=== PATIENT | male | born 1945 | race Caucasian/White ===

== ENCOUNTER 2017-07-27 09:28 | Inpatient (IN) | payer OTHER ==
[2017-07-27] MEDS ORDERED: LIDOCAINE HCL 4% TOPICAL SOLN 50ML ONE (09:48)
[2017-07-27] MEDS ORDERED: OXYMETAZOLINE 30 ML NASAL SPRAY ONE (09:48)
[2017-07-27] MEDS ORDERED: LR 1,000 ML IV ONE (09:55)
[2017-07-27] MEDS ORDERED: LIDOCAINE 1% 2 ML INJ ID PRN (09:55)
--- NOTE | 2017-07-27 10:14 | PDHPUP ---
History & Physical Update H&P update statement: This history and physical update is based on an assessment of the patient which was completed after admission or registration (within 24 hours), but prior to the surgery/procedure. H&P update: H&P reviewed & patient examined
--- NOTE | 2017-07-27 10:43 | CPEKG ---
Heart Rate: 58 RR Interval: 1034 P-R Interval: 212 QRSD Interval: 96 QT Interval: 452 QTC Interval: 445 P Centerpoint: -8 QRS Centerpoint: -40 T Wave Centerpoint: 44 EKG Severity - ABNORMAL ECG - EKG Impression: SINUS BRADYCARDIA EKG Impression: VENTRICULAR PREMATURE COMPLEX EKG Impression: LEFT ANTERIOR FASCICULAR BLOCK Electronically Signed By: Esteban Mittal 28-Jul-2017 09:42:39
[2017-07-27] MEDS ORDERED: MIDAZOLAM 2 MG/2 ML VIAL IVP ONE (11:10)
--- NOTE | 2017-07-27 11:12 | PDANEPAE ---
ANE Past Medical History - Cardiovascular History Hx Hypertension: Yes Hx Arrhythmias: No Hx Chest Pain: No Hx Coronary Artery / Peripheral Vascular Disease: Yes Hx CHF / Valvular Disease: No Hx Palpitations: No Cardiovascular History Comment: stent placed 10 yrs ago - Pulmonary History Hx COPD: No Hx Asthma/Reactive Airway Disease: No Hx Recent Upper Respiratory Infection: No Hx Oxygen in Use at Home: Yes O2 in Use at Home (L/minute): 4L Hx Sleep Apnea: Yes Sleep Apnea Screening Result - Last Documented: Positive Pulmonary History Comment: CORRINE - Neurologic History Hx Cerebrovascular Accident: No Hx Seizures: No Hx Dementia: No - Endocrine History Hx Diabetes: Yes Endocrine History Comment: IDDM - Renal History Hx Renal Disorders: Yes Renal History Comment: RENAL FAILURE - Liver History Hx Hepatic Disorders: No - Neurological & Psychiatric Hx Hx Neurological and Psychiatric Disorders: Yes Neurological / Psychiatric History Comment: TREMOR LEFT ARM - Cancer History Hx Cancer: No - Congenital Disorder History Hx Congenital Disorders: No - GI History Hx Gastrointestinal Disorders: No - Other Health History Other Health History: lump in throat - Chronic Pain History Chronic Pain: No - Surgical History Prior Surgeries: 10yrs ago back surgery. miniscus removed ANE Review of Systems Review of Systems: - Exercise capacity METS (RN): 3 METS ANE Patient History - Allergies Allergies/Adverse Reactions: No Known Allergies Allergy (Verified 07/23/17 14:29) - Home Medications Home Medications: Allopurinol 07/23/17 [Last Taken 1 Day Ago ~07/26/17] Amlodipine Besylate 07/23/17 [Last Taken 1 Day Ago ~07/26/17] Aspirin 81mg (*) 07/23/17 [Last Taken 2 Days Ago ~07/25/17] Lantus 07/23/17 [Last Taken 07/26/17 19:00] Metoprolol Succinate 07/23/17 [Last Taken 1 Day Ago ~07/26/17] Pioglitazone HCl 07/23/17 [Last Taken 1 Day Ago ~07/26/17] - NPO status NPO Since - Liquids (Date): 07/26/17 NPO Since - Liquids (Time): 19:00 NPO Since - Solids (Date): 07/26/17 NPO Since - Solids (Time): 19:00 - Anes Hx Anes Hx: no prior problems - Smoking Hx Smoking Status: Never smoked - Family Anes Hx Family Hx Anesthesia Complications: none ANE Labs/Vital Signs - Labs Result Diagrams: 07/27/17 10:20 - Vital Signs Blood Pressure: 156/73 Heart Rate: 57 Respiratory Rate: 18 O2 Sat (%): 97 Height: 182.88 cm Weight: 120.656 kg ANE Physical Exam - Airway Neck exam: FROM Mallampati Score: Class 3 Mouth exam: normal dental/mouth exam - Pulmonary Pulmonary: no respiratory distress, no rales or rhonchi, clear to auscultation - Cardiovascular Cardiovascular: regular rate and rhythym, no murmur, rub, or gallop - ASA Status ASA Status: III ANE Anesthesia Plan Anesthesia Plan: MAC (Tracheostomy under MAC, then laryngoscopy and biopsies under GA.)
[2017-07-27] MEDS ORDERED: ACETAMINOPHEN 500 MG TAB PO PRN (11:13)
[2017-07-27] MEDS ORDERED: HYDROCODONE/APAP 5/325 TAB PO PRN (11:13)
[2017-07-27] MEDS ORDERED: ONDANSETRON 4 MG/2 ML VIAL IVP PRN ×2 (11:13→12:51)
[2017-07-27] MEDS ORDERED: NALOXONE HCL 0.4 MG/ML INJ IVP PRN (11:13)
[2017-07-27] MEDS ORDERED: ONDANSETRON 4 MG/2 ML VIAL ONE ×2 (11:23→12:49)
[2017-07-27] MEDS ORDERED: fentaNYL 100 MCG/2 ML INJ ONE ×2 (11:23→13:22)
[2017-07-27] MEDS ORDERED: PROPOFOL 200 MG/20 ML VIAL ONE (11:23)
[2017-07-27] MEDS ORDERED: LIDOCAINE 2% 5 ML SDV ONE (11:27)
[2017-07-27] MEDS ORDERED: SUCCINYLCHOLINE CHLORIDE 200 MG/10 ML SYR IVP ONE (12:21)
--- NOTE | 2017-07-27 12:45 | POSTOPPROG ---
Post Op Note Date of Operation: 07/27/17 Surgeon: Jovany Alcaraz Welfare Adviser: Sonny Anesthesiologist: Sarah Anesthesia: IV Sedation Pre-op Diagnosis: tumor base of tonguwe with airway obstructiomn Post-op Diagnosis: same Procedure: tracheostomy laryngoscopy and biopsy of base of tongue lesion Findings: Huge base of tongue tumor Inf/Abcess present in the surg proc area at time of surgery?: No Depth: Deep Incisional (Fascial) EBL: 50-100 Total fluids administered: 500 Complications: none
--- NOTE | 2017-07-27 12:48 | POSTANESTH ---
Post Anesthetic Evaluation Cardiovascular Status: Normal, Stable Respiratory Status: Other, See Comment (Tolerating new trach reasonably well.) Level of Consciousness/Mental Status: Can Participate in Eval, Alert and Oriented Pain Control: Adequate, Prn Tx Ordered Nausea/Vomiting Control: Adequate, Prn Tx Ordered Complications Possibly Related to Anesthesia: None Noted
[2017-07-27] MEDS ORDERED: HYDROCOD/APAP 7.5/325 IN 15ML UDCUP PO PRN (12:51)
[2017-07-27] MEDS ORDERED: PROMETHAZINE HCL 25 MG/ML INJ ONE (13:13)
[2017-07-27] MEDS: PROMETHAZINE HCL 25 MG/ML INJ IVP PRN ×2 (13:17→13:45)
[2017-07-27] MEDS: fentaNYL 100 MCG/2 ML INJ IVP PRN ×2 (13:25→13:45)
--- NOTE | 2017-07-27 14:40 | SOAPPROG ---
SOAP Progress Note Assessment/Plan: Assessment: 71 year old male s/p direct laryngoscopy, base of tongue biopsy, and placement of tracheostomy by Dr. Alcaraz. He is doing well. Tracheostomy secure. Frozen section consistent was with squamous cell carcinoma. Findings discussed with patient and his . Plans to change tracheostomy tube and discharge 3-5 days. We will see patient tomorrow. *Patient was also evaluated by Dr. Dennis.* 07/27/17 14:35 Subjective: Patient doing well. Minimal pain. Breathing much improved with tracheostomy in place. Objective: Vital Signs Temp Pulse Resp BP Pulse Ox 36.5 C 56 L 10 L 139/62 H 96 07/27/17 13:59 07/27/17 13:59 07/27/17 13:59 07/27/17 14:14 07/27/17 13:59 Laboratory Results 07/27/17 10:20 07/26/17 07/27/17 07/28/17 05:59 05:59 05:59 Intake Total 600 Output Total 75 Balance 525 - Time Spent With Patient Time Spent With Patient: 15 minutes - Pending Discharge Pending Discharge Within 24 Hours: No Physical Exam - Physical Exam General Appearance: alert, no apparent distress EENT: other (Tracheostomy in place. Secure. Minimal secretions.) Respiratory: No respiratory distress, No stridor Skin: normal color ICD10 Worksheet Patient Problems: Problems Problem Status Onset Carcinoma of base of tongue Acute - ICD10 Problem Qualifiers (1) Carcinoma of base of tongue
--- NOTE | 2017-07-28 07:44 | SOAPPROG ---
SOAP Progress Note Assessment/Plan: Assessment: pt with mild pain some thick trach secretions trach function adequate Plan: 07/28/17 07:40 in crease activity, ambulate. Encourage p.o. Will have rt and med onc see patient once final path returned. Will ask for hospitalist assist with glucose management 07/28/17 07:43 Objective: Vital Signs Temp Pulse Resp BP Pulse Ox 36.7 C 76 20 124/53 H 93 07/27/17 18:00 07/28/17 06:00 07/28/17 06:00 07/28/17 06:00 07/28/17 06:00 Laboratory Results 07/27/17 10:20 07/27/17 07/28/17 07/29/17 05:59 05:59 05:59 Intake Total 1181 Output Total 75 Balance 1106 ICD10 Worksheet Patient Problems: Problems Problem Status Onset Carcinoma of base of tongue Acute
--- NOTE | 2017-07-28 08:45 | PDMN ---
Medical Necessity Medical necessity: [facility] IP only surgery; cpt 70438 (Head & Neck Surgery) s/p direct laryngoscopy, base of tongue biopsy & placement of tracheostomy; per op report & order 07/28/17
[2017-07-28] MEDS ORDERED: ALLOPURINOL 300 MG TAB PO SCH (09:00)
[2017-07-28] MEDS ORDERED: MULTIVITAMINS 1 EACH TAB PO SCH (09:00)
[2017-07-28] MEDS ORDERED: PIOGLITAZONE HCL 15 MG TAB PO SCH (09:00)
[2017-07-28] MEDS ORDERED: HYDROCHLOROTHIAZIDE 25 MG TAB PO SCH (09:00)
[2017-07-28] MEDS ORDERED: PIOGLITAZONE HCL 30 MG PO SCH (09:00)
[2017-07-28] MEDS ORDERED: LOSARTAN POTASSIUM 50 MG TAB PO SCH (09:00)
[2017-07-28] MEDS ORDERED: D50W 25 GM/50 ML SYR IVP PRN (11:10)
--- NOTE | 2017-07-28 12:17 | PDINTPN ---
Cardiac Rehabilitation Specialist Progress Note Assessment/Plan: Assessment: Tongue Cancer: Pathology should be back by tomorrow AM. S/P trach: TOleating well. Able to voice weakly. Not taking PO. CKD: Cr 2.9 yesterday. Apparently this is in the range of his baseline DM: BSs higher today, likely due to being off OHAs HTN: BP good currently Plan: Dr. Weber to see tomorrow to place PEG Dr. Garland to see/follow regarding CKD Dr. Saunders to see for oncology eval/Rx Will start SSI. Give Actos when able to tolerate. Will hold Losartan/HCTZ for today, check lytes, reassess tomorrow. Discusssed with Dr. Turner and all above MDs, dimitris and . 30 minutes total time, >50% counseling/coordinating care. 07/28/17 12:14 07/28/17 12:17 Subjective: Reports some tenderness/soreness at trach site. Hurts to swallow. No dyspnea. Objective: Vital Signs Temp Pulse Resp BP Pulse Ox 36.7 C 76 20 124/53 H 93 07/27/17 18:00 07/28/17 06:00 07/28/17 06:00 07/28/17 06:00 07/28/17 06:00 Laboratory Results 07/27/17 10:20 07/27/17 07/28/17 07/29/17 05:59 05:59 05:59 Intake Total 1181 Output Total 75 Balance 1106 Physical Exam - Physical Exam General Appearance: alert, no apparent distress EENT: normal ENT inspection Neck: other (minimal blood around trach site.) Respiratory: lungs clear Cardiac/Chest: normal peripheral pulses, regular rate, rhythm, No edema Abdomen: normal bowel sounds, non-tender Skin: normal color, warm/dry Extremities: normal inspection Neuro/Psych: alert, normal mood/affect, oriented x 3 ICD10 Worksheet Patient Problems: Problems Problem Status Onset Carcinoma of base of tongue Acute
--- NOTE | 2017-07-28 12:26 | SOAPPROG ---
SOAP Progress Note Assessment/Plan: Assessment: 1. CKD IV. Likely diabetic nephropathy. Creatinine at baseline. Can hold ARB/diuretic for 1-2 days until stable with G-tube feeds. Will follow along. 2. HTN. Continue amlodipine. 3. Tongue mass. Likely squamous cell cancer. Dr. Saunders evaluating, will likely have carboplatin/ paclitaxel. Unable to tolerate cisplatin. s/p tracheostomy. G-tube Wednesday. Plan: 07/28/17 12:27 Subjective: Reviewed case with Dr. Blunt/Nicky. Patient well known to me from clinic. CKD IV with baseline creatinine 2.5-3.0 over the past year, 2.5 g proteinuria, IDDM, HTN, CAD s/p stenting 2008, CORRINE on CPAP, has had problems with hoarseness over past 2 months. Had bx of deep tongue base tumor yesterday. S/p tracheostomy today. C/o pain in throat. Objective: Vital Signs Temp Pulse Resp BP Pulse Ox 36.7 C 76 20 124/53 H 93 07/27/17 18:00 07/28/17 06:00 07/28/17 06:00 07/28/17 06:00 07/28/17 06:00 Laboratory Results 07/27/17 10:20 07/27/17 07/28/17 07/29/17 05:59 05:59 05:59 Intake Total 1181 Output Total 75 Balance 1106 Alert, responsive, mild discomfort Responds appropriately to questions, cannot vocalize d/t trach Tracheostomy in place\ Cough productive of thick phlegm RRR, no m/g/r CTAB Abdom soft, nontender Tr ankle pitting edema ICD10 Worksheet Patient Problems: Problems Problem Status Onset Carcinoma of base of tongue Acute
--- NOTE | 2017-07-28 12:27 | GCON ---
[f rep st] CONSULTATION PULMONARY/CRITICAL CARE CONSULTATION DATE OF CONSULTATION: 07/27/2017 REFERRING PHYSICIAN: Daniel Ortega MD REASON FOR REFERRAL: Diabetes as well as renal insufficiency. HISTORY: Mr. Ortega is a 71-year-old male with history of renal insufficiency, diabetes, and hyperte nsion, who has been having difficulty swallowing for weeks. He has lost about 32 pounds. He was see n by Dr. Alcaraz, who did an outpatient laryngoscopy and found a large mass at the tongue base. He wa s taken to the operating room today where we placed tracheostomy for airway management and did 2 biop sies of the tongue base mass. Pathology is pending. The patient reports significant pain with swall owing, and is unable to take ice chips. He denies shortness of breath. He does have some cough with some blood. PAST MEDICAL HISTORY: 1. Chronic renal insufficiency. The patient is followed by Dr. Garland. His creatinine apparently runs around 2.5. 2. Hypertension. 3. Diabetes. 4. Hypercholesterolemia. MEDICATIONS: Allopurinol, amlodipine, losartan, metoprolol, Actos. ALLERGIES: None. SOCIAL HISTORY: The patient is a nonsmoker. FAMILY HISTORY: Unremarkable. REVIEW OF SYSTEMS: A 10-point review of systems adds nothing to the history of present illness. PHYSICAL EXAMINATION: GENERAL: The patient is awake, alert, and in no acute distress. VITAL SIGNS: Blood pressure is 123/65 with a heart rate of 56. He is afebrile. Oxygen saturations are 96% on 3 5% trach collar. HEENT: Normocephalic and atraumatic. No icterus. NECK: No adenopathy. Tracheos venita tube is in place. There is some clotted blood at the orifice with coughing. No adenopathy. CH EST: Clear to auscultation. CARDIAC: Regular rate and rhythm without murmur. ABDOMEN: Soft, nont mindy. Bowel sounds are present. EXTREMITIES: No clubbing, cyanosis, or edema. NEURO: The patien t is awake, alert. He follows commands. There are no gross motor or sensory deficits. LABORATORY: Creatinine is 2.9, BUN is 33, glucose is 82. ASSESSMENT: 1. Tongue based tumor status post biopsy. The patient is reporting some pain from this. He is unab le to swallow. 2. Status post tracheostomy. There is a small amount of blood at the surgical site as expected. Hi s airway is patent and he is breathing comfortably. 3. Renal insufficiency. The patient's creatinine is elevated. This is apparently chronic, but may be somewhat higher than his baseline. 4. Diabetes. The patient's blood sugars are currently okay. They may arise however, if he is unabl e to take his Actos. 5. History of hypertension. The patient's blood pressure is currently normal. RECOMMENDATIONS: 1. Discussed the case with Dr. Garland, who is the patient's outpatient reservoir engineering consultant. He will see t he patient in consultation. 2. Follow blood sugars closely. Sliding scale insulin will be started. The patient's Actos will be given once he is able to take p.o. 3. Morphine will be used as needed for throat pain. 4. Monitor blood pressure and adjust blood pressure medications if needed perioperatively. /[id number]/MODL
--- NOTE | 2017-07-28 12:47 | GCON ---
[f rep st] CONSULTATION REFERRING PHYSICIAN: Rafat Alcaraz MD HISTORY OF PRESENT ILLNESS: I was asked by Dr. Alcaraz to evaluate this 71-year- old male who presents with weight loss and a history of increasing hoarseness and difficulty swallowing. On exam in the office, he was noted to have an extensive mass arising from the base of the tongue, prolapsing over the airway and blocking visualization of the vocal cords. This was felt to be an imminent risk to his airway and he was taken to surgery, where a tracheostomy was placed. He is currently recovering from this procedure. The base of the tongue mass was biopsied and pathology is pending. Dr. Alcaraz on exam prior to the tracheostomy noted some enlarged cervical lymph nodes. There was no other obvious pathology noted. PAST MEDICAL HISTORY: Significant for diabetes, hyperlipidemia, hypertension, glaucoma, cataracts, and renal insufficiency. MEDICATIONS ON ADMISSION: Include allopurinol, amlodipine, losartan, metoprolol. SOCIAL HISTORY: He is a lifelong nonsmoker. PHYSICAL EXAM: GENERAL: The patient has a tracheostomy. VITAL SIGNS: Blood pressure 124/53. He is afebrile. Heart rate 76. He is not otherwise examined at this time. Creatinine as of 07/27 was 2.9, his baseline seems to be about 2.5, blood sugar 172. He has not had a CBC to my knowledge since August of 2010. 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 Most of these are HPV positive, which may be encouraging in terms of treatment and prognosis,although, the extent of disease is significant and he may have palpable cervical nodes. There is a plan for a G tube, which I think is reasonable. We will obtain a PET scan as an outpatient. Basic treatment for this would involve chemo-RT. He would not be a candidate for cisplatinum, but carboplatin/taxol might be reasonable. There may be some consideration as to whether some type of neoadjuvant treatment would be indicated. We will also involve radiation therapy. Our service will follow with you. /[id number]/MODL MTDD
[2017-07-28] MEDS: INSULIN REGULAR HUMAN 100 UNIT/ML UNIT SC SCH ×2 (14:15→18:07)
--- NOTE | 2017-07-28 14:30 | ASMTCMCOM ---
CM Note CM Note Notes: Patient admitted for biopsy of tongue mass. He also had a tracheostomy placed for airway protection. He will have a G tube placed in two days. He has a history of Diabetes and chronic renal insufficiency. His aircraft machinist helper, Dr Garland, will follow him here. Oncology will follow for treatment options of this probable squamos cell carcinoma. Patient is normally independent and has a supportive . PT/OT have been ordered, and Case Management will assist with discharge planning. Date Signed: 07/28/2017 02:30 PM Electronically Signed By:Rochelle Villanueva RN
--- NOTE | 2017-07-28 17:59 | GOP ---
[f rep st] OPERATIVE REPORT Amended report DATE OF OPERATION: 07/27/2017 SURGEON: Rafat Alcaraz MD HEAD OF STOCK: Dr. Denny Dennis. ANESTHESIA: General endotracheal. PREOPERATIVE DIAGNOSIS: Airway obstruction secondary to large infiltrative base of tongue process. POSTOPERATIVE DIAGNOSIS: Airway obstruction secondary to large infiltrative base of tongue process. PROCEDURE PERFORMED: Tracheostomy with laryngoscopy and biopsy of base of tongue lesion. FINDINGS: Extensive base of tongue tumor treated by tracheostomy with laryngoscopy and biopsy. ESTIMATED BLOOD LOSS: 50 mL. DESCRIPTION OF PROCEDURE: The patient was placed on the operating table in the supine position. After administration of IV sedation, infiltration of the soft tissues anterior to the trachea was performed utilizing 1% lidocaine with 1:100, 000 parts epinephrine. At this point, once sterile prep and drape had been completed, an incision was made in a naturally occurring skin crease midway between the cricoid cartilage and the sternal notch. The incision was then carried down through the skin and through the subcutaneous tissues. Once through this, the fibro fatty tissues overlying strap musculature were bluntly and sharply divided. Hemostasis was obtained throughout this dissection by use of Bovie electrocautery. As dissection proceeded deeper, the strap muscles were encountered. These were then reflected further laterally. Once this had been completed, a large thyroid isthmus was noted to be present overlying the anterior tracheal wall. This was clamped and cut and tied with 2-0 silk suture ligatures and then reflected off the anterior tracheal wall. Once this had been completed, the cricoid cartilage was identified and a trach hook was inserted deep to the cricoid cartilage. The endotracheal mucosa was anesthetized with 4% lidocaine injected through the anterior tracheal wall. An incision was then planned and created through the 2nd and 3rd tracheal rings in a vertical fashion. Cruciate extensions to the right and left were then created using sharp scissors, and then a tracheal dilator was inserted through the tracheostomy. A #8 cuffed Portex trach tube was inserted through the tracheostomy and end-tidal CO2's were then assessed. Once returned, the trach hook was withdrawn. The tracheostomy tube was sutured into place with four 2-0 silk sutures. Trach ties were snugly tied around the neck. Once this had been completed, the patient was given general anesthetic, and once completely anesthetized, attention was directed to the laryngoscopy with biopsy. Sterile eye pads and head drape were placed. A rubber tooth guard was placed along the upper incisors to protect them. The Dedo laryngoscope was advanced in the oral cavity , and extensive and huge base of tongue tumor was identified. In spite of thorough attempts at visualization of the larynx by 2 experienced otolaryngologists, we were unable to visualize the larynx. At this point, numerous biopsies were taken of the base of tongue lesion and sent for fresh evaluation. This was subsequently returned as consistent with squamous cell carcinoma. At this point, the procedure was terminated. The patient was then awakened, transferred to the postanesthesia recovery area in stable condition. FLUID REPLACEMENT: 500 mL. COMPLICATIONS: None. /[id number]/MODL Add acc#, 07/29/17, [place] BELLA
[2017-07-29] MEDS: INSULIN REGULAR HUMAN 100 UNIT/ML UNIT SC SCH ×5 (04:14→22:05)
[2017-07-29 04:54] LABS: PLATELET COUNT 117 10^3/uL (150-400)
--- NOTE | 2017-07-29 09:13 | SOAPPROG ---
SOAP Progress Note Assessment/Plan: Assessment: pt with mild pain some thick trach secretions trach function adequate Plan: 07/28/17 07:40 in crease activity, ambulate. Encourage p.o. Will have rt and med onc see patient once final path returned. Will ask for hospitalist assist with glucose management 07/28/17 07:43 Subjective: pt with min pain new fever to 100 thick tracheal secretions low 02 sats. Pt placed on CPAP last pm will check cxr this am tsputum culture to be performed will ambulate tid pt to have PEG tube placed tomorrow Awaiting heme onc consult. will change trach tube late tomorrow or early sat am Objective: Vital Signs Temp Pulse Resp BP Pulse Ox 38.0 C 93 25 H 140/73 H 60 L 07/29/17 08:00 07/29/17 08:00 07/29/17 08:00 07/29/17 08:00 07/29/17 08:00 Laboratory Results 07/29/17 04:45 07/29/17 04:45 07/28/17 07/29/17 07/30/17 05:59 05:59 05:59 Intake Total 1181 775 Output Total 75 250 Balance 1106 525 ICD10 Worksheet Patient Problems: Problems Problem Status Onset Carcinoma of base of tongue Acute
[2017-07-29] MEDS ORDERED: NS 1,000 ML IV ONE (09:31)
--- NOTE | 2017-07-29 09:38 | PDINTPN ---
Optician Progress Note Assessment/Plan: Assessment: Tongue Cancer: Pathology should be back by tomorrow AM. S/P trach: Tolerating well. Able to voice weakly. Not taking PO. Acute hypoxemic respiratory failure: Required CPAP overnight. Now on Vapotherm. CXR with basilar infiltrates, has purulent secretions. Fever: Elevated WBC. Likely pulmonary source, with hypoxemia, infiltrates, hypoxemia CKD: Cr up to 3.7 today. Low urine output. ? Pre-renal, related to infection. DM: BSs better today, likely due to being off OHAs HTN: BP high-normal currently Plan: Sputum Cx I will bronch later this AM Start Levaquin empiric coverage for possible bronchopneumonia Follow BSs Check Urinalysis, Urine Cr and Na Give 1 liter NS bolus. May be best to run BP on high-normal side for renal perfusion. Will hold Losartan/HCTZ for today until seen by Dr. Garland. OOB 3x/day Dr. Weber to see to place PEG Dr. Saunders following oncology eval/Rx Will start SSI. Give Actos when able to tolerate. 07/29/17 09:47 Subjective: Feels OK. Quite weak. Some productive cough. Minimal pain. Objective: Vital Signs Temp Pulse Resp BP Pulse Ox 38.0 C 93 25 H 140/73 H 60 L 07/29/17 08:00 07/29/17 08:00 07/29/17 08:00 07/29/17 08:00 07/29/17 08:00 Laboratory Results 07/29/17 04:45 07/29/17 04:45 07/28/17 07/29/17 07/30/17 05:59 05:59 05:59 Intake Total 1181 775 Output Total 75 250 Balance 1106 525 CXR: Basilar atelectasis/infiltrate. Images reviewed by me. Laboratory Tests 07/29/17 04:10 pCO2 40 H pO2 53 L Total CO2 23 ABG pH 7.35 ABG O2 Saturation 86 L O2 Concentration % 100 Physical Exam - Physical Exam General Appearance: alert, no apparent distress EENT: normal ENT inspection Neck: other (trach site OK, some purulent secretions.) Respiratory: lungs clear, No normal breath sounds Cardiac/Chest: regular rate, rhythm, No edema Abdomen: normal bowel sounds, non-tender Skin: normal color, warm/dry Extremities: normal inspection Neuro/Psych: alert, normal mood/affect, oriented x 3 ICD10 Worksheet Patient Problems: Problems Problem Status Onset Carcinoma of base of tongue Acute
[2017-07-29] MEDS ORDERED: levOFLOXACIN 500 MG/DEXTROSE 100 ML IV SCH (10:00)
--- NOTE | 2017-07-29 10:28 | SOAPPROG ---
SOAP Progress Note Assessment/Plan: Assessment: 1. DALY on CKD IV. UOP low. High insensible losses with trach, could be dry. s/p bolus 1 L NS. BP has not been low. Has not received nephrotoxins or IV contrast. Has condom cath not vasquez. Check bladder scan/PVR. May have SINGH. Hold ARB/diuretic. Check UA, urine lytes. 2. CKD IV. Likely diabetic nephropathy. Nephrotic. Will follow along. 2. HTN. Continue amlodipine. 3. Tongue mass. Bx shows invasive squamous cell cancer. Dr. Saunders evaluating, will likely have carboplatin/paclitaxel + XRT. Unable to tolerate cisplatin. Possible cervical node involvement. HPV studies pending. Outpatient PET CT scan. s/p tracheostomy. G-tube tomorrow. Plan: 07/28/17 12:27 07/29/17 10:25 07/29/17 10:28 07/29/17 10:29 07/29/17 10:30 07/29/17 10:32 Subjective: Had worsening hypoxemia over night requiring vent/CPAP. Back on vapotherm through trach now. Has had a lot of thick secretions. C/o throat pain. Frustrated with his situation. Objective: Vital Signs Temp Pulse Resp BP Pulse Ox 38.0 C 97 27 H 138/63 H 100 07/29/17 08:00 07/29/17 10:00 07/29/17 10:00 07/29/17 10:00 07/29/17 10:00 Laboratory Results 07/29/17 04:45 07/29/17 04:45 07/28/17 07/29/17 07/30/17 05:59 05:59 05:59 Intake Total 1181 775 Output Total 75 250 Balance 1106 525 Tearful, in chair, using trach and vapotherm O2 at 80% NAD RRR, no m/g/r, distant heart sounds CTAB Abdom obese, nontender No edema Condom cath in place CXR: L basilar opacity, low lung volumes ICD10 Worksheet Patient Problems: Problems Problem Status Onset Carcinoma of base of tongue Acute
--- NOTE | 2017-07-29 12:28 | SOAPPROG ---
SOAP Progress Note Assessment/Plan: Assessment: Squamous cell ca base of tongue, hpv testing pending Plan:continue to recover from trach, plan on outpt pet/rt consult. G tube today 07/29/17 12:27 Objective: Vital Signs Temp Pulse Resp BP Pulse Ox 100.4 F 97 27 H 138/63 H 97 07/29/17 08:00 07/29/17 10:00 07/29/17 10:00 07/29/17 10:00 07/29/17 10:52 Laboratory Results 07/29/17 04:45 07/29/17 04:45 07/28/17 07/29/17 07/30/17 05:59 05:59 05:59 Intake Total 1181 365 Output Total 75 250 Balance 1106 525 ICD10 Worksheet Patient Problems: Problems Problem Status Onset Carcinoma of base of tongue Acute
[2017-07-29] MEDS ORDERED: MIDAZOLAM 2 MG/2 ML VIAL IVP PRN (12:56)
[2017-07-29] MEDS ORDERED: LIDOCAINE 1% 300 MG/30 ML SDV MISC ONE (13:06)
--- NOTE | 2017-07-29 14:03 | GPN ---
[f rep st] PROCEDURE NOTE DATE OF PROCEDURE: 07/29/2017 PROCEDURE: Flexible fiberoptic bronchoscopy. INDICATION OF PROCEDURE: Hypoxemia with retained secretions. PROCEDURE NOTE: After the risks and benefits of the procedure were explained to the patient, who agr eed to proceed, the entire procedure was performed in the intensive care unit with the patient under blood pressure, EKG, and oximetry monitoring. It was my assessment that there was no risk of airborn e infection from the procedure. After an appropriate time-out, 3 cc 1% lidocaine were instilled into the patient's tracheostomy tube. The bronchoscope was advanced through the tracheostomy tube, where I encountered a moderate amount of purulent secretions in the distal trachea and in the left mainste m bronchus. These were easily suctioned. The patient's saturations fell from the upper 80s to the l ow 70s and improved with manual bagging. The bronchoscope was then reintroduced into the tracheobron chial tree and further topical anesthesia was given with 1% lidocaine. I then turned to the right-si ded airways, where a moderate amount of purulent secretions was encountered primarily in the lower lo be. These were easily suctioned. The mucosa was somewhat indurated and thickened in both bronchial trees. I then returned to the left-sided airways, where further thin purulent mucus was suctioned fr om the left lower lobe. A small volume lavage was done of both lower lobes. All airways were clear of secretions at the end of the procedure. The patient received 2 mg of Versed and 3 mg of morphine intravenously for analgesia and sedation. The patient saturations were 90% at the end of the procedu re. No specimens were sent. There were no complications at the end of the procedure besides hypoxem ia as documented above. /[id number]/MODL
[2017-07-29] MEDS: HEPARIN 5,000 UNIT/0.5 ML SYR SC SCH ×2 (14:59→22:32)
--- NOTE | 2017-07-29 16:04 | ASMTCMCOM ---
CM Note CM Note Notes: Patient's biopsy came back positive for cancer. Met with patient's , Arlene for emotional support along with Chaplain Ernestine. Arlene states patient has been active and they have made many wonderful memories in the first 7 years of their nursing home together. Arlene really wants to make sure she is asking what the patient wants to do in terms of pursuing treatment for the cancer but he cannot talk right now. She states they have always had good communication and worries he might not be able to talk. Suggested she explore assistive technology and that during periods of time right now maybe they can text back and forth to communicate. Arlene had not thought of this and was encouraged this could be a solution and strategy for during chemo treatments. Arlene hopes to talk to patient on Wednesday when they might cap the trach so he can communicate. She hopes to find out how much treatment he wants to pursue. D/C plan is unclear presently. OT/PT/Sorting Cows Worker have all been ordered. CM will follow. Date Signed: 07/29/2017 04:04 PM Electronically Signed By:Amee Borrego LCSW
--- NOTE | 2017-07-29 18:59 | GCON ---
[f rep st] CONSULTATION GI CONSULTATION REQUESTING PHYSICIAN: Dr. Kong Alcaraz. REASON FOR CONSULTATION: Feeding difficulties and dysphagia. HISTORY OF PRESENT ILLNESS: Sukhjinder is a 71-year-old gentleman, who was recently diagnosed with invasive moderately differentiated squamous cell carcinoma, on biopsy of the base of the tongue, by Dr. Kong Alcaraz, on 07/27/2017. He did have a tracheostomy placed at that time for protection of airway, as the patient was having recurrent aspiration. I was asked to see the patient for consideration of PEG tube placement due to difficulty swallowing. MEDICATIONS: Prior to admission included allopurinol, amlodipine, losartan, metoprolol, and Actos. PAST MEDICAL HISTORY: Significant for hypertension, chronic renal insufficiency , diabetes mellitus. ALLERGIES: He has no known drug allergies. FAMILY HISTORY: Negative for head and neck tumors. SOCIAL HISTORY: He is a nonsmoker. He lives with his in [place]. He does not drink significant quantities of alcohol. REVIEW OF SYSTEMS: Other than dysphagia, weight loss, and coughing spells, was negative for comprehensive review of systems. PHYSICAL EXAMINATION: VITAL SIGNS: On my examination today, the patient's BMI was 36. Weight is 120.6 kg. Pulse is 97, regular. Blood pressure 138/66, respiratory rate was 25-28, O2 saturation 96% on BiPAP humidified with an FiO2 of 60%. GENERAL APPEARANCE: Well-developed obese gentleman with a barrel chest and bull neck with a trach in place. INTEGUMENT: Clear. HEENT: Head atraumatic, normocephalic. Pupils equal, round, reactive to light. EOMs intact. Sclerae nonicteric. Nares patent. Mucous membranes moist. Dentition fair. Trachea was midline with tracheostomy in place. No palpable cervical or axillary adenopathy. LUNGS: Clear to percussion and auscultation. CARDIOVASCULAR: Regular rhythm and rate. Normal S1, S2 without murmur. Peripheral pulses decreased bilaterally. No pedal edema. GASTROINTESTINAL: Abdomen protuberant and obese. Positive bowel sounds. No liver or spleen tip palpable. No masses, tenderness, or scars noted. EXTREMITIES: Without deformity. NEURO: Patient was alert and oriented x3. No focal neurologic deficits. LABS: White count 19,000, hemoglobin 10.0, hematocrit 30.9, MCV 95.1, MCHC 32.4 , RDW 13.2, platelets 117,000. Blood glucose 152. Electrolytes normal. BUN 43 , creatinine 3.7, albumin 2.8. IMPRESSIONS: 1. Squamous cell carcinoma of the base of the tongue with tracheostomy in place for protection of airway from aspiration with dysphagia and need for chronic enteral feedings. 2. Obesity with body mass index of 36. 3. Hypertension, by history. 4. Diabetes, by history. 5. Renal insufficiency. RECOMMENDATIONS: EGD with PEG tube placement tomorrow, I had a lengthy discussion with the patient and his concerning pros and cons of procedure and increased risks due to his obesity, CRF, diabetes and airway issues. I would recommend this be done with propofol anesthesia, they are agreeable, and we will proceed with this tomorrow at 10:30 a.m. /[id number]/MODL MTDD
[2017-07-30] MEDS: HEPARIN 5,000 UNIT/0.5 ML SYR SC SCH ×3 (06:40→22:47)
[2017-07-30] MEDS ORDERED: ALTEPLASE 2 MG VIAL IVP PRN (08:18)
--- NOTE | 2017-07-30 08:37 | SOAPPROG ---
SOAP Progress Note Assessment/Plan: Assessment: Trach secure. Plan to change trach. later today. Will d/w Dr. Alcaraz. May still need cuffed trach as he is having secretions with need for BiPAP. Plan for PEG later today. Discussed with RT and Rom in nursing. Plan: 07/30/17 08:35 07/30/17 08:36 Objective: Vital Signs Temp Pulse Resp BP Pulse Ox 37.4 C 79 17 129/57 H 97 07/29/17 20:00 07/30/17 06:00 07/30/17 06:00 07/30/17 06:00 07/30/17 06:00 Microbiology 07/29/17 09:10 - Final Sputum, Induced/Suctioned Laboratory Results 07/29/17 04:45 07/30/17 07:45 07/29/17 07/30/17 07/31/17 05:59 05:59 05:59 Intake Total 775 980 Output Total 250 410 Balance 525 570 ICD10 Worksheet Patient Problems: Problems Problem Status Onset Carcinoma of base of tongue Acute
[2017-07-30] MEDS: INSULIN REGULAR HUMAN 100 UNIT/ML UNIT SC SCH ×4 (09:35→22:41)
--- NOTE | 2017-07-30 10:02 | PDINTPN ---
Foreign Food [employer]ty Cook Progress Note Assessment/Plan: Assessment: Tongue Cancer: Pathology should be back by tomorrow AM. S/P trach: Tolerating well. Able to voice weakly. Not taking PO. Acute hypoxemic respiratory failure: Required CPAP overnight. Now on Vapotherm. CXR with basilar infiltrates, has purulent secretions + S. Aureus. Fever: Elevated WBC. Likely pulmonary source, with hypoxemia, infiltrates, hypoxemia CKD: Cr up to 3.7 yesterday. Unable to draw today. Oliguric. Not fluid responsive per NICOM yesterday. DM: BSs low 100s, likely has been high due to being off OHAs HTN: BP normal currently Plan: PICC line. Could consider a tunnelled catheter that would also be beneficial as an outpatient chemotherapy, but unable to draw labs (particularly K+) to be sure that he'd be OK for anesthesia. Continue Levaquin empiric coverage for possible bronchopneumonia. Will add Vanco until sputum S. Aureus sensitivities back. Follow BSs Check Urinalysis, Urine Cr and Na OOB 3x/day Trach change today/tomorrow Dr. Weber to see to place PEG Dr. Saunders following for oncology eval/Rx Continue SSI. 07/30/17 10:48 Subjective: Slept OK last night. Denies pain, dyspnea Objective: Vital Signs Temp Pulse Resp BP Pulse Ox 37.2 C 81 22 H 138/61 H 98 07/30/17 08:00 07/30/17 08:00 07/30/17 08:00 07/30/17 08:00 07/30/17 08:00 Microbiology 07/29/17 09:10 - Final Sputum, Induced/Suctioned Laboratory Results 07/29/17 04:45 07/30/17 07:45 07/29/17 07/30/17 07/31/17 05:59 05:59 05:59 Intake Total 775 980 Output Total 250 410 Balance 525 570 Microbiology 07/29/17 09:10 Sputum, Induced/Suctioned - Final 07/29/17 09:10 Sputum, Induced/Suctioned Sputum Culture - Preliminary Staphylococcus Aureus Physical Exam - Physical Exam General Appearance: alert, no apparent distress EENT: other (trach site OK) Neck: normal inspection Respiratory: lungs clear, normal breath sounds Cardiac/Chest: regular rate, rhythm, edema Abdomen: normal bowel sounds, non-tender Skin: normal color, warm/dry Extremities: normal inspection Neuro/Psych: alert, normal mood/affect, oriented x 3 ICD10 Worksheet Patient Problems: Problems Problem Status Onset Carcinoma of base of tongue Acute
[2017-07-30 11:11] LABS: PLATELET COUNT 103 10^3/uL (150-400)
[2017-07-30] MEDS ORDERED: LIDOCAINE 1% 300 MG/30 ML SDV ONE ×2 (11:24→15:53)
[2017-07-30] MEDS ORDERED: VANCOMYCIN 1.75 GM in D5W 500 ML IV ONE (11:30)
[2017-07-30] MEDS ORDERED: PROPOFOL/EMULSION 500 MG/50 ML BOTTLE IV ONE ×2 (11:35→16:37)
[2017-07-30] MEDS ORDERED: LIDOCAINE 2% 5 ML SDV ONE ×2 (11:39→16:42)
--- NOTE | 2017-07-30 11:39 | PDANEPAE ---
ANE History of Present Illness PEG placement ANE Past Medical History - Cardiovascular History Hx Hypertension: Yes Hx Arrhythmias: No Hx Chest Pain: No Hx Coronary Artery / Peripheral Vascular Disease: Yes Hx CHF / Valvular Disease: No Hx Palpitations: No Cardiovascular History Comment: stent placed 10 yrs ago - Pulmonary History Hx COPD: No Hx Asthma/Reactive Airway Disease: No Hx Recent Upper Respiratory Infection: No Hx Oxygen in Use at Home: Yes O2 in Use at Home (L/minute): 4L Hx Sleep Apnea: Yes Sleep Apnea Screening Result - Last Documented: Positive Pulmonary History Comment: CORRINE - Neurologic History Hx Cerebrovascular Accident: No Hx Seizures: No Hx Dementia: No - Endocrine History Hx Diabetes: Yes Endocrine History Comment: IDDM - Renal History Hx Renal Disorders: Yes Renal History Comment: RENAL FAILURE - Liver History Hx Hepatic Disorders: No - Neurological & Psychiatric Hx Hx Neurological and Psychiatric Disorders: Yes Neurological / Psychiatric History Comment: TREMOR LEFT ARM - Cancer History Hx Cancer: No - Congenital Disorder History Hx Congenital Disorders: No - GI History Hx Gastrointestinal Disorders: No - Other Health History Other Health History: lump in throat - Chronic Pain History Chronic Pain: No - Surgical History Prior Surgeries: 10yrs ago back surgery. miniscus removed ANE Review of Systems Review of Systems: - Exercise capacity METS (RN): 3 METS ANE Patient History - Allergies Allergies/Adverse Reactions: No Known Allergies Allergy (Verified 07/23/17 14:29) - Home Medications Home medications: home medication list seen and reviewed Home Medications: Allopurinol [Allopurinol 300 MG (RX)] 300 mg PO DAILY 07/23/17 [Last Taken 07/26] Aspirin [Aspirin 81mg (*)] 81 mg PO DAILY 07/23/17 [Last Taken 07/25/17] Pioglitazone HCl [Actos] 30 mg PO DAILY 07/23/17 [Last Taken 07/26/17] amLODIPine BESYLATE [Norvasc 10 mg (*)] 10 mg PO DAILY 07/23/17 [Last Taken ] Hydrochlorothiazide [HCTZ (*)] 25 mg PO DAILY 07/27/17 [Last Taken Unknown] Insulin Detemir [Levemir] 20 unit SQ DAILY 07/27/17 [Last Taken 07/26/17] Losartan Potassium [Cozaar 50 mg (*)] 100 mg PO DAILY 07/27/17 [Last Taken Unknown] Multivitamins [Multivitamin (*)] 1 each PO DAILY 07/27/17 [Last Taken Unknown] - NPO status NPO Since - Liquids (Date): 07/26/17 NPO Since - Liquids (Time): 19:00 NPO Since - Solids (Date): 07/26/17 NPO Since - Solids (Time): 19:00 - Smoking Hx Smoking Status: Never smoked - Family Anes Hx Family Hx Anesthesia Complications: none ANE Labs/Vital Signs - Labs Result Diagrams: 07/30/17 10:55 07/30/17 10:55 - Vital Signs Blood Pressure: 138/61 Heart Rate: 80 Respiratory Rate: 18 O2 Sat (%): 97 Height: 182.88 cm Weight: 120.656 kg ANE Physical Exam - Airway Neck exam: decreased ROM Mallampati Score: Class 3 Mouth exam: small mouth opening - Pulmonary Pulmonary: other (on BIPAP via trach) - Cardiovascular Cardiovascular: regular rate and rhythym - ASA Status ASA Status: IV ANE Anesthesia Plan Anesthesia Plan: general endotracheal anesthesia
--- NOTE | 2017-07-30 11:59 | SOAPPROG ---
SOAP Progress Note Assessment/Plan: Assessment/Plan: DALY on CKD 4: pt with baseline diabetic nephropathy with baseline Cr of 2.5-3.0 , up to 3.8 today, likely has ATN and Cr is plateauing. Nonoliguric, lytes ok. - No need for HD. - Will continue to monitor. - Ok to give IVFs if needed. - Holding ARB and diuretics. - Avoid hypotension and nephrotoxins. HTN: controlled on current meds, will monitor. FILIBERTO: pt currently NPO, no need for phos binder, will continue to monitor phos. Subjective: Pt has been on CPAP overnight, he notes his breathing has been tough. He has pain at trach site but no other pain. Still having some UOP. Objective: Vital Signs Temp Pulse Resp BP Pulse Ox 37.2 C 80 18 138/61 H 97 07/30/17 08:00 07/30/17 11:38 07/30/17 11:38 07/30/17 11:38 07/30/17 11:38 Microbiology 07/29/17 09:10 - Final Sputum, Induced/Suctioned Laboratory Results 07/30/17 10:55 07/30/17 10:55 07/29/17 07/30/17 07/31/17 05:59 05:59 05:59 Intake Total 775 980 Output Total 250 410 Balance 525 570 General: alert and oriented, no acute distress Eyes: EOMI, PERRL OP: Clear Neck: s/p trach CV: RRR Resp: trached and on CPAP Abd: Soft, NT Ext: no edema BLE Neuro: CN II-XII grossly intact, no asterixis Psych: cooperative ICD10 Worksheet Patient Problems: Problems Problem Status Onset Carcinoma of base of tongue Acute
--- NOTE | 2017-07-30 12:05 | SOAPPROG ---
SOAP Progress Note Assessment/Plan: Assessment: 1.Squamous cell ca base of tongue, hpv testing pending 2. Respiratory failure, required cpap last night Plan:continue to recover from trach, plan on outpt pet/rt consult. G tube, port placement for venous access and planned for chemo therapy 07/29/17 12:27 07/30/17 12:02 Objective: Vital Signs Temp Pulse Resp BP Pulse Ox 99.0 F 80 18 138/61 H 97 07/30/17 08:00 07/30/17 11:38 07/30/17 11:38 07/30/17 11:38 07/30/17 11:38 Microbiology 07/29/17 09:10 - Final Sputum, Induced/Suctioned Laboratory Results 07/30/17 10:55 07/30/17 10:55 07/29/17 07/30/17 07/31/17 05:59 05:59 05:59 Intake Total 552 104 Output Total 250 410 Balance 525 570 ICD10 Worksheet Patient Problems: Problems Problem Status Onset Carcinoma of base of tongue Acute
--- NOTE | 2017-07-30 12:41 | POSTANESTH ---
Post Anesthetic Evaluation Cardiovascular Status: Normal, Stable Respiratory Status: Similar to Pre-op Cond. Level of Consciousness/Mental Status: Can Participate in Eval Pain Control: Adequate, Prn Tx Ordered Nausea/Vomiting Control: Adequate, Prn Tx Ordered Complications Possibly Related to Anesthesia: None Noted
[2017-07-30] MEDS ORDERED: ACETAMINOPHEN 500 MG TAB PO PRN (12:42)
[2017-07-30] MEDS ORDERED: ALBUTEROL 3 ML DEYVIAL IH PRN (12:42)
[2017-07-30] MEDS ORDERED: NALOXONE HCL 0.4 MG/ML INJ IVP PRN ×2 (12:42→18:21)
--- NOTE | 2017-07-30 12:59 | ASMTCMCOM ---
CM Note CM Note Notes: Spoke with Chaplain Shay, who states he gave the family resources with the cancer program here at [facility]. Patient has several procedures scheduled for today including a trach change and a PEG placement. CM will follow. Date Signed: 07/30/2017 12:58 PM Electronically Signed By:Amee Borrego LCSW
[2017-07-30] MEDS ORDERED: BACITRACIN ZINC 14.2 GM OINTTUBE TP ONE (15:53)
[2017-07-30] MEDS ORDERED: BUPIVACAINE 0.5% 30 ML SDV ONE (15:53)
--- NOTE | 2017-07-30 16:34 | PDANEPAE ---
ANE History of Present Illness h/o tongue cancer p/f port placement ANE Past Medical History - Cardiovascular History Hx Hypertension: Yes Hx Arrhythmias: No Hx Chest Pain: No Hx Coronary Artery / Peripheral Vascular Disease: Yes Hx CHF / Valvular Disease: No Hx Palpitations: No Cardiovascular History Comment: stent placed 10 yrs ago - Pulmonary History Hx COPD: No Hx Asthma/Reactive Airway Disease: No Hx Recent Upper Respiratory Infection: No Hx Oxygen in Use at Home: Yes O2 in Use at Home (L/minute): 4L Hx Sleep Apnea: Yes Sleep Apnea Screening Result - Last Documented: Positive Pulmonary History Comment: CORRINE - Neurologic History Hx Cerebrovascular Accident: No Hx Seizures: No Hx Dementia: No - Endocrine History Hx Diabetes: Yes Endocrine History Comment: IDDM - Renal History Hx Renal Disorders: Yes Renal History Comment: RENAL FAILURE - Liver History Hx Hepatic Disorders: No - Neurological & Psychiatric Hx Hx Neurological and Psychiatric Disorders: Yes Neurological / Psychiatric History Comment: TREMOR LEFT ARM - Cancer History Hx Cancer: No - Congenital Disorder History Hx Congenital Disorders: No - GI History Hx Gastrointestinal Disorders: No - Other Health History Other Health History: lump in throat - Chronic Pain History Chronic Pain: No - Surgical History Prior Surgeries: 10yrs ago back surgery. miniscus removed ANE Review of Systems Review of Systems: - Exercise capacity METS (RN): 3 METS ANE Patient History - Allergies Allergies/Adverse Reactions: No Known Allergies Allergy (Verified 07/23/17 14:29) - Home Medications Home medications: home medication list seen and reviewed Home Medications: Allopurinol [Allopurinol 300 MG (RX)] 300 mg PO DAILY 07/23/17 [Last Taken 07/26] Aspirin [Aspirin 81mg (*)] 81 mg PO DAILY 07/23/17 [Last Taken 07/25/17] Pioglitazone HCl [Actos] 30 mg PO DAILY 07/23/17 [Last Taken 07/26/17] amLODIPine BESYLATE [Norvasc 10 mg (*)] 10 mg PO DAILY 07/23/17 [Last Taken ] Hydrochlorothiazide [HCTZ (*)] 25 mg PO DAILY 07/27/17 [Last Taken Unknown] Insulin Detemir [Levemir] 20 unit SQ DAILY 07/27/17 [Last Taken 07/26/17] Losartan Potassium [Cozaar 50 mg (*)] 100 mg PO DAILY 07/27/17 [Last Taken Unknown] Multivitamins [Multivitamin (*)] 1 each PO DAILY 07/27/17 [Last Taken Unknown] - NPO status NPO Since - Liquids (Date): 07/26/17 NPO Since - Liquids (Time): 19:00 NPO Since - Solids (Date): 07/26/17 NPO Since - Solids (Time): 19:00 - Smoking Hx Smoking Status: Never smoked - Family Anes Hx Family Hx Anesthesia Complications: none ANE Labs/Vital Signs - Labs Result Diagrams: 07/30/17 10:55 07/30/17 10:55 - Vital Signs Blood Pressure: 124/67 Heart Rate: 80 Respiratory Rate: 19 O2 Sat (%): 97 Height: 182.88 cm Weight: 120.656 kg ANE Physical Exam - Airway Neck exam: increased neck circumference Mallampati Score: Class 3 Mouth exam: ETT in situ (trach) - Pulmonary Pulmonary: no respiratory distress - Cardiovascular Cardiovascular: regular rate and rhythym - ASA Status ASA Status: IV ANE Anesthesia Plan Anesthesia Plan: general endotracheal anesthesia
[2017-07-30] MEDS ORDERED: fentaNYL 100 MCG/2 ML INJ ONE (17:15)
[2017-07-30] MEDS ORDERED: PHENYLEPHRINE HCL 100 MCG/ML SYR ONE (17:22)
--- NOTE | 2017-07-30 17:39 | POSTANESTH ---
Post Anesthetic Evaluation Cardiovascular Status: Normal, Stable Respiratory Status: Normal, Stable Level of Consciousness/Mental Status: Can Participate in Eval Pain Control: Adequate, Prn Tx Ordered Nausea/Vomiting Control: Adequate, Prn Tx Ordered Complications Possibly Related to Anesthesia: None Noted
[2017-07-30] MEDS ORDERED: PROPOFOL 200 MG/20 ML VIAL ONE (17:47)
[2017-07-30] MEDS ORDERED: ceFAZolin 1 GM VIAL ONE ×2 (17:54→18:01)
[2017-07-30] MEDS: D5W 1/2 NS 1,000 ML IV SCH (23:42)
[2017-07-31] MEDS: HEPARIN 5,000 UNIT/0.5 ML SYR SC SCH ×3 (06:24→22:00)
[2017-07-31] MEDS: INSULIN REGULAR HUMAN 100 UNIT/ML UNIT SC SCH ×4 (08:43→22:00)
--- NOTE | 2017-07-31 09:25 | SOAPPROG ---
SOAP Progress Note Assessment/Plan: Assessment: pt with mild pain some thick trach secretions trach function adequate Plan: 07/28/17 07:40 in crease activity, ambulate. Encourage p.o. Will have rt and med onc see patient once final path returned. Will ask for hospitalist assist with glucose management 07/28/17 07:43 07/31/17 09:22 pt resting quietly trach function good, changed today without difficulty to 7 cuffed portex thinner secretions per nursing port and peg tube placed yesterday still requiring pap stable, will have pt taught trach care and suctioning. Will contact home health for post d/c care Objective: Vital Signs Temp Pulse Resp BP Pulse Ox 37.1 C 81 14 117/64 94 07/31/17 08:00 07/31/17 08:00 07/31/17 08:00 07/31/17 08:00 07/31/17 08:00 Microbiology 07/29/17 09:10 - Final Sputum, Induced/Suctioned Laboratory Results 07/30/17 10:55 07/31/17 06:30 07/30/17 07/31/17 08/01/17 05:59 05:59 05:59 Intake Total 980 Output Total 410 750 Balance 570 -750 ICD10 Worksheet Patient Problems: Problems Problem Status Onset Carcinoma of base of tongue Acute
--- NOTE | 2017-07-31 10:06 | SOAPPROG ---
SOAP Progress Note Assessment/Plan: Assessment: 1) SCC base of tongue 2) Airway obstruction secondary to #1 3) Chronic renal insufficiency Plan: Patient with newly diagnosed SCC left base of tongue. He has undergone an emergent tracheostomy. Pathology confirms a SCC. HPV testing is pending. A G-tube was placed yesterday. He will need imaging studies for complete staging. His fairly severe renal insufficiency precludes the use of IV contrast for a CT. For this reason, I would favor PET scan once he is discharged. Radiation Oncology consult can be done at discharge in the outpatient setting. I discussed treatment in general with him today. If the PET scan confirms no evidence of metastatic disease, then Chemotherapy with XRT would be initial therapy. Our service will continue to follow him intermittently during this hospital stay. He will follow up with Dr. Saunders at discharged for definitive treatment. 07/31/17 09:58 Subjective: Awake. NAD. G-tube placed yesterday. Objective: Vital Signs Temp Pulse Resp BP Pulse Ox 37.1 C 81 14 117/64 94 07/31/17 08:00 07/31/17 08:00 07/31/17 08:00 07/31/17 08:00 07/31/17 08:00 Microbiology 07/29/17 09:10 - Final Sputum, Induced/Suctioned Laboratory Results 07/30/17 10:55 07/31/17 06:30 07/30/17 07/31/17 08/01/17 05:59 05:59 05:59 Intake Total 980 Output Total 410 750 Balance 570 -750 - Time Spent With Patient Time Spent With Patient: 25 minutes Physical Exam - Physical Exam General Appearance: alert, no apparent distress EENT: PERRL/EOMI Respiratory: lungs clear Abdomen: non-tender, soft, other (G-tube in place.) Neuro/Psych: alert, normal mood/affect ICD10 Worksheet Patient Problems: Problems Problem Status Onset Carcinoma of base of tongue Acute
--- NOTE | 2017-07-31 11:18 | PDINTPN ---
Migratory Game [employer]ologist Progress Note Assessment/Plan: Assessment: Tongue Cancer: SCC S/P trach: Tolerating well. Downsized today, able to speak with PMSV. Not taking PO. Acute hypoxemic respiratory failure: Required CPAP overnight. Now on Vapotherm. CXR with basilar infiltrates, has purulent secretions + S. Aureus. Fever: With elevated WBC 07/29. Now afebrile and WBC down. Likely pulmonary source, with hypoxemia, infiltrates, hypoxemia. S. Aureus on sputum Cx. On Levo/ Vanco CKD: Cr up to 3.8, BUN 58. Non-oliguric. Not fluid responsive per NICOM 07/29. DM: BSs low 100s, likely has been high due to being off OHAs HTN: BP normal currently Plan: Continue Levaquin empiric coverage for possible bronchopneumonia, Vanco until sputum S. Aureus sensitivities back. No need to dose today. Follow BSs OOB 3x/day D/C [place], follow UO; bladder scan PRN. Continue SSI. Tx to SDU. 07/31/17 11:19 Subjective: Feels OK, no pain, dyspnea, minimal cough. Not hungry. Objective: Vital Signs Temp Pulse Resp BP Pulse Ox 37.1 C 81 14 117/64 94 07/31/17 08:00 07/31/17 08:00 07/31/17 08:00 07/31/17 08:00 07/31/17 08:00 Microbiology 07/29/17 09:10 - Final Sputum, Induced/Suctioned Laboratory Results 07/30/17 10:55 07/31/17 06:30 07/30/17 07/31/17 08/01/17 05:59 05:59 05:59 Intake Total 980 Output Total 410 750 Balance 570 -750 Physical Exam - Physical Exam General Appearance: alert, no apparent distress EENT: other (trach OK) Neck: normal inspection Respiratory: lungs clear, normal breath sounds Cardiac/Chest: regular rate, rhythm, No edema Abdomen: normal bowel sounds, non-tender, soft Skin: normal color, warm/dry Extremities: normal inspection Neuro/Psych: alert, normal mood/affect, oriented x 3 ICD10 Worksheet Patient Problems: Problems Problem Status Onset Carcinoma of base of tongue Acute
--- NOTE | 2017-07-31 12:13 | SOAPPROG ---
SOAP Progress Note Assessment/Plan: Assessment: 1. Dysphagia with S/P PEG tube placement yesterda; tolerating feedings. 2. SSC of tongue base. Plan: 1. Swallow study today. 2. Nutrition through G-Tube per elderly companion. 3. I will sign off case today, please call me for further GI issues. Leonard Weber MD 07/31/17 12:09 Subjective: CC: Dysphagia. Interval HPI: PEG tube placed yesterday without difficuty. Tolerating TF without difficulty or pain at G-Tube site. Getting swallow study today. Objective: Vital Signs Temp Pulse Resp BP Pulse Ox 37.1 C 81 14 117/64 94 07/31/17 08:00 07/31/17 08:00 07/31/17 08:00 07/31/17 08:00 07/31/17 08:00 Microbiology 07/29/17 09:10 - Final Sputum, Induced/Suctioned Laboratory Results 07/30/17 10:55 07/31/17 06:30 07/30/17 07/31/17 08/01/17 05:59 05:59 05:59 Intake Total 980 Output Total 410 750 Balance 570 -750 Physical Exam - Physical Exam General Appearance: WD/WN, alert, no apparent distress Respiratory: lungs clear, normal breath sounds Cardiac/Chest: regular rate, rhythm Abdomen: normal bowel sounds, non-tender, soft, other (G-Tube site clean and without erythema of tenderness.) Skin: normal color, warm/dry Neuro/Psych: alert, normal mood/affect, oriented x 3 ICD10 Worksheet Patient Problems: Problems Problem Status Onset Carcinoma of base of tongue Acute
[2017-07-31] MEDS ORDERED: HYDROCOD/APAP 7.5/325 IN 15ML UDCUP ONE (13:06)
--- NOTE | 2017-07-31 14:08 | SOAPPROG ---
SOAP Progress Note Assessment/Plan: Assessment/Plan: DALY on CKD 4: pt with baseline diabetic nephropathy with baseline Cr of 2.5-3.0 , likely has ATN. Cr seems to have plateaued at 3.8 today and now having improving UOP. Nonoliguric, lytes ok. - No need for HD. - Will continue to monitor. - Ok to give IVFs if needed. - Holding ARB and diuretics. - Avoid hypotension and nephrotoxins. HTN: controlled on current meds, will monitor. FILIBERTO: phos 3.5, no need for phos binder, will continue to monitor. Anemia: will continue to monitor, no need for inpt epo at this time. Subjective: No acute events overnight. Pt still has pain at trach site but breathing feels better today, still on BiPAP. He has been up and around. He has had more UOP now, already had 750ml today. Objective: Vital Signs Temp Pulse Resp BP Pulse Ox 37.1 C 81 14 117/64 94 07/31/17 08:00 07/31/17 08:00 07/31/17 08:00 07/31/17 08:00 07/31/17 08:00 Microbiology 07/29/17 09:10 - Final Sputum, Induced/Suctioned Laboratory Results 07/30/17 10:55 07/31/17 06:30 07/30/17 07/31/17 08/01/17 05:59 05:59 05:59 Intake Total 980 Output Total 410 750 Balance 570 -750 General: alert and oriented, no acute distress Eyes: EOMI, PERRL OP: Clear CV: RRR Resp: CTA bilat, trached and on bipap Abd: Soft, NT Ext: trace edema BLE Neuro: CN II-XII Grossly intact, no asterixis Psych: cooperative ICD10 Worksheet Patient Problems: Problems Problem Status Onset Carcinoma of base of tongue Acute
--- NOTE | 2017-07-31 15:23 | ASMTCMCOM ---
CM Note CM Note Notes: PT is recommending inpt rehab (no order in yet) and OT recommending SNF at d/c. Pt currently with trach collar and Bipap trials. He has a new PEG with Jevity feedings and a Hill. He may transfer to [facility]/Surg soon. CM will continue to follow. Date Signed: 07/31/2017 03:22 PM Electronically Signed By:CALIN Schroeder
--- NOTE | 2017-07-31 16:36 | GOP ---
[f rep st] OPERATIVE REPORT DATE OF OPERATION: 07/30/2017 SURGEON: Didier Farrar MD ANESTHESIOLOGIST: Florencio Naqvi MD PREOPERATIVE DIAGNOSIS: Tongue cancer. POSTOPERATIVE DIAGNOSIS: Tongue cancer. PROCEDURE PERFORMED: Left subclavian port placement with fluoroscopic guidance. FINDINGS: Patient was found to have good position and good flow of the catheter. DESCRIPTION OF PROCEDURE: Patient was taken to the the operating room where he received satisfactory general endotracheal anesthesia by Dr. Naqvi, and was placed in the supine position and prepped a nd draped in usual sterile fashion. Difficult to maintain a sterile field with his tracheostomy. Th is was accomplished with an Ioban dressing. A stick was made in the left subclavian vein. A guidewi re was introduced. Dilator was eventually passed over the guidewire. Position had been confirmed wi th fluoroscopy. A subcu pocket was made in the 2nd intercostal space. Port tubing was passed from t hat pocket to the subclavian insertion site, trimmed to the appropriate length measured by fluoroscop y, and introduced through the introducer sheath and dilator system into the right atrium. Good backf low was achieved. The catheter was flushed with heparin and saline. Port was secured to the fascia with 3-0 Vicryl. Pocket was closed with 3-0 Vicryl for the subcu and a 4-0 Monocryl subcuticular sti tch for the skin. Entrance site was also closed with 4-0 Monocryl subcuticular suture, and the wound s were dressed with Dermabond. He tolerated the procedure quite well. He was taken to the recovery room in good condition. There were no complications. Blood loss was negligible. /[id number]/MODL
[2017-08-01] MEDS: D5W 1/2 NS 1,000 ML IV SCH (05:02)
[2017-08-01] MEDS: HEPARIN 5,000 UNIT/0.5 ML SYR SC SCH ×3 (05:04→22:09)
--- NOTE | 2017-08-01 08:10 | SOAPPROG ---
SOAP Progress Note Assessment/Plan: Assessment: pt with mild pain some thick trach secretions trach function adequate Plan: 07/28/17 07:40 in crease activity, ambulate. Encourage p.o. Will have rt and med onc see patient once final path returned. Will ask for hospitalist assist with glucose management 07/28/17 07:43 07/31/17 09:22 pt resting quietly trach function good, changed today without difficulty to 7 cuffed portex thinner secretions per nursing port and peg tube placed yesterday still requiring pap stable, will have pt taught trach care and suctioning. Will contact home health for post d/c care 08/01/17 08:07 pt with c/o incisional pain at trach/port peg site AVss trrach function excellent. wbc 5.7 this am H and H low? cause of anemia. now on sdu status. Would hope to transfer to med surg in next day or two stable post trach day # 5 Objective: Vital Signs Temp Pulse Resp BP Pulse Ox 37.2 C 80 17 154/70 H 95 08/01/17 00:00 08/01/17 04:00 08/01/17 04:00 08/01/17 04:00 08/01/17 04:00 Microbiology 07/29/17 09:10 - Final Sputum, Induced/Suctioned Laboratory Results 08/01/17 04:35 08/01/17 04:35 07/31/17 08/01/17 08/02/17 05:59 05:59 05:59 Intake Total 3363 Output Total 750 300 Balance -750 3063 ICD10 Worksheet Patient Problems: Problems Problem Status Onset Carcinoma of base of tongue Acute
[2017-08-01] MEDS: INSULIN REGULAR HUMAN 100 UNIT/ML UNIT SC SCH ×5 (08:45→22:18)
[2017-08-01] MEDS: MULTIVIT/MINERAL/FERR GLUC 15 ML UDL TUBE SCH (10:16)
[2017-08-01] MEDS: ALLOPURINOL 300 MG TAB TUBE SCH (10:16)
[2017-08-01] MEDS: PIOGLITAZONE HCL 15 MG TAB TUBE SCH (10:55)
--- NOTE | 2017-08-01 11:29 | PDINTPN ---
Service Tech/Welder Progress Note Assessment/Plan: Assessment: Tongue Cancer: SCC S/P trach: Tolerating well. Downsized today, able to speak with PMSV. Not taking PO. Acute hypoxemic respiratory failure: Required CPAP overnight. Now on Vapotherm. CXR with basilar infiltrates, has purulent secretions + MSSA Fever: With elevated WBC 07/29. Now afebrile and WBC down. Likely pulmonary source, with hypoxemia, infiltrates, hypoxemia. MSSA sputum Cx. On Levo/Vanco CKD: Cr down to 3.4, BUN 62. Non-oliguric. DM: BSs 200s, despite starting Actos yesterday. On TFs may be getting more calories than he has in a while. HTN: BP now climbing up Hx CORRINE: 20years. On CPAP. Has been on CPAP/BiPAP at night here. Plan: Change Levo/Vanco to Augmentin. Follow BSs. Will see if TF can be changed from Jevity to a formula that will not promote hyperglycemia. Will add Lantus 10 SQ HS (1/2 his normal dose). Continue Actos, SSI. OOB 3x/day Resume HCTZ, Cozaar. OK to not use CPAP at night as long as trach is uncapped or PMSV and he doesn't have apnea clinically. Tx to Onc. 08/01/17 11:35 Subjective: Feels OK, didn't sleep well due to interruptions at night. Has some pain and cough with swallowing, not taking much PO. Objective: Vital Signs Temp Pulse Resp BP Pulse Ox 37.2 C 80 17 154/70 H 97 08/01/17 00:00 08/01/17 04:00 08/01/17 04:00 08/01/17 04:00 08/01/17 08:35 Microbiology 07/29/17 09:10 - Final Sputum, Induced/Suctioned Sputum Culture - Final Staphylococcus Aureus Laboratory Results 08/01/17 04:35 08/01/17 04:35 07/31/17 08/01/17 08/02/17 05:59 05:59 05:59 Intake Total 3363 Output Total 750 300 Balance -750 3063 Microbiology 07/29/17 09:10 Sputum, Induced/Suctioned - Final 07/29/17 09:10 Sputum, Induced/Suctioned Sputum Culture - Final Staphylococcus Aureus Physical Exam - Physical Exam General Appearance: alert, no apparent distress EENT: other (trach OK) Neck: normal inspection Respiratory: lungs clear Cardiac/Chest: regular rate, rhythm, edema Abdomen: normal bowel sounds, non-tender Skin: normal color, warm/dry Extremities: normal inspection Neuro/Psych: alert, normal mood/affect, oriented x 3 ICD10 Worksheet Patient Problems: Problems Problem Status Onset Carcinoma of base of tongue Acute
[2017-08-01] MEDS: AMOXICILLIN/CLAVULANATE POT 875/125 MG TAB PO SCH ×2 (12:24→22:13)
--- NOTE | 2017-08-01 13:05 | WOCRNPDOC ---
WOCRN Advanced Assessment Note - Skin Integrity Problem, Advanced Assess Tracheostomy Site Dressing Type: Other Other Dressing Type: drain sponge Integumentary Issue Intervention: Visualized Under Dressing Oralia Wound Tissue: Blanching, Erythema Oralia Wound Swelling: Mild Skin Integrity Problem Comment: Blanching erythema throughout skin surrounding trach, w/ 4 pinpoint scabs (2 on the right and 2 on the left) where sutures were previously. Patient currently on humidified O2, which is contributing to excess moisture on the skin. Will have nursing apply a Polymem foam dressing for absorption and to help protect from pressure from cuff. Wound RN will re- assess on Thursday 08/03.
--- NOTE | 2017-08-01 15:33 | SOAPPROG ---
SOAP Progress Note Assessment/Plan: Assessment/Plan: DALY on CKD 4: pt with baseline diabetic nephropathy with baseline Cr of 2.5-3.0 , likely has ATN. Cr seems to have plateaued at 3.8 yesterday and today is down to 3.4. Nonoliguric, lytes ok. - No need for HD. - Will continue to monitor. - Ok to give IVFs if needed. - Avoid hypotension and nephrotoxins. HTN: ok on current meds, will monitor. FILIBERTO: phos 3.2, no need for phos binder, will continue to monitor. Anemia: will continue to monitor, no need for inpt epo at this time. Subjective: No acute events overnight. Pt states he is breathing comfortably, notes that he still has some pain at trach site but not as bad. He is sitting up in chair. He has no other complaints today. Objective: Vital Signs Temp Pulse Resp BP Pulse Ox 37.2 C 94 17 148/72 H 96 08/01/17 12:00 08/01/17 12:00 08/01/17 12:00 08/01/17 12:00 08/01/17 12:00 Microbiology 07/29/17 09:10 - Final Sputum, Induced/Suctioned Sputum Culture - Final Staphylococcus Aureus Laboratory Results 08/01/17 04:35 08/01/17 04:35 07/31/17 08/01/17 08/02/17 05:59 05:59 05:59 Intake Total 3363 Output Total 750 300 Balance -750 3063 General: alert and oriented, no acute distress Eyes; EOMI, PERRL OP: Clear CV: RRR Resp: trached, CTA bilat Abd: Soft, NT Ext: trace edema BLE Neuro: CN II-XII Grossly intact, no asterixis Psych: cooperative, appropriate mood and affect ICD10 Worksheet Patient Problems: Problems Problem Status Onset Carcinoma of base of tongue Acute
[2017-08-01] MEDS ORDERED: INSULIN GLARGINE 100 UNITS/ML UNIT SC SCH (21:00)
[2017-08-02] MEDS: HEPARIN 5,000 UNIT/0.5 ML SYR SC SCH ×3 (05:47→21:24)
[2017-08-02] MEDS: D5W 1/2 NS 1,000 ML IV SCH (05:47)
[2017-08-02] MEDS: INSULIN REGULAR HUMAN 100 UNIT/ML UNIT SC SCH ×4 (09:17→21:23)
--- NOTE | 2017-08-02 09:29 | SOAPPROG ---
SOAP Progress Note Assessment/Plan: Assessment: 71 year old male s/p direct laryngoscopy, base of tongue biopsy, and placement of tracheostomy by Dr. Alcaraz for BOT SCC. He is doing well. Trach secure, changed to 7 cuffed portex yesterday. We readjusted and placed obturator today. Port a peg tube placed yesterday. Still requiring PAP. Some incisional pain at peg site. Plan: Will have rt and med onc see patient once final path returned. Transfer to MED/ SURG for hospitalist care. Will need assistance with glucose management. He will continue to work with respiratory for trach care. Will need post d/c care for trach. We will plan to follow during admission and post op. *Patient was seen by Dr. Alcaraz* Objective: Vital Signs Temp Pulse Resp BP Pulse Ox 36.6 C 90 20 144/81 H 96 08/02/17 07:10 08/02/17 07:10 08/02/17 07:10 08/02/17 07:10 08/02/17 07:10 Microbiology 07/29/17 09:10 - Final Sputum, Induced/Suctioned Sputum Culture - Final Staphylococcus Aureus Laboratory Results 08/01/17 04:35 08/01/17 04:35 08/01/17 08/02/17 08/03/17 05:59 05:59 05:59 Intake Total 1363 2803 Output Total 300 650 Balance 3063 823 ICD10 Worksheet Patient Problems: Problems Problem Status Onset Carcinoma of base of tongue Acute - ICD10 Problem Qualifiers (1) Carcinoma of base of tongue
[2017-08-02] MEDS: PIOGLITAZONE HCL 15 MG TAB TUBE SCH (10:40)
[2017-08-02] MEDS: ALLOPURINOL 300 MG TAB TUBE SCH (10:40)
[2017-08-02] MEDS: AMOXICILLIN/CLAVULANATE POT 875/125 MG TAB PO SCH ×2 (10:40→21:24)
[2017-08-02] MEDS: MULTIVIT/MINERAL/FERR GLUC 15 ML UDL TUBE SCH (10:40)
[2017-08-02] MEDS: HYDROCOD/APAP 7.5/325 IN 15ML UDCUP TUBE PRN ×2 (10:51→21:22)
--- NOTE | 2017-08-02 12:11 | SOAPPROG ---
SOAP Progress Note Assessment/Plan: Assessment: Assessment: 1) SCC base of tongue 2) Airway obstruction secondary to #1- trach tube changed today. Patient has pain associated with this. 3) Chronic renal insufficiency - Cr slightly better this AM (3.4) but still problematic. 4) Constipation exacerbated by pain meds. Plan: Patient with newly diagnosed SCC left base of tongue. He has undergone an emergent tracheostomy. Pathology confirms a SCC. HPV testing is pending. He has a G-tube in place He will need imaging studies for complete staging. His fairly severe renal insufficiency precludes the use of IV contrast for a CT. For this reason, I would favor PET scan once he is discharged. Radiation Oncology consult can be done at discharge in the outpatient setting. I discussed treatment in general with him today. If the PET scan confirms no evidence of metastatic disease, then Chemotherapy with XRT would be initial therapy. He needs a laxative - I ordered MOM through G-Tube. Our service will continue to follow him intermittently during this hospitalization and as an outpatient. Subjective: "I don't feel good". C/O pain in trach and UE swelling. Constipated. Objective: Vital Signs Temp Pulse Resp BP Pulse Ox 36.6 C 104 H 18 144/81 H 94 08/02/17 07:10 08/02/17 10:05 08/02/17 10:05 08/02/17 07:10 08/02/17 10:05 Microbiology 07/29/17 09:10 - Final Sputum, Induced/Suctioned Sputum Culture - Final Staphylococcus Aureus Laboratory Results 08/01/17 04:35 08/01/17 04:35 07/31/17 08/01/17 08/02/17 23:59 23:59 23:59 Intake Total 1724 1639 1473 Output Total 600 400 650 Balance 1124 1239 823 Physical Exam - Physical Exam General Appearance: mild distress Respiratory: No crackles, No rales, No rhonchi Cardiac/Chest: regular rate, rhythm Extremities: swelling (symmetric upper extremity) Neuro/Psych: depressed affect ICD10 Worksheet Patient Problems: Problems Problem Status Onset Carcinoma of base of tongue Acute
--- NOTE | 2017-08-02 13:42 | SOAPPROG ---
SOAP Progress Note Assessment/Plan: Assessment/Plan: DALY on CKD 4: pt with baseline diabetic nephropathy with baseline Cr of 2.5-3.0 , likely has ATN. Cr seems to have plateaued at 3.8 yesterday and today is down to 3.0. Nonoliguric, lytes ok. - No need for HD. - Will continue to monitor. - Avoid hypotension and nephrotoxins. HTN: ok on current meds, will monitor. FILIBERTO: phos 3.2, no need for phos binder, will continue to monitor. Anemia: will continue to monitor, no need for inpt epo at this time. Subjective: No acute events overnight. Pt has some swelling in legs and some cough but doing well overall, not having much pain. Objective: Vital Signs Temp Pulse Resp BP Pulse Ox 36.9 C 88 18 126/69 H 91 L 08/02/17 12:00 08/02/17 12:00 08/02/17 12:00 08/02/17 12:00 08/02/17 12:00 Microbiology 07/29/17 09:10 - Final Sputum, Induced/Suctioned Sputum Culture - Final Staphylococcus Aureus Laboratory Results 08/01/17 04:35 08/02/17 12:15 08/01/17 08/02/17 08/03/17 05:59 05:59 05:59 Intake Total 3363 1473 Output Total 300 650 400 Balance 3063 823 -400 General: alert and oriented, no acute distress Eyes: EOMI, PERRL OP: Clear CV: RRR Resp: nonlabored respirations, trached Abd: Soft, NT/ND Ext: +1 edema all extremities Neuro: CN II-XII Grossly intact Psych: cooperative, appropriate mood and affect ICD10 Worksheet Patient Problems: Problems Problem Status Onset Carcinoma of base of tongue Acute
[2017-08-02] MEDS ORDERED: MAGNESIUM HYDROXIDE 30 ML UDCUP PO PRN (14:52)
[2017-08-02] MEDS ORDERED: MAGNESIUM HYDROXIDE 30 ML UDCUP TUBE PRN (15:00)
--- NOTE | 2017-08-02 16:40 | PDHOSCONS ---
History and Physical - Chief Complaint Acute hoarseness - History of Present Illness Primary care provider: Dr. Meyers Primary machine tailer: Dr. Scott Garland HPI: 71-year-old male presenting with acute hoarseness and associated dysphagia and weight loss characterized as 32 lb, with onset of symptoms 5-6 weeks ago and duration persistent worsening thereafter. 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 Patient was originally seen in the office on 07/21/[address] Alcaraz, and then procedures were scheduled thereafter. He underwent tracheostomy placement on 07/27, PEG placement on 07/30, port placement on 07/31. He is currently recovering postprocedure early and the hospitalist service was consulted to consider assuming primary coverage of the patient and addressing his numerous medical issues as well as discharge planning. History Information - Allergies/Home Medication List Allergies/Adverse Reactions: No Known Allergies Allergy (Verified 07/23/17 14:29) Home Medications: Allopurinol [Allopurinol 300 MG (RX)] 300 mg PO DAILY 07/23/17 [Last Taken 07/26] Aspirin [Aspirin 81mg (*)] 81 mg PO DAILY 07/23/17 [Last Taken 07/25/17] Pioglitazone HCl [Actos] 30 mg PO DAILY 07/23/17 [Last Taken 07/26/17] amLODIPine BESYLATE [Norvasc 10 mg (*)] 10 mg PO DAILY 07/23/17 [Last Taken ] Hydrochlorothiazide [HCTZ (*)] 25 mg PO DAILY 07/27/17 [Last Taken Unknown] Insulin Detemir [Levemir] 20 unit SQ DAILY 07/27/17 [Last Taken 07/26/17] Losartan Potassium [Cozaar 50 mg (*)] 100 mg PO DAILY 07/27/17 [Last Taken Unknown] Multivitamins [Multivitamin (*)] 1 each PO DAILY 07/27/17 [Last Taken Unknown] I have personally reviewed and updated: family history, medical history, social history, surgical history - Past Medical History Additional medical history: Chronic kidney disease stage 4 with baseline creatinine 2.5-3.0. Anemia of chronic kidney disease. Diabetes mellitus type 2 with nephropathy. Hypertension. Obstructive sleep apnea. 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 07/30 PEG placement. 07/31 port placement - Family History Additional family history: No family history of head and neck cancers - Social History Smoking Status: Never smoked Alcohol Use: Occasionally Drug Use: None Review of Systems Review of Systems: ROS: 10pt was reviewed & negative except for what was stated in HPI & below Constitutional: Reports: weight loss EENMT: Reports: other (Difficulty swallowing solids and liquids, hoarseness) Physical Exam Physical Exam: Temp Pulse Resp BP Pulse Ox 36.8 C 84 19 147/88 H 93 08/02/17 16:10 08/02/17 16:10 08/02/17 16:10 08/02/17 16:10 08/02/17 16:10 O2 (L/minute) 2 FIO2 (%) 40 Constitutional: no apparent distress, not in pain, obese, No uncomfortable Eyes: PERRL, anicteric sclera, EOMI Ears, Nose, Mouth, Throat: other (Tracheostomy in place, moist mucous membranes) Cardiovascular: edema (Diffuse trace edema in upper extremities and lower extremities), No systolic murmur (Distant heart sounds), No irregularly irregular, No tachycardia Respiratory: reduced air movement (Bilateral bases), inspiratory crackles ( Bilateral bases), No expiratory wheeze, No bronchial breath sounds Gastrointestinal: normoactive bowel sounds, soft, non-tender abdomen, no palpable masses, other (Peg tube in place) Skin: No erythema (Around the PEG site), No rash Neurologic: sensation intact bilaterally, No weakness, No facial droop Psychiatric: interacting appropriately, not anxious, not encephalopathic, thought process linear Lab Data & Imaging Review 08/01/17 04:35 08/02/17 12:15 WBC 5.70 10^3/uL (3.80-9.50) 08/01/17 04:35 RBC 2.63 10^6/uL (4.40-6.38) L 08/01/17 04:35 Hgb 8.2 g/dL (13.7-17.5) L 08/01/17 04:35 Hct 25.3 % (40.0-51.0) L 08/01/17 04:35 MCV 96.2 fL (81.5-99.8) 08/01/17 04:35 MCH 31.2 pg (27.9-34.1) 08/01/17 04:35 MCHC 32.4 g/dL (32.4-36.7) 08/01/17 04:35 RDW 13.2 % (11.5-15.2) 08/01/17 04:35 Plt Count 121 10^3/uL (150-400) L 08/01/17 04:35 MPV 12.4 fL (8.7-11.7) H 07/30/17 10:55 Neut % (Auto) 82.3 % (39.3-74.2) H 07/30/17 10:55 Lymph % (Auto) 8.9 % (15.0-45.0) L 07/30/17 10:55 [place] % (Auto) 7.0 % (4.5-13.0) 07/30/17 10:55 Eos % (Auto) 0.5 % (0.6-7.6) L 07/30/17 10:55 Baso % (Auto) 0.1 % (0.3-1.7) L 07/30/17 10:55 Nucleat RBC Rel Count 0.0 % (0.0-0.2) 07/30/17 10:55 Absolute Neuts (auto) 8.89 10^3/uL (1.70-6.50) H 07/30/17 10:55 Absolute Lymphs (auto) 0.96 10^3/uL (1.00-3.00) L 07/30/17 10:55 Absolute Monos (auto) 0.75 10^3/uL (0.30-0.80) 07/30/17 10:55 Absolute Eos (auto) 0.05 10^3/uL (0.03-0.40) 07/30/17 10:55 Absolute Basos (auto) 0.01 10^3/uL (0.02-0.10) L 07/30/17 10:55 Absolute Nucleated RBC 0.00 10^3/uL (0-0.01) 07/30/17 10:55 Immature Gran % 1.2 % (0.0-1.1) H 07/30/17 10:55 Immature Gran # 0.13 10^3/uL (0.00-0.10) H 07/30/17 10:55 Puncture Site VENOUS 07/31/17 06:30 Patient Temperature 37.0 DEGREES 07/31/17 06:30 pCO2 40 mmHg (34-38) H 07/29/17 04:10 pO2 53 mmHg (65-75) L 07/29/17 04:10 Total CO2 23 mEq/L (23-27) 07/29/17 04:10 ABG pH 7.35 (7.35-7.45) 07/29/17 04:10 ABG PO2/FiO2 Ratio 53 RATIO 07/29/17 04:10 ABG HCO3 22 mEq/L (22-26) 07/29/17 04:10 ABG O2 Saturation 86 % (92-95) L 07/29/17 04:10 ABG Base Excess -3.1 mEq/L (-2.5-2.5) L 07/29/17 04:10 VBG pH 7.32 (7.31-7.42) 07/31/17 06:30 VBG HCO3 21 mEQ/L (22-26) L 07/31/17 06:30 VBG Total CO2 22 mEq/L (23-27) L 07/31/17 06:30 VBG O2 Saturation 99 % (65-75) H 07/31/17 06:30 VBG Base Excess -4.7 mEq/L (-2.5-2.5) L 07/31/17 06:30 Mixed VBG pCO2 41 mmHg (40-44) 07/31/17 06:30 Mixed VBG pO2 161 mmHg (35-40) H 07/31/17 06:30 Total O2 Concentration 40.0 LITERS 07/29/17 04:10 O2 Concentration % 100 % (0-100) 07/29/17 04:10 Sodium 143 mEq/L (135-145) 08/01/17 04:35 Potassium 4.1 mEq/L (3.5-5.2) 08/01/17 04:35 Chloride 110 mEq/L (97-110) 08/01/17 04:35 Carbon Dioxide 23 mEq/l (22-31) 08/01/17 04:35 Anion Gap 10 mEq/L (8-16) 08/01/17 04:35 BUN 60 mg/dL (7-23) H 08/02/17 12:15 Creatinine 3.0 mg/dL (0.7-1.3) H 08/02/17 12:15 Estimated GFR 21 08/02/17 12:15 Glucose 258 mg/dL (70-100) H 08/01/17 04:35 POC Glucose 289 mg/dL (70-100) H 08/02/17 12:28 Calcium 7.9 mg/dL (8.5-10.4) L 08/01/17 04:35 Phosphorus 3.2 mg/dL (2.5-4.5) 08/01/17 04:35 Magnesium 1.6 mg/dL (1.6-2.3) 07/31/17 06:00 Total Bilirubin 0.4 mg/dL (0.1-1.4) 08/01/17 04:35 AST 22 IU/L (17-59) 08/01/17 04:35 ALT 30 IU/L (21-72) 08/01/17 04:35 Alkaline Phosphatase 104 IU/L (38-126) 08/01/17 04:35 NT-Pro-B Natriuret Pep 1650 pg/mL (0-125) H 07/30/17 07:45 Total Protein 5.0 g/dL (6.3-8.2) L 08/01/17 04:35 Albumin 2.3 g/dL (3.5-5.0) L 08/01/17 04:35 Specimen Hemolysis 212 07/30/17 07:45 Urine Color YELLOW 07/29/17 18:15 Urine Appearance MODERATELY TURBID 07/29/17 18:15 Urine pH 5.0 (5.0-7.5) 07/29/17 18:15 Ur Specific Quail 1.013 (1.002-1.030) 07/29/17 18:15 Urine Protein 3+ (NEGATIVE) H 07/29/17 18:15 Urine Ketones NEGATIVE (NEGATIVE) 07/29/17 18:15 Urine Blood 1+ (NEGATIVE) H 07/29/17 18:15 Urine Nitrate NEGATIVE (NEGATIVE) 07/29/17 18:15 Urine Bilirubin NEGATIVE (NEGATIVE) 07/29/17 18:15 Urine Urobilinogen NEGATIVE EU (0.2-1.0) 07/29/17 18:15 Ur Leukocyte Esterase NEGATIVE (NEGATIVE) 07/29/17 18:15 Urine RBC 1-3 /hpf (0-3) 07/29/17 18:15 Urine WBC 1-3 /hpf (0-3) 07/29/17 18:15 Ur Epithelial Cells TRACE /lpf (NONE-1+) 07/29/17 18:15 Hyaline Casts 5-15 /lpf (0-1) 07/29/17 18:15 Urine Mucus TRACE /lpf (NONE-1+) 07/29/17 18:15 Ur Random Creatinine 156.8 mg/dL 07/29/17 18:15 Ur Random Sodium 33 mEq/L (30-90) 07/29/17 18:15 Urine Glucose 1+ (NEGATIVE) H 07/29/17 18:15 Random Vancomycin 13.8 mcg/mL (0.0-40.0) 07/31/17 09:00 Visualized and Interpreted Chest x-ray results: Yes Chest X-Ray results: other (Atelectasis in the right base) Assessment & Plan Assessment: 71-year-old male presents with 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 Likely squamous cell carcinoma of the tongue. Status post airway stabilization with tracheostomy, dietary stabilization with PEG tube, preparations for chemotherapy with port placement -reviewed outside records including clinic note by Dr. Alcaraz from 07/21/2017, performing laryngoscopy and noting prolapsing lesion at the tongue base into the airway, blocking visualization, requiring scheduled surgical airway stabilization -discussed with Dr. Berman, consultation appreciated, he has recommended outpatient PET scan, which will determine the specific chemotherapy regiment and they will arrange outpatient radiation oncology consultation -pain management as needed -discussed with Deisy, ENT provider, they will continue to consult the patient's daily care -Passy Ilene valve -ongoing respiratory therapy assistance with trach and trach care 2. Acute tubular necrosis. Patient experienced ATN with peak creatinine 3.8, most likely hemodynamically mediated in the setting of chronic kidney disease stage 4 with baseline creatinine 2.5-3.0 -appreciate ongoing nephrology consultation -continue monitor creatinine level and urine output 3. Likely aspiration pneumonia. Seen by Pulmonary, status post IV antibiotics including vancomycin and levofloxacin, sputum culture from 07/29 demonstrating MSSA -07/31 chest x-ray demonstrating improvement -adjusted to oral Augmentin, continue therapy via PEG 4. Anemia of chronic kidney disease. Continue monitor hemoglobin level 5. Diabetes mellitus type 2 with hyperglycemia, uncontrolled. Most likely secondary to a combination of holding the patient's previous oral agent as well as stressed induced hyperglycemia postprocedure early -reviewed outside records including most recent outpatient hemoglobin A1c level of 7.8 from 2010, his baseline ranges between 7 and 8 % -initiated on Lantus 10 units last night, increased to 15 units tonight -continue on insulin sliding scale -continue on Actos via PEG -dietary consultation to consider alternative methods to Jevity to reduce patient's hyperglycemia 6. Acute atelectasis. Encourage incentive spirometer 7. Hypertension. Chronic, reinitiate patient's amlodipine tomorrow a.m. Diet. Peg tube Code. Full Prophylaxis. High risk patient, heparin subcu Disposition. Anticipated discharge uncertain, discussed with case management, we are considering detention facility versus inpatient rehab, order placed , discussed with patient, he is amenable to either, depending on the most appropriate setting in his care needs. High-level of medical complexity, with high risk for worsening morbidity and/or mortality secondary to the issues outlined above.
[2017-08-02] MEDS: ONDANSETRON 4 MG/2 ML VIAL IVP PRN (17:56)
[2017-08-02] MEDS: SENNOSIDES 17.6 MG/10 ML UDL TUBE SCH ×2 (17:56→22:36)
[2017-08-02] MEDS: LACTULOSE 20 GM/30 ML UDCUP TUBE PRN (17:56)
[2017-08-02] MEDS: INSULIN GLARGINE 100 UNITS/ML UNIT SC SCH (21:24)
[2017-08-03] MEDS: LACTULOSE 20 GM/30 ML UDCUP TUBE PRN (04:12)
[2017-08-03] MEDS: HEPARIN 5,000 UNIT/0.5 ML SYR SC SCH ×3 (05:34→23:09)
--- NOTE | 2017-08-03 10:06 | SOAPPROG ---
SOAP Progress Note Assessment/Plan: Assessment: 71 year old male s/p tracheostomy 7 days ago. Doing well. Able to expel secretions better today per respiratory therapy. - Appreciate hospital medicine - Will continue to follow along 08/03/17 10:05 Subjective: Transferred to hospital medicine service yesterday. Patient says he is doing well today. Objective: Vital Signs Temp Pulse Resp BP Pulse Ox 36.9 C 96 20 166/75 H 93 08/03/17 09:59 08/03/17 09:59 08/03/17 09:59 08/03/17 09:59 08/03/17 09:59 Laboratory Results 08/03/17 04:25 08/03/17 04:25 08/02/17 08/03/17 08/04/17 05:59 05:59 05:59 Intake Total 1473 1732 Output Total 650 400 Balance 823 1332 Trach function excellent Using passy manan valve adequately ICD10 Worksheet Patient Problems: Problems Problem Status Onset Carcinoma of base of tongue Acute
[2017-08-03] MEDS: MULTIVIT/MINERAL/FERR GLUC 15 ML UDL TUBE SCH (12:00)
[2017-08-03] MEDS: AMOXICILLIN/CLAVULANATE POT 875/125 MG TAB PO SCH ×2 (12:00→23:08)
[2017-08-03] MEDS: PIOGLITAZONE HCL 15 MG TAB TUBE SCH (12:00)
[2017-08-03] MEDS: SENNOSIDES 17.6 MG/10 ML UDL TUBE SCH ×2 (12:01→23:09)
[2017-08-03] MEDS: ALLOPURINOL 300 MG TAB TUBE SCH (12:07)
[2017-08-03] MEDS: INSULIN REGULAR HUMAN 100 UNIT/ML UNIT SC SCH ×4 (12:40→23:15)
--- NOTE | 2017-08-03 12:58 | SOAPPROG ---
SOAP Progress Note Assessment/Plan: Assessment: Assessment: 1) SCC base of tongue 2) Airway obstruction secondary to #1- trach tube changed today. Patient has pain associated with this. 3) Chronic renal insufficiency - Cr slightly better this AM (3.0-3.2) but still problematic. 4) Constipation exacerbated by pain meds. His pain is much better today. I think we need to move ahead with further treatment planning for his SQCCA tongue. I will request an XRT consultation. Patient is being evaluated for rehab. He still needs a PET CT. Plan: - Request XRT evaluation - He will need combined modality chemo+XRT - He will require rehab/snf stay for strengthening. Subjective: Having a better day. Less pain. Objective: Vital Signs Temp Pulse Resp BP Pulse Ox 36.7 C 100 18 149/77 H 94 08/03/17 12:00 08/03/17 12:00 08/03/17 12:00 08/03/17 12:00 08/03/17 12:00 Laboratory Results 08/03/17 04:25 08/03/17 04:25 08/01/17 08/02/17 08/03/17 23:59 23:59 23:59 Intake Total 1639 2246 959 Output Total 400 650 Balance 1239 1596 959 Physical Exam - Physical Exam General Appearance: alert, mild distress Respiratory: wheezing (bilateral, expiratory) Cardiac/Chest: regular rate, rhythm ICD10 Worksheet Patient Problems: Problems Problem Status Onset Carcinoma of base of tongue Acute
--- NOTE | 2017-08-03 13:40 | SOAPPROG ---
SOAP Progress Note Assessment/Plan: Assessment: 1. crf: creat near typical b/l of 2.5-3, may be sl vol contracted but would not give addl ivf at this point as I suspect this will work itself out as he recovers from surgery. Very likely has element of atn that should recover with time. Would cont to hold arb. 2. htn: reasonable control, would tolerate mild htn in short term while awaiting return to b/l creat. Hold arb as above. 3. SCCa: staging/treatment plan in process Plan: 08/03/17 13:36 Subjective: Up in chair, tube feeds infusing. Overall feeling better. Objective: Vital Signs Temp Pulse Resp BP Pulse Ox 36.7 C 108 H 19 149/77 H 96 08/03/17 12:00 08/03/17 13:25 08/03/17 13:25 08/03/17 12:00 08/03/17 13:25 Laboratory Results 08/03/17 04:25 08/03/17 04:25 08/02/17 08/03/17 08/04/17 05:59 05:59 05:59 Intake Total 1473 1732 Output Total 650 400 Balance 823 1332 Physical Exam - Physical Exam General Appearance: no apparent distress Respiratory: decreased breath sounds Cardiac/Chest: regular rate, rhythm Abdomen: soft Extremities: pedal edema (trace) ICD10 Worksheet Patient Problems: Problems Problem Status Onset Carcinoma of base of tongue Acute
--- NOTE | 2017-08-03 14:55 | HOSPPROG ---
Hospitalist Progress Note Assessment/Plan: DIAGNOSES: -lingual squamous cell carcinoma recent diagnosis, now status post tracheostomy , port placement -suspected aspiration pneumonia -acute respiratory failure with hypoxemia as a result of above procedures and tumor * Continue slow improvement here -acute on chronic renal failure with ATN on top of diabetic disease * Overall improved and close to baseline but the creatinine is slightly higher today than yesterday -diabetes mellitus type 2 with sugars higher than desired at this point * He normally is on 20 of Lantus at home and is currently receiving 15 daily, is getting Glucerna tube feeds -sinus tachycardia with PACs and PVCs on monitor today * His reports that he had been taking metoprolol at home but in discussion with his pharmacy he last received metoprolol in December of 2016, and it is unclear to me at the moment what he was taking that for or why it was stopped -history of sleep apnea -marked deconditioning and weakness with very high fall risk -depressed affect with signs of grieving probably related to inability to talk or swallow as well as the diagnosis of cancer * The patient did not bring this up to me but his pulled me aside to review this, and he certainly does seem to me to have a somewhat depressed affect the which I think is expected -obesity At this point he has need for ongoing inpatient care for his acute respiratory failure and pneumonia, for maturing of his tracheostomy, management of his tachycardia, and titration of his diabetes control. PLANS: -continue respiratory and tracheostomy care -continue tube feeds -increase Lantus to his usual 20 mg daily, follow sugars closely -check 12 lead EKG to make sure no other changes besides the increase in heart rate today -consider resuming metoprolol at this time -will have to have further visit with the patient to have discussion about grieving and his psychological status, consider beginning counseling here as we are able and certainly he will need a lot of support ongoing -DVT prophylaxis I reviewed the case in detail today with Dr. Brand and Dr. Henley SUBJECTIVE: patient complains still of some pain at his tracheostomy site, a lot of cough, some dyspnea No other discomforts Tolerating tube feeds well OBJECTIVE Vitals reviewed: More tachycardic today with pulse over 100, vital signs otherwise stable without fever still with some tachypnea [employer], my review: Sinus tachycardia with occasional PVC and PAC Exam: alert oriented , affect does appear bit depressed skin warm dry color ok resps mildly labored lungs rhonchorous BSs; tracheostomy site looks okay heart regular but tachy abd soft nondistended nontender, bowel sounds present limbs warm, still with some edema in the upper extremities, trace edema in the lower extremities iv site ok Laboratory data reviewed Notably creatinine slightly up higher today at 3.2 Sugars remain high but a little bit better overall Hemoglobin stable at 8+ Objective: Vital Signs Temp Pulse Resp BP Pulse Ox 36.7 C 108 H 19 149/77 H 96 08/03/17 12:00 08/03/17 13:25 08/03/17 13:25 08/03/17 12:00 08/03/17 13:25 Laboratory Results 08/03/17 04:25 08/03/17 04:25 08/02/17 08/03/17 08/04/17 06:59 06:59 06:59 Intake Total 1473 1732 Output Total 650 400 Balance 823 1332 - Time Spent With Patient Time Spent with Patient: greater than 35 minutes Time Spent with Patient: Greater than 35 minutes spent on this patients care, greater than 50% of time spent counseling, educating, and coordinating care regarding the above mentioned plan. ICD10 Worksheet Patient Problems: Problems Problem Status Onset Carcinoma of base of tongue Acute
--- NOTE | 2017-08-03 15:50 | ASMTCMCOM ---
CM Note CM Note Notes: Chart reviewed. Discussed with Dr. Ortega. Per Dr. Berman's note, consultation made to Oncology Radiation. Also speaking with inpatient rehab regarding patient's need for treatment timeline as this would impact the ability for inpatient rehab to accommodate Likely unable to go to SNF if he is under treatment for cancer with chemo and radiation. Spoke with his who is overwhelmed and does not have a large support community. Call to [facility], Metoprolol dose verified but no refills since December. Left message with Dr. Ramirez's office to call for medication verification. Therapy postponed due to rapid heart rates.No clear plan for discharge yet. CM to follow Date Signed: 08/03/2017 03:49 PM Electronically Signed By:Aida Aparicio RN
--- NOTE | 2017-08-03 16:00 | CPEKG ---
Heart Rate: 92 RR Interval: 652 P-R Interval: 180 QRSD Interval: 80 QT Interval: 368 QTC Interval: 456 P [place]: 12 QRS [place]: -31 T Wave [place]: 58 EKG Severity - BORDERLINE ECG - EKG Impression: SINUS RHYTHM, FREQUENT PACS, PVCS EKG Impression: LEFT AXIS DEVIATION Electronically Signed By: Domingo Israel 03-Aug-2017 17:38:42
[2017-08-03] MEDS: INSULIN GLARGINE 100 UNITS/ML UNIT SC SCH (23:15)
[2017-08-03] MEDS: HYDROCOD/APAP 7.5/325 IN 15ML UDCUP TUBE PRN (23:50)
[2017-08-04] MEDS: HEPARIN 5,000 UNIT/0.5 ML SYR SC SCH ×3 (06:13→22:05)
[2017-08-04] MEDS: ONDANSETRON 4 MG/2 ML VIAL IVP PRN (08:32)
[2017-08-04] MEDS: MULTIVIT/MINERAL/FERR GLUC 15 ML UDL TUBE SCH (08:34)
[2017-08-04] MEDS: ALLOPURINOL 300 MG TAB TUBE SCH (08:34)
[2017-08-04] MEDS: PIOGLITAZONE HCL 15 MG TAB TUBE SCH (08:34)
[2017-08-04] MEDS: SENNOSIDES 17.6 MG/10 ML UDL TUBE SCH ×2 (08:34→20:52)
[2017-08-04] MEDS: AMOXICILLIN/CLAVULANATE POT 875/125 MG TAB PO SCH (08:34)
[2017-08-04] MEDS: INSULIN REGULAR HUMAN 100 UNIT/ML UNIT SC SCH ×4 (08:49→22:05)
--- NOTE | 2017-08-04 12:24 | SOAPPROG ---
SOAP Progress Note Assessment/Plan: Assessment: Assessment: 1) SCC base of tongue 2) Airway obstruction secondary to #1- trach tube in place. Needs CXR. 3) Chronic renal insufficiency - Cr pending 4) Constipation exacerbated by pain meds. He didn't have his XRT consultation yesterday because of tachycardia. It is planned for 3:15 today. Placement efforts are complicated by his need for xrt/ chemo. Plan: - XRT evaluation today - He will need combined modality chemo+XRT - He will require rehab/snf stay for strengthening. - Needs CXR. 08/04/17 12:24 Subjective: Alert. Moist secretions Objective: Vital Signs Temp Pulse Resp BP Pulse Ox 36.7 C 82 14 162/82 H 100 08/04/17 11:40 08/04/17 11:40 08/04/17 11:40 08/04/17 11:40 08/04/17 11:40 Laboratory Results 08/03/17 04:25 08/03/17 04:25 08/02/17 08/03/17 08/04/17 23:59 23:59 23:59 Intake Total 2246 1565 790 Output Total 650 400 400 Balance 1596 1165 390 Physical Exam - Physical Exam General Appearance: alert Neck: other (tracheostomy) Respiratory: rhonchi (diffuse and moist) Cardiac/Chest: regular rate, rhythm Abdomen: normal bowel sounds Neuro/Psych: depressed affect ICD10 Worksheet Patient Problems: Problems Problem Status Onset Carcinoma of base of tongue Acute
--- NOTE | 2017-08-04 13:54 | HOSPPROG ---
Hospitalist Progress Note Assessment/Plan: DIAGNOSES: -lingual squamous cell carcinoma recent diagnosis, now status post tracheostomy , port placement -suspected aspiration pneumonia -acute respiratory failure with hypoxemia as a result of above procedures and tumor * Continue slow improvement here -acute on chronic renal failure with ATN on top of diabetic disease * Overall improved and close to baseline lab still pending today -diabetes mellitus type 2 with sugars higher than desired at this point * He normally is on 20 of Lantus at home and is currently receiving 15 daily, is getting Glucerna tube feeds -sinus tachycardia with PACs and PVCs on monitor today * His reports that he had been taking metoprolol at home but in discussion with his pharmacy he last received metoprolol in December of 2016, and it is unclear to me at the moment what he was taking that for or why it was stopped -anemia due to cancer, acute illness * Has been stable recently, lab still pending today for some reason -history of sleep apnea -marked deconditioning and weakness with very high fall risk -depressed affect with signs of grieving probably related to inability to talk or swallow as well as the diagnosis of cancer -obesity At this point he has need for ongoing inpatient care for his acute respiratory failure and pneumonia, for maturing of his tracheostomy, management of his tachycardia, and titration of his diabetes control. I reviewed the case in detail today at the bedside with Dr Salazar and with his present, and aswered their questions. At this point due to the patient not having seen a dentist in 20 years in issues related to his neck in inability to position himself properly for radiation treatments, Dr. Salazar is recommending that the patient start on chemotherapy now and delay treatment with radiation until he can get out of hospital and have appropriate dental care and fix any issues there, and perhaps find ways to make some improvement on his neck posturing. It is not determined at this time what the chemotherapy regimen will be in on that here if we have all the information related to the etiology of his tumor yet to make that decision but Dr. Salazar as recommending we consider to use carboplatin based therapy that can be given prior to radiation with good response. PLANS: -continue respiratory and tracheostomy care -continue tube feeds -increase Lantus to his usual 20 mg daily, follow sugars closely -will add some hydralazine at this time for better blood pressure control -will have to have further visit with the patient to have discussion about grieving and his psychological status, consider beginning counseling here as we are able and certainly he will need a lot of support ongoing -have asked his nurse to go ahead and draw the blood test now as they were not done this morning for some reason -DVT prophylaxis SUBJECTIVE: No new specific complaints today Some decrease in cough with changes in his respiratory care plan No pain of significance at this moment OBJECTIVE Vitals reviewed: Heart rates overall better today, remains in sinus rhythm, some hypertension, no fever; at this time oxygen is with a mask placed in front of the opening of the tracheostomy tube and is 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, 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: Sinus tachycardia with occasional PVC and PAC Exam: alert oriented , affect does appear bit depressed skin warm dry color ok resps mildly laborede lungs rhonchorous BSs; tracheostomy site looks okay heart regular but tachy abd soft nondistended nontender, bowel sounds present limbs warm, still with some edema in the upper extremities, trace edema in the lower extremities iv site ok Laboratory data reviewed Sugars remain high in the low 200s CBC and chemistry have not been done yet today for reasons not clear to me though they had been ordered for this morning Objective: Vital Signs Temp Pulse Resp BP Pulse Ox 36.7 C 82 14 162/82 H 100 08/04/17 11:40 08/04/17 11:40 08/04/17 11:40 08/04/17 11:40 08/04/17 11:40 Laboratory Results 08/03/17 04:25 08/03/17 04:25 08/03/17 08/04/17 08/05/17 06:59 06:59 06:59 Intake Total 1732 1396 Output Total 400 800 Balance 1332 596 - Time Spent With Patient Time Spent with Patient: greater than 35 minutes Time Spent with Patient: Greater than 35 minutes spent on this patients care, greater than 50% of time spent counseling, educating, and coordinating care regarding the above mentioned plan. ICD10 Worksheet Patient Problems: Problems Problem Status Onset Carcinoma of base of tongue Acute
--- NOTE | 2017-08-04 15:06 | SOAPPROG ---
SOAP Progress Note Assessment/Plan: Assessment: 1. Crf: no labs today, but creat has been near typical b/l of 2.5-3. Very likely has element of atn that should recover with time. Would cont to hold arb. Would not give addl ivf at this point as I suspect this will work itself out as he recovers from surgery. 2. Htn: would tolerate mild htn in short term while awaiting return to b/l creat. Hold arb as above. 3. SCCa: staging/treatment plan in process Plan: 08/03/17 13:36 08/04/17 15:04 Subjective: No new c/o. present. Planning to meet with Rad Onc later this afternoon. Objective: Vital Signs Temp Pulse Resp BP Pulse Ox 36.7 C 82 14 162/82 H 100 08/04/17 11:40 08/04/17 11:40 08/04/17 11:40 08/04/17 11:40 08/04/17 11:40 Laboratory Results 08/03/17 04:25 08/03/17 04:25 08/03/17 08/04/17 08/05/17 05:59 05:59 05:59 Intake Total 1732 606 790 Output Total 400 800 Balance 1332 -194 790 Physical Exam - Physical Exam General Appearance: no apparent distress Respiratory: lungs clear (anteriorly) Cardiac/Chest: regular rate, rhythm Extremities: pedal edema (trace) ICD10 Worksheet Patient Problems: Problems Problem Status Onset Carcinoma of base of tongue Acute
--- NOTE | 2017-08-04 16:06 | ASMTCMCOM ---
CM Note CM Note Notes: Spoke with Dr Berman about pts treatment plan. The details havent been worked out yet but started working on eventual DC plan today. First called [facility]pt rehab to discuss possibility of taking a pt who is in treatment for cancer. They stated they cannot handle someone getting IV chemo on their unit. Also if the pt was getting radiation, they cannot pay for !$100/day cost of transport to the appts. They also consider time at radiation is time from therapy so that he possible wouldnt qualify. Finally, they dont know how he would respond to treatment. Next called [facility]. 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 2) Medicare would require [facility] to pay for the treatment costs and they cannot afford it. 3) Pt could not stay there while awaiting start of treatment because Medicare requires at least a 20-day stay and he would likely start treatment in less than 20-days. Finally called a few local [facility] SNFs ([facility] and [facility]) to see if they would take a pt with a traech. [facility] CANNOT MANAGE A TRAECH. The Center will only take a pt that has had a traech for at least 30 days and does not require much suctioning. In addition, [facility] also expressed concerns about the costs of pts potential chemo and radiation treatment. They would likely decline pt due to that. Met with pt and to let them know the potential DC issues down the road. Also provided resources and support for pts Arlene. CM will continue to follow. Date Signed: 08/04/2017 04:06 PM Electronically Signed By:Alanna Zamudio LCSW
[2017-08-04 16:11] LABS: PLATELET COUNT 170 10^3/uL (150-400)
[2017-08-04] MEDS: hydrALAZINE 10 MG TAB TUBE SCH ×2 (17:35→22:05)
[2017-08-04] MEDS: AMOX/CLAVULANATE 500/125 MG TAB TUBE SCH (20:52)
[2017-08-04] MEDS: INSULIN GLARGINE 100 UNITS/ML UNIT SC SCH (22:05)
[2017-08-05] MEDS: HYDROCOD/APAP 7.5/325 IN 15ML UDCUP TUBE PRN (01:36)
[2017-08-05] MEDS: HEPARIN 5,000 UNIT/0.5 ML SYR SC SCH ×3 (06:06→21:15)
[2017-08-05] MEDS: AMOX/CLAVULANATE 500/125 MG TAB TUBE SCH ×2 (08:17→20:47)
[2017-08-05] MEDS: ALLOPURINOL 300 MG TAB TUBE SCH (08:17)
[2017-08-05] MEDS: INSULIN REGULAR HUMAN 100 UNIT/ML UNIT SC SCH ×4 (08:17→21:14)
[2017-08-05] MEDS: PIOGLITAZONE HCL 15 MG TAB TUBE SCH (08:17)
[2017-08-05] MEDS: hydrALAZINE 10 MG TAB TUBE SCH ×3 (08:17→21:15)
[2017-08-05] MEDS: MULTIVIT/MINERAL/FERR GLUC 15 ML UDL TUBE SCH (08:17)
[2017-08-05] MEDS: SENNOSIDES 17.6 MG/10 ML UDL TUBE SCH ×2 (08:17→23:27)
--- NOTE | 2017-08-05 08:32 | SOAPPROG ---
SOAP Progress Note Assessment/Plan: Assessment: 71 year old male s/p direct laryngoscopy, base of tongue biopsy, and placement of tracheostomy by Dr. Alcaraz for BOT SCC. He is doing well. Trach secure and functioning well. ENT will sign off and will be contacted as needed at this point. *Patient was seen by Dr. Alcaraz* 08/05/17 08:29 Subjective: Doing well. No issues breathing, swallowing. Objective: Vital Signs Temp Pulse Resp BP Pulse Ox 36.6 C 72 18 170/77 H 98 08/05/17 08:11 08/05/17 08:11 08/05/17 08:11 08/05/17 08:11 08/05/17 08:11 Laboratory Results 08/04/17 16:07 08/05/17 04:15 08/04/17 08/05/17 08/06/17 05:59 05:59 05:59 Intake Total 606 2310 Output Total 800 830 Balance -194 1480 ICD10 Worksheet Patient Problems: Problems Problem Status Onset Carcinoma of base of tongue Acute - ICD10 Problem Qualifiers (1) Carcinoma of base of tongue
--- NOTE | 2017-08-05 09:24 | HOSPPROG ---
Hospitalist Progress Note Assessment/Plan: DIAGNOSES: -lingual squamous cell carcinoma recent diagnosis, now status post tracheostomy , port placement * Chemotherapy regimen needs to be determined; Dr. Salazar from Radiation is recommending beginning chemotherapy now I as the patient has not had any dental care for 20 years and has difficulty with neck positioning such that he will be able to safely or successfully begin radiation at this time; will need to review this with Dr. Berman -suspected aspiration pneumonia * Resolving well at this time clinically -acute respiratory failure with hypoxemia as a result of above procedures and tumor * Continued slow improvement here; improve suctioning appears to be helping quite a bit -hypernatremia is developing at this time again suspect due to inadequate fluid in his feedings -acute on chronic renal failure with ATN on top of diabetic disease * Slightly worse today suspect he is becoming a bit dehydrated -diabetes mellitus type 2 with sugars higher than desired at this point * Sugars improved on increased Lantus dose -anemia due to cancer, acute illness * Stable at this time -history of sleep apnea -marked deconditioning and weakness with very high fall risk -depressed affect with signs of grieving probably related to inability to talk or swallow as well as the diagnosis of cancer * This seems to be improving somewhat at this time -obesity PLANS: -I will review with Dr. Berman as he arrives regarding strategy for beginning chemotherapy the with And tells recommendations in mind -continue respiratory and tracheostomy care with current suctioning strategy -continue tube feeds; at this point will increase water and with his tube feeds follow his renal function and hydration status closely -continue current Lantus insulin dosing and follow closely -will increase hydralazine at this time and follow blood pressure control -will get Doppler ultrasounds of upper extremities to rule out DVT -continue current DVT prophylaxis SUBJECTIVE: No new specific complaints today, pain at tracheostomy site has resolved Notably less coughing and easier breathing with the suction device added to his trach T-piece Tolerating tube feeds well no OBJECTIVE Vitals reviewed: Heart rate stable eyes, but continues to have hypertension despite addition of hydralazine, no fever 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, 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: Sinus Exam: alert oriented , affect seems better today skin warm dry color ok resps look less labored lungs breath sounds notably clearer today; tracheostomy site looks okay heart regular but tachy abd soft nondistended nontender, bowel sounds present limbs warm, still with some edema in the upper extremities but no discomfort and has good strength and mobility there iv site ok Laboratory data reviewed: Sugars better mostly below 170 at this time Chemistry panel with rising sodium and rising creatinine indicate likely volume depletion Stable hemoglobin Objective: Vital Signs Temp Pulse Resp BP Pulse Ox 36.6 C 72 18 170/77 H 98 08/05/17 08:11 08/05/17 08:11 08/05/17 08:11 08/05/17 08:11 08/05/17 08:11 Laboratory Results 08/04/17 16:07 08/05/17 04:15 08/04/17 08/05/17 08/06/17 06:59 06:59 06:59 Intake Total 1396 1520 Output Total 800 830 Balance 596 690 - Time Spent With Patient Time Spent with Patient: greater than 35 minutes Time Spent with Patient: Greater than 35 minutes spent on this patients care, greater than 50% of time spent counseling, educating, and coordinating care regarding the above mentioned plan. ICD10 Worksheet Patient Problems: Problems Problem Status Onset Carcinoma of base of tongue Acute
--- NOTE | 2017-08-05 09:57 | SOAPPROG ---
SOAP Progress Note Assessment/Plan: Assessment/Plan: DALY on CKD 4: pt with baseline diabetic nephropathy with baseline Cr of 2.5-3.0 , likely has ATN. Cr seems to have plateaued at 3.8 and came down to 3.0, today is up to 3.4 in setting of hyperchloremia. Nonoliguric, lytes ok. - No need for HD. - Will continue to monitor. - Avoid hypotension and nephrotoxins. Hypernatremia: Na up to 147, will increase free water with tube feeds and monitor. HTN: uncontrolled, will increase hydralazine and continue amlodipine. RAAS blockade on hold for now. FILIBERTO: phos 4.6, no need for phos binder, will continue to monitor. Anemia: will continue to monitor, no need for inpt epo at this time. Subjective: No acute events overnight. Pt notes that he feels quite thirsty, has some swelling in hands but not so much in legs. He is breathing comfortably. Objective: Vital Signs Temp Pulse Resp BP Pulse Ox 36.6 C 72 18 170/77 H 98 08/05/17 08:11 08/05/17 08:11 08/05/17 08:11 08/05/17 08:11 08/05/17 08:11 Laboratory Results 08/04/17 16:07 08/05/17 04:15 08/04/17 08/05/17 08/06/17 05:59 05:59 05:59 Intake Total 606 2310 Output Total 800 830 Balance -194 1480 General: alert and oriented, no acute distress Eyes: EOMI, PERRL OP: Clear CV: RRR Reps: trached, nonlabored respirations Abd: Soft, NT/ND Ext: +1 edema BUE, trace edema BLE Neuro: CN II-XII grossly intact, no asterixis Psych: cooperative ICD10 Worksheet Patient Problems: Problems Problem Status Onset Carcinoma of base of tongue Acute
--- NOTE | 2017-08-05 13:43 | SOAPPROG ---
SOAP Progress Note Assessment/Plan: Assessment: Assessment: 1) SCC base of tongue 2) Airway obstruction secondary to #1- trach tube in place. Needs CXR. 3) Chronic renal insufficiency - Cr pending 4) Constipation exacerbated by pain meds. He had and XRT consult yesterday with Dr. Salazar. Dr. Salazar felt that appropriate positioning for XRT would be problematic given the state of his tumor and that the patient's lack of dental care increases his risk of a poor outcome with XRT. Dr. Salazar recommended trying to shrink his tumor with chemotherapy (taxol/carbo) before attempting treatment with XRT. Because of his renal insufficiency, I would recommend treatment with weekly taxol (45mg/m2) + carboplatin (AUC 2). However, it is not clear to me that the patient wishes to pursue anti-tumor treatment. I think we need to get additional clarity around this issue. Therefore I am going to recommend a formal Palliative care consultation. Plan: - palliative care consultation - if he wishes to pursue treatment, will proceed with the above mentioned chemo. Subjective: Awake. Nods appropriately to questions. not in the room at this time. Objective: Vital Signs Temp Pulse Resp BP Pulse Ox 36.6 C 80 16 148/78 H 97 08/05/17 11:14 08/05/17 11:14 08/05/17 11:14 08/05/17 11:14 08/05/17 11:14 Laboratory Results 08/04/17 16:07 08/05/17 04:15 08/03/17 08/04/17 08/05/17 23:59 23:59 23:59 Intake Total 1565 1398 912 Output Total 400 780 450 Balance 1165 618 462 Physical Exam - Physical Exam General Appearance: alert, mild distress Neuro/Psych: depressed affect ICD10 Worksheet Patient Problems: Problems Problem Status Onset Carcinoma of base of tongue Acute
--- NOTE | 2017-08-05 16:18 | ASMTCMCOM ---
CM Note CM Note Notes: Palliative care consult ordered for pt for clarification of his goals. At this time, radiation is not indicated fot pt, per prog notes. Spoke with Mary Grace in [facility] rehab. Depending on pt's chemo schedule and if he chooses to go ahead with treatment, they may be able to take him there. CM will continue to follow. Date Signed: 08/05/2017 04:17 PM Electronically Signed By:Alanna Zamudio LCSW
[2017-08-05] MEDS: INSULIN GLARGINE 100 UNITS/ML UNIT SC SCH (21:14)
[2017-08-06] MEDS: HEPARIN 5,000 UNIT/0.5 ML SYR SC SCH ×3 (05:12→21:49)
[2017-08-06] MEDS: INSULIN REGULAR HUMAN 100 UNIT/ML UNIT SC SCH ×4 (07:54→21:49)
[2017-08-06] MEDS: PIOGLITAZONE HCL 15 MG TAB TUBE SCH (08:51)
[2017-08-06] MEDS: AMOX/CLAVULANATE 500/125 MG TAB TUBE SCH ×2 (08:51→21:45)
[2017-08-06] MEDS: MULTIVIT/MINERAL/FERR GLUC 15 ML UDL TUBE SCH (08:51)
[2017-08-06] MEDS: SENNOSIDES 17.6 MG/10 ML UDL TUBE SCH ×3 (08:51→19:10)
[2017-08-06] MEDS: hydrALAZINE 10 MG TAB TUBE SCH ×3 (08:52→22:37)
[2017-08-06] MEDS: ALLOPURINOL 300 MG TAB TUBE SCH (08:52)
--- NOTE | 2017-08-06 09:01 | WOCRNPDOC ---
WOCRN Advanced Assessment Note - Skin Integrity Problem, Advanced Assess Tracheostomy Site Dressing Type: Polymem Dressing Description: Intact Exudate Amount: Scant Exudate Color: Yellow Exudate Characteristic(s): Mucous Integumentary Issue Intervention: Dressing Changed Oralia Wound Tissue: Blanching, Erythema Skin Integrity Problem Comment: Removed existing trach dressing w/ RT to assess site. Skin is mostly intact, except for residual scabs on either side of trach where face plate was previously sutured. Blanching erythema throughout, no pressure injury evident. Wound care does not need to follow ongoing. Please reconsult w/ any additional wound/skin concerns.
--- NOTE | 2017-08-06 09:51 | HOSPPROG ---
Hospitalist Progress Note Assessment/Plan: DIAGNOSES: -lingual squamous cell carcinoma recent diagnosis, now status post tracheostomy with revision x2, port placement * After radiation oncology consultation it was determined that the patient could not start that treatment yet, so chemotherapy options were presented to the patient yesterday, though the patient has some hesitation to begin this therapy at this time; * Palliative care consultation is set for today -acute respiratory failure with hypoxemia as a result of above procedures and tumor * In terms of vital signs, physical exam, and oxygenation this is quite stable, however the patient does have significant sense of worsening dyspnea today * Potential differential diagnosis for his worsened dyspnea and chest discomfort with nausea include myocardial ischemia, diaphragmatic weakness, difficulty with tracheostomy site; would also consider a SVC syndrome as his arms are edemetous, but has not had Chest CT durin this stay * On today's chest x-ray I do not see signs of pulmonary edema, worsening infectious trouble, pneumothorax or other new pulmonary complications -suspected aspiration pneumonia * Resolving well at this time clinically -hypernatremia * Improved at this point by additional free water with his tube feeds -acute on chronic renal failure with ATN on top of diabetic disease * Improved today with increase in free water, approaching his baseline of 2.5-3 -diabetes mellitus type 2 with sugars higher than desired at this point * Sugars improved on increased Lantus dose -anemia due to cancer, acute illness * Some decrease hemoglobin today without any noticed bleeding, unclear if this is a real change -history of sleep apnea -marked deconditioning and weakness with very high fall risk -depressed affect with signs of grieving probably related to inability to talk or swallow as well as the diagnosis of cancer * This seems to be improving somewhat at this time but is an ongoing issue -obesity PLANS: -palliative care consult today to explore the patient's desires for ongoing care and to begin chemotherapy and radiation -I have ordered an EKG and troponin to evaluate his dyspnea and chest discomfort , if these are unremarkable will ask Dr. Peoples to look at the patient's tracheostomy and will consider checking NIF and possible fluoroscopy evaluation of diaphragmatic function; Will also consider chest imaging to r/o SVC syndr but can not use IV iodine contrast (renal dz) -continue respiratory and tracheostomy care with current suctioning strategy -continue tube feeds with increased water and with his tube feeds follow his renal function and hydration status closely -continue current Lantus insulin dosing and follow closely -for blood pressure will continue hydralazine and amlodipine, add a beta-timothy ; continue off his angiotensin receptor timothy due to his renal failure -continue current DVT prophylaxis SUBJECTIVE: This morning the patient notices a worsening sense of dyspnea and is well admits to some mild discomfort in his chest that is new today and some mild nausea Still with unchanged cough and secretions, no vomiting, no abdominal pain Otherwise remains very weak but no other new symptoms or problems that he notices OBJECTIVE Vitals reviewed: Systolic hypertension is actually worsening despite the addition and subsequent increase of hydralazine, otherwise 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, 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: Sinus Exam: alert oriented reasonably relaxed skin warm dry color ok resps look less labored lungs breath sounds notably clearer today; tracheostomy site looks okay heart regular but tachy abd soft nondistended nontender, bowel sounds present limbs warm, still with some edema in the upper extremities unchanged Remarkable generalized weakness persists iv site ok Laboratory data reviewed: Sugars better mostly below 170 at this time Chemistry panel with improved sodium and creatinine today Hemoglobin is decreased somewhat at 7.8 today otherwise no changes in CBC I ordered and reviewed images from a chest x-ray this morning: I see no pneumonia, effusions, pulmonary edema, pneumothorax or other new changes, his diaphragms do remain symmetrically severely elevated with crowding of the normal lung structures and atelectasis (has not been read by radiologist yet) Objective: Vital Signs Temp Pulse Resp BP Pulse Ox 36.6 C 87 20 195/77 H 94 08/06/17 08:00 08/06/17 08:00 08/06/17 08:00 08/06/17 08:52 08/06/17 08:00 Laboratory Results 08/06/17 05:00 08/06/17 05:00 08/05/17 08/06/17 08/07/17 06:59 06:59 06:59 Intake Total 1520 2664 Output Total 830 1000 Balance 690 4664 - Time Spent With Patient Time Spent with Patient: greater than 35 minutes Time Spent with Patient: Greater than 35 minutes spent on this patients care, greater than 50% of time spent counseling, educating, and coordinating care regarding the above mentioned plan. ICD10 Worksheet Patient Problems: Problems Problem Status Onset Carcinoma of base of tongue Acute
--- NOTE | 2017-08-06 09:52 | CPEKG ---
Heart Rate: 86 RR Interval: 698 P-R Interval: 165 QRSD Interval: 82 QT Interval: 364 QTC Interval: 436 P [place]: -22 QRS [place]: -49 T Wave [place]: 52 EKG Severity - ABNORMAL ECG - EKG Impression: SINUS RHYTHM,SOME PAC'S EKG Impression: LEFT ANTERIOR FASCICULAR BLOCK EKG Impression: BORDERLINE R WAVE PROGRESSION, ANTERIOR LEADS Electronically Signed By: Domingo Israel 06-Aug-2017 14:18:18
[2017-08-06] MEDS: ONDANSETRON 4 MG/2 ML VIAL IVP PRN (11:12)
--- NOTE | 2017-08-06 11:35 | SOAPPROG ---
SOAP Progress Note Assessment/Plan: Assessment/Plan: DALY on CKD 4: pt with baseline diabetic nephropathy with baseline Cr of 2.5-3.0 , likely has ATN. Cr seems to have plateaued at 3.8, today is 3.1. Nonoliguric , lytes ok. - No need for HD. - Will continue to monitor. - Avoid hypotension and nephrotoxins. Hypernatremia: Na improved to 143 with increasing free water flushes, will continue 200ml q2h. HTN: uncontrolled, agree with adding BB. RAAS blockade on hold. FILIBERTO: phos 4.1, no need for phos binder, will continue to monitor. Anemia: will continue to monitor, no need for inpt epo at this time. Subjective: No acute events overnight. Pt states that he is feeling tired, had some issues with breathing and trach overnight. He has no pain today. He still feels thirsty. Objective: Vital Signs Temp Pulse Resp BP Pulse Ox 36.6 C 87 20 195/77 H 94 08/06/17 08:00 08/06/17 08:00 08/06/17 08:00 08/06/17 08:52 08/06/17 08:00 Laboratory Results 08/06/17 05:00 08/06/17 05:00 08/05/17 08/06/17 08/07/17 05:59 05:59 05:59 Intake Total 2310 2664 Output Total 830 1000 Balance 1480 1664 General: alert and oriented, no acute distress Eyes: EOMI, PERRL Neck: trached CV: RRR Resp: nonlabored respirations Abd: Soft, NT Ext: trace edema BLE Neuro: CN II-XII grossly intact, no asterixis Psych: cooperative ICD10 Worksheet Patient Problems: Problems Problem Status Onset Carcinoma of base of tongue Acute
--- NOTE | 2017-08-06 12:26 | ASMTCMCOM ---
CM Note CM Note Notes: There was a palliative consult this morning. Present were pt, his Imani Jacobs, Onc Serafin, Mariah Hill, Palliative and this CM. Pt and hiw were most interested in understanding the likely treatment plan. Imani described it thoroughly and answered luis's questions, about side effects, start date, how long and when they would know if it is effective. Pt indicated he wanted to move forward with treatment. Pt is not a candidate for inpt rehab, CND or LTAC at this time due to the combination of chemo and new traech. Pt will likely remain at [facility] at least through his first round of chemo. CM marbella continue to follow. Date Signed: 08/06/2017 12:25 PM Electronically Signed By:Alanna Zamudio LCSW
--- NOTE | 2017-08-06 13:44 | SOAPPROG ---
SOAP Progress Note Assessment/Plan: Assessment: Assessment: 1) SCC base of tongue 2) Airway obstruction secondary to #1- trach tube in place. Needs CXR. 3) Chronic renal insufficiency - Cr pending 4) Constipation exacerbated by pain meds. Patient and his participated in a palliative care conference today. The patient wishes treatment in a desire to get better than he is now. Therefore, I will initiate weekly Taxol/carboplatin. Because of his renal insufficiency, I would recommend treatment with weekly taxol (45mg/m2) + carboplatin (AUC 2) Day 1, 8, 15 Q 28 days x 2 cycles then re-evaluate. Plan: Probable start of chemo tomorrow 07 AUGUST 2017 Side effects discussed with patient and . He signaled to me with a 'thumbs up' sign that he wishes to proceed with treatment. Subjective: Side effects of Taxol/carbo discussed. Objective: Vital Signs Temp Pulse Resp BP Pulse Ox 36.7 C 86 23 H 188/94 H 96 08/06/17 11:53 08/06/17 11:53 08/06/17 11:53 08/06/17 11:53 08/06/17 11:53 Laboratory Results 08/06/17 05:00 08/06/17 05:00 08/04/17 08/05/17 08/06/17 23:59 23:59 23:59 Intake Total 1398 1837 1739 Output Total 780 1000 450 Balance 230 619 4650 Physical Exam - Physical Exam General Appearance: alert, mild distress Respiratory: No rhonchi Cardiac/Chest: regular rate, rhythm Lymphatic: other (bilateral cervical adenopathy) Neuro/Psych: alert ICD10 Worksheet Patient Problems: Problems Problem Status Onset Carcinoma of base of tongue Acute
[2017-08-06] MEDS: METOPROLOL TARTRATE 25 MG TAB TUBE SCH ×2 (14:06→21:45)
[2017-08-06] MEDS: HYDROCOD/APAP 7.5/325 IN 15ML UDCUP TUBE PRN (21:48)
[2017-08-06] MEDS: INSULIN GLARGINE 100 UNITS/ML UNIT SC SCH (21:49)
[2017-08-06] MEDS ORDERED: DEXAMETHASONE 20 MG in D5W 50 ML IV ONE (22:00)
[2017-08-07] MEDS ORDERED: DEXAMETHASONE 20 MG in D5W 50 ML IV ONE (04:00)
[2017-08-07] MEDS ORDERED: SODIUM POLY SULF 15 GM/60 ML BOTTLE PO ONE ×2 (05:25→11:27)
[2017-08-07] MEDS ORDERED: CALCIUM CHLORIDE 1 GM/10 ML INJ IV ONE (05:25)
[2017-08-07] MEDS ORDERED: INSULIN LISPRO 100 UNIT/ML SC ONE (05:26)
[2017-08-07] MEDS: HEPARIN 5,000 UNIT/0.5 ML SYR SC SCH ×3 (06:36→21:06)
--- NOTE | 2017-08-07 08:35 | SOAPPROG ---
SOAP Progress Note Assessment/Plan: Assessment: DALY on CKD 4: pt with baseline diabetic nephropathy with baseline Cr of 2.5-3.0 , likely has ATN. Cr seems to have plateaued at 3.8, today is 2.9 Nonoliguric. - Will continue to monitor. Hyperkalemia: K 6.4 this am -unclear source-- change tube feeds to nepro and check CK. No obvious med culprits. Recheck pending after insulin/kayexalate/ca Hypernatremia: Na improved to 135 with increasing free water flushes, will decrease to 200ml q4h. HTN: uncontrolled, agree with adding BB. RAAS blockade on hold. FILIBERTO: phos 4.1, no need for phos binder, will continue to monitor. Anemia: will continue to monitor, no need for inpt epo at this time. SCC tongue: s/p trach, peg. plans for chemo soon Ursula Abraham MD [facility] [phone] pager 08/07/17 11:24 Subjective: Feels ok- reports diffuse pain but nothing worse than usual. No sob, n/v. K was high this am- no new meds, on glucerna tube feeds (not taking po). Objective: Vital Signs Temp Pulse Resp BP Pulse Ox 36.6 C 89 22 H 181/87 H 91 L 08/07/17 08:26 08/07/17 08:26 08/07/17 08:26 08/07/17 08:26 08/07/17 08:26 Laboratory Results 08/06/17 05:00 08/07/17 05:45 08/06/17 08/07/17 08/08/17 05:59 05:59 05:59 Intake Total 2664 2070 Output Total 1000 700 Balance 1664 1370 Physical Exam - Physical Exam General Appearance: alert, no apparent distress EENT: other (mmm) Neck: other (trach site ok) Respiratory: lungs clear Cardiac/Chest: regular rate, rhythm Abdomen: non-tender, soft Extremities: other (no edema) Neuro/Psych: alert, oriented x 3 ICD10 Worksheet Patient Problems: Problems Problem Status Onset Carcinoma of base of tongue Acute
[2017-08-07] MEDS: INSULIN REGULAR HUMAN 100 UNIT/ML UNIT SC SCH ×4 (09:28→21:06)
[2017-08-07] MEDS: MULTIVIT/MINERAL/FERR GLUC 15 ML UDL TUBE SCH ×2 (09:29→09:42)
[2017-08-07] MEDS: PIOGLITAZONE HCL 15 MG TAB TUBE SCH (09:30)
[2017-08-07] MEDS: ALLOPURINOL 300 MG TAB TUBE SCH (09:30)
[2017-08-07] MEDS: AMOX/CLAVULANATE 500/125 MG TAB TUBE SCH ×2 (09:30→21:13)
[2017-08-07] MEDS: METOPROLOL TARTRATE 25 MG TAB TUBE SCH ×2 (09:32→21:13)
[2017-08-07] MEDS: hydrALAZINE 25 MG TAB TUBE SCH ×3 (09:41→21:13)
--- NOTE | 2017-08-07 09:44 | HOSPPROG ---
Hospitalist Progress Note Assessment/Plan: # Acute Hyperkalemia - etiology unclear as no clear provoking medications or intake that can expalin repeat potassium 6.4 - clearly not hemolysis- peripheral repeat drop 5.8 - discussed with Nephrology - kayexelate -patient did stool - give Lasix 40 mg IV x1 - followed by 500 cc normal saline - recheck BMP # Acute hypoxic respiratory failure- secondary to lingual squamous cell carcinoma- resolving pneumonia - MSSA+ sputum oxygen saturations 95% on 8 L status post new tracheostomy- a lot of secretions and difficulty managing trach Chest x-ray (personally reviewed and interpreted) bilateral basilar infiltrates - consulting pulmonary for tracheostomy evaluation - transfer to Step-Down Unit for closer RT monitoring - currently Augmentin per tube- day 02/13 # Hypernatremia - correcting 147-> 135 this am with free water per tube - decreasing to avoid over correction # diabetes - blood sugar 225-298 - Continue glargine and sliding scale insulin # lingual squamous cell carcinoma- holding chemotherapy today secondary to electrolyte abnormalities - oncology following # Anemia of chronic disease - H&H stable # proph - lovenox # diet- receiving TF's # dispo- > 2MN as remains acutely ill- transferring to SDU I have discussed the case with Dr. Peoples - he will assist in evaluating the patients tracheostomy Subjective: exhausted Objective: Vital Signs Temp Pulse Resp BP Pulse Ox 36.6 C 90 22 H 156/84 H 91 L 08/07/17 08:26 08/07/17 09:32 08/07/17 08:26 08/07/17 09:32 08/07/17 08:26 Laboratory Results 08/06/17 05:00 08/07/17 05:45 08/06/17 08/07/17 08/08/17 05:59 05:59 05:59 Intake Total 2664 2070 Output Total 1000 700 Balance 1664 1370 - Physical Exam Constitutional: no apparent distress Eyes: anicteric sclera Ears, Nose, Mouth, Throat: dry mucous membranes Cardiovascular: regular rate and rhythym Respiratory: no respiratory distress Gastrointestinal: normoactive bowel sounds Genitourinary: no bladder fullness Skin: warm Musculoskeletal: No asymmetric calves Neurologic: AAOx3 Psychiatric: flat affect Lymph, Heme, Immunologic: no cervical LAD ICD10 Worksheet Patient Problems: Problems Problem Status Onset Carcinoma of base of tongue Acute
[2017-08-07] MEDS: SENNOSIDES 17.6 MG/10 ML UDL TUBE SCH ×2 (09:45→21:06)
[2017-08-07] MEDS: hydrALAZINE 10 MG TAB TUBE SCH (10:04)
[2017-08-07] MEDS ORDERED: NS 500 ML IV ONE (14:27)
[2017-08-07] MEDS ORDERED: FUROSEMIDE 40 MG/4 ML VIAL IVP ONE (14:27)
--- NOTE | 2017-08-07 16:06 | SOAPPROG ---
SOAP Progress Note Assessment/Plan: A/P: * SCC base of tongue. Dr. Salazar did not feel pt could start with chemoRT, therefore plan for inital weekly cabo/Taxol. - postpone initation of chemo today due to hyperkalemia * Hyperkalemia: Renal involved, changed TF formula. If improved tomorrow, chemo. * Airway obstruction due to tumor, trach. * Chronic renal insufficiency. 08/07/17 16:02 Subjective: present. They are worried about hyperkalemia and delay in chemo. Cough interferes with sleep. O: VS reviewed. Gen: mildly tearful. A&O. Lungs: breathing comfortably. Laboratory Tests 08/06/17 08/07/17 08/07/17 05:00 04:10 05:45 WBC 5.83 Hgb 7.8 L Plt Count 150 Sodium Potassium 6.5 H* 6.4 H* Chloride Carbon Dioxide Creatinine Glucose 08/07/17 08/07/17 10:16 12:54 WBC Hgb Plt Count Sodium 135 Potassium 5.9 H 5.8 H Chloride 102 Carbon Dioxide 27 Creatinine 2.8 H Glucose 283 H Objective: Vital Signs Temp Pulse Resp BP Pulse Ox 36.9 C 77 26 H 165/79 H 94 08/07/17 11:23 08/07/17 11:23 08/07/17 13:30 08/07/17 11:23 08/07/17 13:30 Laboratory Results 08/06/17 05:00 08/07/17 12:54 08/06/17 08/07/17 08/08/17 05:59 05:59 05:59 Intake Total 3227 7200 Output Total 1000 700 Balance 1664 1370 ICD10 Worksheet Patient Problems: Problems Problem Status Onset Carcinoma of base of tongue Acute
[2017-08-07] MEDS ORDERED: LIDOCAINE 1% 300 MG/30 ML SDV ONE (18:11)
[2017-08-07] MEDS: LIDOCAINE 1% *Not for Epidural 20 ML MDV IH PRN (18:31)
[2017-08-07 18:33] LABS: CREATINE KINASE 39 IU/L (0-224)
--- NOTE | 2017-08-07 20:58 | GCON ---
[f rep st] CONSULTATION PULMONARY CRITICAL CARE CONSULTATION DATE OF CONSULTATION: 08/07/2017 REASON FOR CONSULTATION: Respiratory distress, tracheostomy tube in place. HISTORY: Patient is a 71-year-old very pleasant gentleman who has a large carcinoma of the base of h is tongue. This is blocking his airways. A tracheostomy was placed. He has had several tracheostom y tubes placed, the last one was a #6 extra long tube with a water-filled balloon. With his tracheos venita tubes, he has had coughing and airway congestion. He is moved back to the intensive care unit a t this time secondary to his cough and anxiety associated with the endotracheal tube. PAST MEDICAL HISTORY: Remarkable for diabetes, hyperlipidemia, systemic hypertension, and mild renal insufficiency. CURRENT MEDICATIONS: Include allopurinol, amlodipine, Augmentin, subcu heparin, hydralazine, hydroco done, sliding scale insulin and Lantus, p.r.n. lorazepam at low dose, Actos, and p.r.n. medications i ncluding bowel protocol. DRUG ALLERGIES: No known drug allergies. SOCIAL HISTORY: The patient is , lives in [place], [place]. He is a never smoker. Significant alcohol is negative. FAMILY HISTORY: Noncontributory, negative for carcinoma of the GI tract. REVIEW OF SYSTEMS: A 10-point review of systems is negative except as noted above. There is no hist ory of cardiac disease, thromboembolic disease. He has lost weight prior to his admission on 018 secondary to dysphagia. PHYSICAL EXAMINATION: GENERAL: A very pleasant gentleman with a tracheostomy in place. There is a trach collar. He is in no respiratory distress. He communicates well mouthing words. VITAL SIGNS: Blood pressure 160/65, heart rate 90 and regular, respiratory rate approximately 20. He is afebrile , his last weight was 122 kg, up 2 kg compared to his admission on 07/28/2017. HEENT: Remarkable fo r the tracheostomy tube being in place. There is no stridor. There are some expiratory rhonchi/secr etions related to the tube or trachea. There is no crepitus. The mouth was not examined. NECK: La rge. I could not appreciate definite lymphadenopathy. CHEST: Clear peripherally. Breath sounds ar e diminished secondary to body habitus as he is a large man. HEART: Regular in rate and rhythm with distant heart tones. ABDOMEN: Obese, soft, and nontender. : A Hill catheter is in place. Uri ne output is good. EXTREMITIES: Peripheral edema/anasarca is present both in the feet and in the ramirez nds. IMAGING: Neck films today indicate that the tracheostomy tube is quite long and appears to be in goo d position, although it could not be seen on the lateral film. LABORATORY: White blood cell count 5800, hematocrit 24.8, platelets normal. Basic metabolic panel i s remarkable for a potassium most recently of 5.2. BUN is 80 with a creatinine of 2.8. Glucoses are elevated between 280 and 320. ASSESSMENT: 1. Tracheostomy. This was placed secondary to the squamous cell carcinoma at the base of his tongue . He is awaiting chemotherapy and radiation therapy. Both are being postponed currently. The trach eostomy tube appears to be in excellent position. There is no evidence of stridor. He does have sec retions, and the tube and/or the secretions have resulted in cough. A small amount of topical lidoca ine per the endotracheal tube intermittently may be of benefit for his symptoms. He did have MSSA gr ow from cultures. He is on Augmentin. Repeat surveillance cultures will be obtained. The patient w ill be monitored in the intensive care unit for now as step-down status. If he does well over the ne xt 12 to 24 hours, he can probably be moved back to a medical-surgical bed. 2. Chronic renal insufficiency. BUN and creatinine are chronically elevated and appear to be slight ly higher than his baseline. This is associated with hyperkalemia. Renal is following. Oncology is awaiting resolution of his hyperkalemia to start chemotherapy. PLAN AND RECOMMENDATIONS: The patient will be kept in the intensive care unit for now on step-down s tatus. I will follow him with you. A surveillance sputum culture will be repeated. Small amounts l idocaine, 2 to 3 cc, can be used down the endotracheal tube every 4 hours or so if this is of clinica l benefit for him and for his cough. Nebulized treatments may be of benefit as well in regard to spu brenden clearance. I will thus add albuterol. Other medications will be continued as he is currently ge tting them. I will leave diuresis up to Renal in light of his liver failure. He does appear to be v olume overloaded with both lower and upper extremity edema/anasarca. Further plans and recommendations will be made based on his progress over the next 12 to 24 hours. /[id number]/MODL
[2017-08-07] MEDS: INSULIN GLARGINE 100 UNITS/ML UNIT SC SCH (21:11)
[2017-08-08] MEDS: HEPARIN 5,000 UNIT/0.5 ML SYR SC SCH ×3 (05:53→21:42)
[2017-08-08] MEDS: LIDOCAINE 1% *Not for Epidural 20 ML MDV IH PRN (06:11)
[2017-08-08] MEDS: INSULIN REGULAR HUMAN 100 UNIT/ML UNIT SC SCH ×4 (08:33→21:42)
[2017-08-08] MEDS: hydrALAZINE 25 MG TAB TUBE SCH ×3 (08:34→21:41)
[2017-08-08] MEDS: METOPROLOL TARTRATE 25 MG TAB TUBE SCH ×2 (08:34→21:40)
[2017-08-08] MEDS: ALLOPURINOL 300 MG TAB TUBE SCH (08:35)
[2017-08-08] MEDS: SENNOSIDES 17.6 MG/10 ML UDL TUBE SCH ×2 (08:36→21:44)
[2017-08-08] MEDS ORDERED: LIDOCAINE 1% 300 MG/30 ML SDV IH PRN (08:36)
[2017-08-08] MEDS ORDERED: DEXAMETHASONE 20 MG in D5W 50 ML IV ONE (08:45)
--- NOTE | 2017-08-08 09:55 | SOAPPROG ---
SOAP Progress Note Assessment/Plan: Assessment: Squamous cell carcinoma base of the tongue. To start chemotherapy today. Status post tracheostomy secondary to airway obstruction. The extra long tube is in good position. This is a cuffed hyper flux Portex Bivona with adjust ability. The tube is at the 10 cm chaz at the neck. Cough: Secondary to irritation from the tube and from secretions. Intermittent lidocaine seems to be helping. MSSA positive sputum. No sima pneumonia, more consistent with bronchitis. Chest x-ray shows hypoventilatory changes with some basilar atelectasis. On oral Augmentin. Nutrition: Status post PEG placement. Being fed through this. Anemia. Hematocrit 27. Multifactorial. No evidence of bleeding. Will check iron studies. Chronic renal failure. Creatinine 2.7 today, improved. Being followed by Renal. Sodium 4.5 today. DVT prophylaxis: Subcu heparin. GI prophylaxis: None needed, being fed gastric coulee via PEG. Plan: Continue care in the intensive care unit today. Chemotherapy to be given. Continue oxygen via trach collar. Continue antibiotics. Check iron studies. Continue lidocaine q.4 hours as needed. Continue pain management. Follow laboratory, renal function, CBC. 30 min of CC time spent directly with the patient. Discussed with nursing and the ICU multi disciplinary team. Subjective: Feels better overall. Still with some cough. Intermittent lidocaine per his endotracheal tube seems to help. He denies pain, shortness of breath. Objective: Vital Signs Temp Pulse Resp BP Pulse Ox 36.6 C 69 24 H 139/54 H 93 08/08/17 08:00 08/08/17 08:34 08/08/17 08:00 08/08/17 08:34 08/08/17 08:00 Laboratory Results 08/08/17 05:40 08/08/17 05:40 08/07/17 08/08/17 08/09/17 05:59 05:59 05:59 Intake Total 2070 2962 Output Total 700 1400 Balance 1370 1562 Physical Exam - Physical Exam General Appearance: alert, no apparent distress, obese Neck: other (Large tracheostomy tube in place, approximately 1/2 inches out but in stable position. Trach collar in place), No normal inspection (Large neck, no crepitus) Respiratory: lungs clear (Anteriorly), decreased breath sounds (At bases), No rales (No significant rales), No rhonchi (No sima rhonchi but mild bronchial congestion with cough.), No wheezing Cardiac/Chest: regular rate, rhythm, systolic murmur Abdomen: normal bowel sounds, non-tender, soft (Obese), other (Peg tube in place ) Male Genitalia: other (Condom catheter in place) Skin: normal color, warm/dry Neuro/Psych: no motor/sensory deficits, No cognition abnormalities ICD10 Worksheet Patient Problems: Problems Problem Status Onset Carcinoma of base of tongue Acute
[2017-08-08] MEDS: PIOGLITAZONE HCL 15 MG TAB TUBE SCH (10:45)
[2017-08-08] MEDS: AMOX/CLAVULANATE 500/125 MG TAB TUBE SCH ×2 (10:45→21:40)
[2017-08-08] MEDS: LORazepam 1 MG/0.5 ML UDSYR TUBE PRN (12:09)
[2017-08-08] MEDS ORDERED: ZOLPIDEM TARTRATE 5 MG TAB PO PRN (12:16)
--- NOTE | 2017-08-08 13:41 | HOSPPROG ---
Hospitalist Progress Note Assessment/Plan: # Acute Hyperkalemia - etiology unclear as no clear provoking medications or intake that can explain- resolved this am potassium 6.4 -> 4.5 after lasix and IVF - cont fluids per chemo protocol - recheck BMP daily - no additional kayexelate - changed TF's to potassium sparing # Acute hypoxic respiratory failure- secondary to lingual squamous cell carcinoma- resolving pneumonia - MSSA+ sputum oxygen saturations 95% on 8 L status post new tracheostomy- a lot of secretions and difficulty managing trach Chest x-ray (personally reviewed and interpreted) persistent bilateral basilar infiltrates - pulmonary following - continue in Step-Down Unit for closer RT monitoring - currently Augmentin per tube- day 03/16 of antibiotics # Hypernatremia - correcting 147-> 135 this am with free water per tube - decreasing to avoid over correction # HTN - controlled cont metoprolol, norvasc and hydralazine per tube # diabetes - blood sugar 236-312 - Continue glargine and sliding scale insulin # lingual squamous cell carcinoma- holding chemotherapy today secondary to electrolyte abnormalities - oncology following # Anemia of chronic disease - H&H stable # proph - lovenox # diet- receiving TF's # dispo- > 2MN as remains acutely ill- transferring to SDU I have discussed the case with Dr. Peoples - tracheostomy in proper position and length - cont current care Subjective: anxious and tired Objective: Vital Signs Temp Pulse Resp BP Pulse Ox 36.5 C 72 26 H 138/62 H 94 08/08/17 12:00 08/08/17 12:00 08/08/17 12:00 08/08/17 12:00 08/08/17 12:00 Microbiology 08/07/17 06:16 - Final Sputum, Induced/Suctioned Laboratory Results 08/08/17 05:40 08/08/17 05:40 08/07/17 08/08/17 08/09/17 05:59 05:59 05:59 Intake Total 2070 2962 Output Total 700 1400 Balance 1370 1562 - Physical Exam Constitutional: chronically ill appearing, obese Eyes: anicteric sclera Ears, Nose, Mouth, Throat: moist mucous membranes Cardiovascular: regular rate and rhythym Respiratory: no respiratory distress Gastrointestinal: normoactive bowel sounds Genitourinary: no bladder fullness Skin: warm Musculoskeletal: No asymmetric calves Neurologic: AAOx3 Psychiatric: depressed, flat affect Lymph, Heme, Immunologic: No petechiae ICD10 Worksheet Patient Problems: Problems Problem Status Onset Carcinoma of base of tongue Acute
[2017-08-08] MEDS ORDERED: ONDANSETRON HCL PF 8 MG, DEXAMETHASONE 10 MG in NS 50 ML IV ONE (14:00)
[2017-08-08] MEDS ORDERED: FAMOTIDINE 20 MG/NACL 50 ML IV ONE (14:00)
[2017-08-08] MEDS ORDERED: D5W IV ONE (14:30)
[2017-08-08] MEDS ORDERED: PACLITAXEL IV ONE (14:30)
--- NOTE | 2017-08-08 15:13 | SOAPPROG ---
SOAP Progress Note Assessment/Plan: Assessment: DALY on CKD 4: pt with baseline diabetic nephropathy with baseline Cr of 2.5-3.0 , likely has ATN. Cr seems to have plateaued at 3.8, today is 2.7 Nonoliguric. - Will continue to monitor. Hyperkalemia: K 6.4 yesterday -unclear source-- changed tube feeds to nepro and check CK which was ok - No obvious med culprits. -improved and continue to follow Hypernatremia: Na dropped a bit too quickly and decreased free water to 200ml q4h Wednesday -Na stable at 135 today HTN: improved control with adding BB. RAAS blockade on hold-continue to hold for now given DALY/hyperK. FILIBERTO: phos 4.1, no need for phos binder, will continue to monitor. Anemia: iron stores ok. Will defer to heme.onc if Epo to be given (given underlying malignancy)- discussed with chemo RN who will address with oncology SCC tongue: s/p trach, peg. Chemo ongoing today Ursula Abraham MD [facility] [phone] pager 08/08/17 16:40 Subjective: Moved to ICU for trach care, closer monitoring. Getting chemo now. Sleeping but tolerating ok. K improved, tube feeds changed. Discussed with at bedside and RN. Objective: Vital Signs Temp Pulse Resp BP Pulse Ox 36.5 C 75 16 141/60 H 93 08/08/17 12:00 08/08/17 15:05 08/08/17 15:05 08/08/17 15:05 08/08/17 15:05 Microbiology 08/07/17 06:16 - Final Sputum, Induced/Suctioned Laboratory Results 08/08/17 05:40 08/08/17 05:40 08/07/17 08/08/17 08/09/17 05:59 05:59 05:59 Intake Total 2070 2962 Output Total 700 1400 Balance 1370 1562 Physical Exam - Physical Exam General Appearance: other (sleeping but arousable, NAD) EENT: other (mmm) Neck: other (trach site ok) Cardiac/Chest: regular rate, rhythm Abdomen: non-tender, soft Skin: warm/dry Extremities: other (trace LE edema bilat) Neuro/Psych: other (sleeping but arousable) ICD10 Worksheet Patient Problems: Problems Problem Status Onset Carcinoma of base of tongue Acute
--- NOTE | 2017-08-08 15:36 | SOAPPROG ---
SOAP Progress Note Assessment/Plan: A/P: * SCC base of tongue. Dr. Salazar did not feel pt could start with chemoRT, therefore plan for inital weekly cabo/Taxol. Postponed yesterday due to hyperkalemia. Pharmacy has done chemo teaching. We discussed risks, including infusion reaction. - proceed with chemo today * Airway obstruction due to tumor, trach. * Anemia: not iron deficient. Likely CKD and chronic disease. Expect worsening with chemotherapy. - Procrit 40,000 units weekly. Change to Aranesp as outpatient. * Chronic renal insufficiency. 08/08/17 15:34 Subjective: Still with cough. Some improvement with lidocaine. Trach changed. , daughter, son-in-law present. O: VS reviewed. Gen: NAD. Lungs: rhonchi. CV: bilat LE edema. Abd: obese. Laboratory Tests 08/01/17 08/08/17 08/08/17 04:35 05:40 05:40 WBC 12.00 H Hgb 7.6 L Plt Count 150 Sodium 139 Potassium 4.5 Chloride 102 Carbon Dioxide 27 Anion Gap 10 BUN 87 H Creatinine 2.7 H Estimated GFR 23 Iron TIBC Iron Saturation Ferritin Total Bilirubin 0.4 08/08/17 05:40 WBC Hgb Plt Count Sodium Potassium Chloride Carbon Dioxide Anion Gap BUN Creatinine Estimated GFR Iron 99.0 TIBC 204 L Iron Saturation 49 Ferritin 941.0 H Total Bilirubin Objective: Vital Signs Temp Pulse Resp BP Pulse Ox 36.5 C 75 16 141/60 H 93 08/08/17 12:00 08/08/17 15:05 08/08/17 15:05 08/08/17 15:05 08/08/17 15:05 Microbiology 08/07/17 06:16 - Final Sputum, Induced/Suctioned Laboratory Results 08/08/17 05:40 08/08/17 05:40 08/07/17 08/08/17 08/09/17 05:59 05:59 05:59 Intake Total 2070 2962 Output Total 700 1400 Balance 1370 1562 ICD10 Worksheet Patient Problems: Problems Problem Status Onset Carcinoma of base of tongue Acute
[2017-08-08] MEDS ORDERED: CARBOPLATIN IV ONE (16:30)
[2017-08-08] MEDS ORDERED: NS IV ONE (16:30)
[2017-08-08] MEDS ORDERED: ZOLPIDEM TARTRATE 5 MG TAB TUBE PRN (16:30)
[2017-08-08] MEDS: LIDOCAINE 1% 300 MG/30 ML SDV IH PRN (17:40)
[2017-08-08] MEDS ORDERED: INSULIN REGULAR HUMAN 100 UNIT/ML UNIT SC ONE (21:00)
[2017-08-08] MEDS: INSULIN GLARGINE 100 UNITS/ML UNIT SC SCH (21:42)
[2017-08-09] MEDS: LIDOCAINE 1% 300 MG/30 ML SDV IH PRN ×2 (05:21→13:46)
[2017-08-09] MEDS: HEPARIN 5,000 UNIT/0.5 ML SYR SC SCH ×3 (05:25→21:15)
[2017-08-09] MEDS: INSULIN REGULAR HUMAN 100 UNIT/ML UNIT SC SCH ×4 (08:56→22:32)
--- NOTE | 2017-08-09 09:12 | SOAPPROG ---
SOAP Progress Note Assessment/Plan: Assessment: 1. DALY on CKD IV. Creat back to baseline, 2.7. Has vasquez catheter. Would try to remove as soon as feasible. 2. CKD IV. Likely diabetic nephropathy. Nephrotic. B/l creat ~2.6-2.7. 3. HTN. Improving. On amlodipine, metoprolol added. Holding ARB. 4. Hypernatremia. Na stable at 138. Continue free H2O flushes. 5. Hyperkalemia. Resolved. Continue nephro tube feeds. 6. Tongue cancer. Bx shows invasive squamous cell cancer. Started carboplatin/paclitaxel yesterday. 7. Anemia. Started procrit 40K units/wk, per onc. Plan: 07/28/17 12:27 07/29/17 10:25 07/29/17 10:28 07/29/17 10:29 07/29/17 10:30 07/29/17 10:32 08/09/17 09:08 08/09/17 09:09 08/09/17 09:12 08/09/17 09:14 Subjective: Anxious to get out of hospital when possible. No current complaints. Objective: Vital Signs Temp Pulse Resp BP Pulse Ox 36.8 C 81 14 139/58 H 93 08/09/17 07:44 08/09/17 07:44 08/09/17 07:44 08/09/17 07:44 08/09/17 07:44 Microbiology 08/07/17 06:16 - Final Sputum, Induced/Suctioned Laboratory Results 08/09/17 04:26 08/09/17 04:26 08/08/17 08/09/17 08/10/17 05:59 05:59 05:59 Intake Total 2962 1830 Output Total 1400 1400 Balance 1562 430 Comfortable wm, in chair RRR, no m/g/r CTAB; Has trach, deep productive cough, +trach mask on Abdom soft, nontender Tr LE edema ICD10 Worksheet Patient Problems: Problems Problem Status Onset Carcinoma of base of tongue Acute
[2017-08-09] MEDS: METOPROLOL TARTRATE 25 MG TAB TUBE SCH ×2 (09:20→21:05)
[2017-08-09] MEDS: hydrALAZINE 25 MG TAB TUBE SCH ×3 (09:21→21:07)
[2017-08-09] MEDS: PIOGLITAZONE HCL 15 MG TAB TUBE SCH (09:21)
[2017-08-09] MEDS: ALLOPURINOL 300 MG TAB TUBE SCH (09:21)
[2017-08-09] MEDS: SENNOSIDES 17.6 MG/10 ML UDL TUBE SCH ×2 (09:22→22:23)
[2017-08-09] MEDS: MULTIVIT/MINERAL/FERR GLUC 15 ML UDL TUBE SCH (09:29)
[2017-08-09] MEDS: EPOETIN ALFA 10,000 UNIT/ML VIAL SC SCH (09:29)
[2017-08-09] MEDS: AMOX/CLAVULANATE 500/125 MG TAB TUBE SCH ×2 (09:30→21:07)
--- NOTE | 2017-08-09 12:05 | PDINTPN ---
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 To start chemotherapy today. * Status post tracheostomy secondary to airway obstruction. The extra long tube is in good position. This is a cuffed hyper flux Portex Bivona with adjust ability. The tube is at the 10 cm chaz at the neck. -tracheostomy tube seems high, but difficult to assess -will check CT scan of neck and chest. * Cough: Secondary to irritation from the tube and from secretions. -Intermittent lidocaine seems to be helping. * MSSA positive sputum. No sima pneumonia, more consistent with bronchitis. Chest x-ray shows hypoventilatory changes with some basilar atelectasis. -continue oral Augmentin * Nutrition: Status post PEG placement. Being fed through this. * Anemia. Hematocrit 27. Multifactorial. No evidence of bleeding. Will check iron studies. * Chronic renal failure. Creatinine 2.7 today, improved. Being followed by Renal. Sodium 4.5 today. * DVT prophylaxis: Subcu heparin. GI prophylaxis: None needed, being fed gastric coulee via PEG. Subjective: Sitting up in chair. Resting comfortably. In good spirits. Breathing easily. Objective: Vital Signs Temp Pulse Resp BP Pulse Ox 36.4 C 68 24 H 134/54 H 97 08/09/17 11:36 08/09/17 11:36 08/09/17 11:36 08/09/17 11:41 08/09/17 11:36 Microbiology 08/07/17 06:16 - Final Sputum, Induced/Suctioned Laboratory Results 08/09/17 04:26 08/09/17 04:26 08/08/17 08/09/17 08/10/17 05:59 05:59 05:59 Intake Total 2962 1830 Output Total 1400 1400 220 Balance 1562 430 -220 Chest [id number] by myself. Tracheostomy tube appears high - Time Spent With Patient Time Spent With Patient: 25 min of time spent with patient, over 1/2 involved with coordination of care or counseling Physical Exam - Physical Exam General Appearance: alert, no apparent distress EENT: PERRL/EOMI Neck: non-tender, other (Trach tube site clean and dry) Respiratory: rhonchi (Few basilar), No respiratory distress, No stridor, No wheezing Cardiac/Chest: normal peripheral pulses, regular rate, rhythm Abdomen: normal bowel sounds, non-tender, soft Male Genitalia: deferred Rectal: deferred Skin: normal color, warm/dry Extremities: normal range of motion, non-tender, normal inspection, normal capillary refill Neuro/Psych: no motor/sensory deficits, alert, normal mood/affect, oriented x 3 ICD10 Worksheet Patient Problems: Problems Problem Status Onset Carcinoma of base of tongue Acute
--- NOTE | 2017-08-09 12:52 | SOAPPROG ---
SOAP Progress Note Assessment/Plan: Assessment: 1. Base of tongue cancer. locally advanced with clinically positive nodes, but has not been staged radiographically 2. s/p trach to protect airway 3. chronic renal insufficiency 4. anemia due to #3 Plan: - will continue to get weekly carbo/taxol to cytoreduce tumor prior to RT - continue other supportive care, including procrit for anemia - will continue this Rx in the outpatient setting when he is ready for discharge - can get PET-CT for staging as outpatient 25 min spent w/ pt and family. 08/09/17 12:51 Subjective: feels well. no problems w/ chemo yesterday. Objective: exam: breathing comfortably trach Lungs CTAB CV RRR no mGR Abd: +BS nT ND ext: 1+ edema Vital Signs Temp Pulse Resp BP Pulse Ox 36.4 C 68 24 H 134/54 H 97 08/09/17 11:36 08/09/17 11:36 08/09/17 11:36 08/09/17 11:41 08/09/17 11:36 Microbiology 08/07/17 06:16 - Final Sputum, Induced/Suctioned Laboratory Results 08/09/17 04:26 08/09/17 04:26 08/08/17 08/09/17 08/10/17 05:59 05:59 05:59 Intake Total 2962 1830 Output Total 1400 1400 220 Balance 1562 430 -220 ICD10 Worksheet Patient Problems: Problems Problem Status Onset Carcinoma of base of tongue Acute
--- NOTE | 2017-08-09 15:12 | HOSPPROG ---
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 - tolerating well thus far - oncology following # Acute Hyperkalemia - etiology unclear as no clear provoking medications or intake that can explain- resolved potassium 4.7 - cont fluids per chemo protocol - recheck BMP daily # Acute hypoxic respiratory failure- secondary to lingual squamous cell carcinoma- resolving pneumonia - MSSA+ sputum oxygen saturations 92% on FIo2 of 50% status post new tracheostomy- a lot of secretions and difficulty managing trach Chest CT (personally reviewed and interpreted) Tracheostomy posteriorly to level of T1 - mucous plugging/altelectasis - pulmonary following - continue in Step-Down Unit for closer RT monitoring - currently Augmentin per tube- day 04/15 of antibiotics # Hypernatremia - correcting 147-> 138 this am with free water per tube - cont current free water # HTN - controlled cont metoprolol, norvasc and hydralazine per tube # diabetes - blood sugar 236-312 - Continue glargine and sliding scale insulin # Anemia of chronic disease - H&H stable # proph - lovenox # diet- receiving TF's # dispo- > 2MN as remains acutely ill- transferring to SDU I have discussed the case with RN - tolerating chemotherapy so far - continue current care Subjective: no new pain - denies nausea Objective: Vital Signs Temp Pulse Resp BP Pulse Ox 36.4 C 68 24 H 134/54 H 97 08/09/17 11:36 08/09/17 11:36 08/09/17 11:36 08/09/17 11:41 08/09/17 13:56 Microbiology 08/07/17 06:16 - Final Sputum, Induced/Suctioned Laboratory Results 08/09/17 04:26 08/09/17 04:26 08/08/17 08/09/17 08/10/17 05:59 05:59 05:59 Intake Total 2962 1830 1050 Output Total 1400 1400 470 Balance 1562 430 580 - Physical Exam Constitutional: chronically ill appearing, obese Eyes: anicteric sclera Ears, Nose, Mouth, Throat: moist mucous membranes Cardiovascular: regular rate and rhythym Respiratory: no respiratory distress, rhonchi Gastrointestinal: normoactive bowel sounds Genitourinary: no bladder fullness Skin: warm Musculoskeletal: No asymmetric calves Neurologic: AAOx3 Psychiatric: interacting appropriately, anxious Lymph, Heme, Immunologic: no cervical LAD ICD10 Worksheet Patient Problems: Problems Problem Status Onset Carcinoma of base of tongue Acute
--- NOTE | 2017-08-09 16:29 | ASMTCMCOM ---
CM Note CM Note Notes: Patient and are interested in continuing tx. Had Chemo yesterday. Trach care, airway obstruction, tumor concern so in ICU. Date Signed: 08/09/2017 04:28 PM Electronically Signed By:Payton Siegel LCSW
[2017-08-09] MEDS: LORazepam 1 MG/0.5 ML UDSYR TUBE PRN (21:17)
[2017-08-09] MEDS: INSULIN GLARGINE 100 UNITS/ML UNIT SC SCH (22:29)
[2017-08-10] MEDS: HEPARIN 5,000 UNIT/0.5 ML SYR SC SCH ×3 (05:44→21:52)
[2017-08-10 06:29] LABS: PLATELET COUNT 146 10^3/uL (150-400)
--- NOTE | 2017-08-10 08:47 | GIREPORT ---
[facility] Surgical Services - Endoscopy Department Patient Name: Sukhjinder Ortega Procedure Date: 07/30/2017 11:16 AM Patient Type: Inpatient Attending MD/ ER Physician: Leonard Weber MD Procedure: Upper GI endoscopy Indications: Oropharyngeal phase dysphagia, Feeding difficulties. Providers: Leonard Weber MD Medicines: Total IV Anesthesia (TIVA) Complications: No immediate complications. Description of Procedure: After obtaining informed consent, the endoscope was passed under direct vision. Throughout the procedure, the patient's blood pressure, pulse, and oxygen saturations were monitored continuously. The Endoscope was intro duced through the mouth, and advanced to the second part of duodenum. [facility] was accomplished without difficulty. The patient tolerated th e procedure well. Findings: The examined esophagus was normal. The entire examined stomach was normal. Placement of an externally priscila vable PEG with no T-fasteners was successfully completed. The external bumper was at the 2.0 cm marking on the tube. The examined duodenum was normal. Estimated Blood Loss: Estimated blood loss: none. Post Op Diagnosis: - Normal esophagus. - Normal stomach. - Normal examined duodenum. - An externally removable PEG placement was successfully completed. - No specimens collected. Recommendation: - Return patient to ICU for ongoing care. - G-Tube feedings per hospitalist. Attending Participation: I personally performed the entire procedure. Leonard Weber MD Leonard Weber MD 07/30/2017 12:23:59 PM This report has been signed electronicallyLeonard Weber MD Number of Addenda: 0 Note Initiated On: 07/30/2017 11:16 AM [email or web address]
[2017-08-10] MEDS: LIDOCAINE 1% 300 MG/30 ML SDV IH PRN ×2 (09:13→17:44)
[2017-08-10] MEDS: hydrALAZINE 25 MG TAB TUBE SCH ×3 (09:33→21:52)
[2017-08-10] MEDS: INSULIN REGULAR HUMAN 100 UNIT/ML UNIT SC SCH ×3 (09:33→18:31)
[2017-08-10] MEDS: PIOGLITAZONE HCL 15 MG TAB TUBE SCH (09:33)
[2017-08-10] MEDS: AMOX/CLAVULANATE 500/125 MG TAB TUBE SCH ×2 (09:33→21:51)
[2017-08-10] MEDS: METOPROLOL TARTRATE 25 MG TAB TUBE SCH ×2 (09:34→21:51)
[2017-08-10] MEDS: ALLOPURINOL 300 MG TAB TUBE SCH (09:34)
[2017-08-10] MEDS: MULTIVIT/MINERAL/FERR GLUC 15 ML UDL TUBE SCH (09:54)
[2017-08-10] MEDS: SENNOSIDES 17.6 MG/10 ML UDL TUBE SCH ×2 (09:59→21:51)
--- NOTE | 2017-08-10 11:33 | SOAPPROG ---
SOAP Progress Note Assessment/Plan: Assessment: 1. Base of tongue cancer. locally advanced with clinically positive nodes, but has not been staged radiographically 2. s/p trach to protect airway 3. chronic renal insufficiency 4. anemia due to #3 Plan: - will continue to get weekly carbo/taxol to cytoreduce tumor prior to RT. Next due WedAugust 16 - continue other supportive care, including procrit for anemia - will continue this Rx in the outpatient setting when he is ready for discharge - can get PET-CT for staging as outpatient 25 min spent w/ pt and in coordination of care. d/w dr baires. 08/09/17 12:51 08/10/17 11:33 Subjective: some cough intermittently but otherwise well. Objective: exam unchanged Vital Signs Temp Pulse Resp BP Pulse Ox 36.8 C 83 18 153/65 H 93 08/10/17 04:00 08/10/17 09:34 08/10/17 09:15 08/10/17 04:00 08/10/17 09:15 Microbiology 08/07/17 06:16 - Final Sputum, Induced/Suctioned Sputum Culture - Final Laboratory Results 08/10/17 06:20 08/10/17 06:20 08/09/17 08/10/17 08/11/17 05:59 05:59 05:59 Intake Total 1830 4139 Output Total 1400 970 Balance 430 1409 ICD10 Worksheet Patient Problems: Problems Problem Status Onset Carcinoma of base of tongue Acute
--- NOTE | 2017-08-10 14:54 | SOAPPROG ---
SOAP Progress Note Assessment/Plan: Assessment: 1. Crf: creat at b/l, good uo. 2. Htn: stable, cont current meds but would cont to hold arb. 3. SCCa: now on chemo 4. hyperK: resolved, now on low-K TF's. 5. HyperNa: resolved with h20 per tube, may need to titrated down if Na cont to trend down. Plan: 08/03/17 13:36 08/04/17 15:04 08/10/17 14:51 Subjective: Up in chair. Looks much brighter than last week. No particular c/o. Objective: Vital Signs Temp Pulse Resp BP Pulse Ox 36.8 C 83 18 153/65 H 93 08/10/17 04:00 08/10/17 09:34 08/10/17 09:15 08/10/17 04:00 08/10/17 09:15 Microbiology 08/07/17 06:16 - Final Sputum, Induced/Suctioned Sputum Culture - Final Laboratory Results 08/10/17 06:20 08/10/17 06:20 08/09/17 08/10/17 08/11/17 05:59 05:59 05:59 Intake Total 1830 2379 Output Total 1400 970 200 Balance 430 1409 -200 Physical Exam - Physical Exam General Appearance: alert, no apparent distress Respiratory: lungs clear (anteriorly) Cardiac/Chest: regular rate, rhythm Abdomen: soft Extremities: pedal edema (trace) ICD10 Worksheet Patient Problems: Problems Problem Status Onset Carcinoma of base of tongue Acute
[2017-08-10] MEDS: LORazepam 1 MG/0.5 ML UDSYR TUBE PRN ×2 (15:00→21:52)
--- NOTE | 2017-08-10 17:07 | HOSPPROG ---
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 - tolerating well thus far - oncology following # Acute Hyperkalemia - etiology unclear as no clear provoking medications or intake that can explain- resolved potassium 3.9 - cont fluids per chemo protocol - recheck BMP daily # Acute hypoxic respiratory failure- secondary to lingual squamous cell carcinoma- resolving pneumonia - MSSA+ sputum oxygen saturations 92% on FIo2 of 50% status post new tracheostomy- a lot of secretions and difficulty managing trach Chest CT (personally reviewed and interpreted) Tracheostomy posteriorly to level of T1 - mucous plugging/altelectasis - pulmonary following - continue in Step-Down Unit for closer RT monitoring - currently Augmentin per tube- day of antibiotics - tracheostomy adjusted to 12 today per RT #CKD - creatinine appears stable - 2.9 # Hypernatremia - correcting 147-> 138 this am with free water per tube - cont current free water # HTN - controlled SBP 140's cont metoprolol, norvasc and hydralazine per tube # diabetes - blood sugar 159-247 - Continue glargine and sliding scale insulin # Anemia of chronic disease - H&H stable # proph - lovenox # diet- receiving TF's # dispo- > 2MN as remains acutely ill- transferring to SDU I have discussed the case with RT - tracheostomy stable Objective: Vital Signs Temp Pulse Resp BP Pulse Ox 36.6 C 86 20 146/63 H 95 08/10/17 15:48 08/10/17 15:48 08/10/17 15:48 08/10/17 15:48 08/10/17 15:48 Microbiology 08/07/17 06:16 - Final Sputum, Induced/Suctioned Sputum Culture - Final Laboratory Results 08/10/17 06:20 08/10/17 06:20 08/09/17 08/10/17 08/11/17 05:59 05:59 05:59 Intake Total 1830 2379 Output Total 1400 970 600 Balance 430 1409 -600 ICD10 Worksheet Patient Problems: Problems Problem Status Onset Carcinoma of base of tongue Acute
[2017-08-10] MEDS: INSULIN GLARGINE 100 UNITS/ML UNIT SC SCH (21:51)
[2017-08-10] MEDS: HYDROCOD/APAP 7.5/325 IN 15ML UDCUP TUBE PRN (21:53)
[2017-08-11] MEDS: INSULIN REGULAR HUMAN 100 UNIT/ML UNIT SC SCH ×4 (01:27→18:09)
[2017-08-11] MEDS: LORazepam 1 MG/0.5 ML UDSYR TUBE PRN (04:07)
[2017-08-11] MEDS: HEPARIN 5,000 UNIT/0.5 ML SYR SC SCH ×3 (06:04→21:22)
[2017-08-11] MEDS: hydrALAZINE 25 MG TAB TUBE SCH ×3 (08:10→21:22)
[2017-08-11] MEDS: METOPROLOL TARTRATE 25 MG TAB TUBE SCH ×2 (08:10→21:22)
[2017-08-11] MEDS: SENNOSIDES 17.6 MG/10 ML UDL TUBE SCH ×2 (08:10→21:30)
[2017-08-11] MEDS: ALLOPURINOL 300 MG TAB TUBE SCH (08:10)
[2017-08-11] MEDS: AMOX/CLAVULANATE 500/125 MG TAB TUBE SCH ×2 (08:10→21:22)
[2017-08-11] MEDS: PIOGLITAZONE HCL 15 MG TAB TUBE SCH (08:10)
[2017-08-11] MEDS: MULTIVIT/MINERAL/FERR GLUC 15 ML UDL TUBE SCH (08:15)
[2017-08-11] MEDS ORDERED: FUROSEMIDE 40 MG/4 ML VIAL IVP ONE (08:30)
--- NOTE | 2017-08-11 08:34 | SOAPPROG ---
SOAP Progress Note Assessment/Plan: Assessment: 1. DALY on CKD IV. Creat back to baseline, 2.7. Has vasquez catheter. Would try to remove as soon as feasible. 2. CKD IV. Likely diabetic nephropathy. Nephrotic. B/l creat ~2.6-2.7. 3. HTN. Improving. On amlodipine, metoprolol. Holding ARB. 4. Hypernatremia. Na stable at 137. Continue free H2O flushes. 5. Volume overload. Weights not reliably but has significant edema, CXR looks a little wet. Will give dose of lasix today. 6. Tongue cancer. Bx shows invasive squamous cell cancer. Started carboplatin/paclitaxel Wednesday. 7. Anemia. Started procrit 40K units/wk, per onc. Plan: 07/28/17 12:27 07/29/17 10:25 07/29/17 10:28 07/29/17 10:29 07/29/17 10:30 07/29/17 10:32 08/09/17 09:08 08/09/17 09:09 08/09/17 09:12 08/09/17 09:14 08/11/17 08:32 Subjective: Frustrated. Still having lots of secretions. No new complaints. Objective: Vital Signs Temp Pulse Resp BP Pulse Ox 36.6 C 90 20 141/61 H 96 08/11/17 08:00 08/11/17 08:00 08/11/17 08:00 08/11/17 08:00 08/11/17 08:00 Microbiology 08/07/17 06:16 - Final Sputum, Induced/Suctioned Sputum Culture - Final Laboratory Results 08/10/17 06:20 08/11/17 05:27 08/10/17 08/11/17 08/12/17 05:59 05:59 05:59 Intake Total 2379 2362 Output Total 970 1200 Balance 1409 1162 In chair, NAD RRR, II/ sys murmur Coarse breath sounds Abdom obese, nontender 2+ pitting in UE/LEs CXR yesterday: Increased interstitial and hilar lung markings ICD10 Worksheet Patient Problems: Problems Problem Status Onset Carcinoma of base of tongue Acute
--- NOTE | 2017-08-11 09:04 | PDINTPN ---
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 On chemo once a week for 8 weeks * Status post tracheostomy secondary to airway obstruction. The extra long tube is in good position. This is a cuffed hyper flux Portex Bivona with adjust ability. -tracheostomy tube in good position. * Cough: Secondary to irritation from the tube and from secretions. -Intermittent lidocaine seems to be helping. * MSSA positive sputum. No sima pneumonia, more consistent with bronchitis. Chest x-ray shows hypoventilatory changes with some basilar atelectasis. -continue oral Augmentin * Nutrition: Status post PEG placement. -swallow evaluation in progress per speech * Anemia. Hematocrit 27. Multifactorial. No evidence of bleeding. * Chronic renal failure. Creatinine 2.7 today, improved. Being followed by Renal. * DVT prophylaxis: Subcu heparin. GI prophylaxis: None needed, being fed gastric via PEG. * PT/OT * Out of bed Subjective: Sitting up in chair. Somewhat dyspneic with Passy Ilene valve in place. Cough is improved. Objective: Vital Signs Temp Pulse Resp BP Pulse Ox 36.6 C 90 20 141/61 H 96 08/11/17 08:00 08/11/17 08:00 08/11/17 08:00 08/11/17 08:00 08/11/17 08:00 Microbiology 08/07/17 06:16 - Final Sputum, Induced/Suctioned Sputum Culture - Final Laboratory Results 08/10/17 06:20 08/11/17 05:27 08/10/17 08/11/17 08/12/17 05:59 05:59 05:59 Intake Total 2379 2362 Output Total 970 1200 Balance 1409 1162 - Time Spent With Patient Time Spent With Patient: 25 min of time spent with patient, over 1/2 involved with coordination of care or counseling Physical Exam - Physical Exam General Appearance: alert, no apparent distress EENT: PERRL/EOMI Neck: non-tender, other (Tracheostomy tube site is clean and dry) Respiratory: rhonchi (Few scattered), No respiratory distress, No wheezing Cardiac/Chest: regular rate, rhythm, systolic murmur Peripheral Pulses: 2+: carotid (R), carotid (L), femoral (R), femoral (L), dorsalis-pedis (R), dorsalis-pedis (L) Abdomen: normal bowel sounds, non-tender, soft, other (Peg tube site clean and dry) Male Genitalia: deferred Rectal: deferred Skin: normal color, warm/dry Extremities: normal range of motion, non-tender, normal inspection, normal capillary refill Neuro/Psych: no motor/sensory deficits, alert, normal mood/affect, oriented x 3 ICD10 Worksheet Patient Problems: Problems Problem Status Onset Carcinoma of base of tongue Acute
--- NOTE | 2017-08-11 09:26 | SOAPPROG ---
SOAP Progress Note Assessment/Plan: Assessment: 1. Base of tongue cancer. locally advanced with clinically positive nodes, but has not been staged radiographically. The patient is receiving weekly carbo/ taxol. He is C1 D4. (08/08). He had 45 mg/m2 paclitaxel and carbo AUC 2. 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 s/p trach to protect airway 3. chronic renal insufficiency 4. anemia due to #3 5. Swollen LEFT arm. Check U/S Plan: - will continue to get weekly carbo/taxol to cytoreduce tumor prior to RT. Next due WedAugust 16 - continue other supportive care, including procrit for anemia - will continue this Rx in the outpatient setting when he is ready for discharge - can get PET-CT for staging as outpatient - Disposition will be difficult due to need for ongoing cancer care 08/11/17 09:21 08/11/17 09:34 08/11/17 09:38 08/11/17 09:39 Subjective: He has a trach. He is not in significant pain. He is breathing OK Objective: Vital Signs Temp Pulse Resp BP Pulse Ox 36.6 C 90 20 141/61 H 96 08/11/17 08:00 08/11/17 08:00 08/11/17 08:00 08/11/17 08:00 08/11/17 08:00 Microbiology 08/07/17 06:16 - Final Sputum, Induced/Suctioned Sputum Culture - Final Laboratory Results 08/10/17 06:20 08/11/17 05:27 08/10/17 08/11/17 08/12/17 05:59 05:59 05:59 Intake Total 8692 0448 Output Total 970 1200 Balance 1409 1162 Swollen LEFT arm - Time Spent With Patient Time Spent With Patient: 30 min ICD10 Worksheet Patient Problems: Problems Problem Status Onset Carcinoma of base of tongue Acute
--- NOTE | 2017-08-11 13:32 | PDCONSULT ---
Sharepoint Application Architect Note: REHABILITATION MEDICINE CONSULTATION VISIT INFORMATION: Rehab Medicine consultation was requested by Dr. Peterson's ICU team to provide an opinion regarding rehabilitation needs for this patient with squamous cell carcinoma of the oropharynx. CC/ID: 71-year-old male with squamous cell carcinoma of the oropharynx with new impairments in mobility, self-care, swallowing and possibly cognition HPI: As noted above, this is a 71-year-old male who was previously high functioning with a history significant for diabetic retinopathy and chronic renal insufficiency who had the gradual onset of difficulty swallowing and weight loss that ultimately presented to medical care and was found to have was recently diagnosed as squamous cell carcinoma of the oropharynx with clinically positive nodes though not fully radiographically staged, C1 D4, HPV negative. PET-CT is anticipated in approximately a week for additional staging. He has had 1 dose of carboplatin/Taxol and will be getting approximately 8 sessions, 1 per week followed by radiation therapy. Next chemotherapy session will be August 16. He will have a specialized tracheostomy, expected to have this for a considerable period of time, complicated by increased oxygen needs and secretions. He is currently in the ICU as the care need was too high for the acute care floor. His hospital course has been complicated by decreased oxygenation, tracheal secretions, hypertension, hyponatremia, volume overload, anemia thought secondary to chronic kidney disease, diabetes mellitus, hyperlipidemia. He has been receiving Procrit for the anemia. Overall his medical status is relatively stable at this point. I discussed the case with Dr. Peterson who felt that the status of the trach is well managed, he felt that caregivers could be trained on secretion management for the trach. He also felt that the tracheostomy would be present relatively long-term. He also felt that if the tracheostomy were dislodged that it would be a life-threatening emergency for him, highlighting the importance of staffing caregiver training. I also discussed the case personally with Dr. Alaniz who was able to follow the patient on inpatient rehabilitation if necessary. He felt that the PET-CT would be ordered in approximately 1-2 weeks. I spoke personally with the speech language pathologist, Nika, who stated that he just passed the swallow study and is cleared for regular diet with thin liquids with double swallow as a compensatory mechanism. Today the patient denies any shortness of breath or chest pain, all other systems were negative except for as described above FUNCTIONAL HISTORY: Prior function: Was previously independent with ADLs/IADLs, mobility, cognition/ communication, swallow, bowel and bladder; was driving. He has had a left hand tremor for approximately 10 years that he does not feel it has gotten any better or worse than that over time. It is not functionally limiting but does make functional tasks more difficult. He avoids things like small buttons with the left hand. He is currently NPO, but just passed a swallow study for a regular diet with thin liquids. Advised to do some double swallow. He is contact guard assist to minimum assistance for ADLs with a front wheel walker, he does have oxygen desaturations with activities. He is standby assist to min assist for ambulation, requiring cues. Speech therapy indicates that there is likely a cognitive impairment issue, unclear the etiology. ROS: All systems negative except as per HPI, including no chest pain PMH/PSH: Squamous cell carcinoma of the oropharynx as noted above, diabetic retinopathy, obstructive sleep apnea, hypertension, anemia, diabetes, hyperlipidemia, 10 year history of hand tremor without diagnosis Med/All: No known drug allergies Medications reviewed in the electronic medical record significant for epoetin SOCIAL HISTORY: Patient lives in [place] with his , has daughter and son-in- law nearby. They live in a ranch style home with 2 stairs to enter, no stairs inside except for to the basement. His is retired and can provide care at home though she acknowledges she can provide heavy care. He does not smoke, no alcohol use, no drugs. FAMILY HISTORY: He is adopted so does not know his family history, his child is healthy. PHYSICAL EXAM: VS: Temperature 36.6 blood pressure 144/64, pulse of 74, O2 saturations were 96% on 8 L trach collar. GEN: Normally developed, resting in chair, NAD PSYCH: appropriate, pleasant, cooperative; normal mood, affect and thought content. thought that he was having difficulty adjusting HEENT: NCAT, OP clear, MMM. Tracheostomy in place with trach collar on. He had swelling about the neck CV: Heart RRR, no m/r/g, no LE edema, extremities warm. He had 2 to 3+ edema in the bilateral hands RESP: Breathing comfortably, lungs had significant rhonchi particularly on the left side, no wheezes or rales. ABD: +BS, soft, NTND : Hill in place draining clear yellow urine EXTREMITIES: Upper limb edema noted, no other deformities. SKIN: no rashes or skin breakdown noted. NEUROLOGIC EXAM: LOC: Alert Cognitive exam was deferred given his limited ability to communicate with a tracheostomy Cranial nerves: CNI: not tested CNII: no visual deficits detected, afferent pupil response to light intact CNIII, IV, : PERRL, EOMI CNV: intact sensation in all three divisions bilaterally, motor function intact CNVII: symmetric facial expressions CNVIII: gross hearing intact CN IX and X: Hoarseness was appreciated, did not visualize uvula. CN XI: symmetric shoulder shrug CN XII: tongue protrudes midline without fasciculation or deviation Motor function: Tone: normal muscle tone and bulk without involuntary movements Pronator Drift: absent Strength: MMT 0-5 scoring: R, L EF (5, 5) EE (5, 5) WE (5, 5) FF (5, 5) Ayah (4, 4) KE (5, 5) ADF (5, 5) APF (5, 5) GTE (5, 5) Reflexes: Bic Tri BrachioRad Patella Achilles R 2+ 2+ 2+ 2+ 2+ L 2+ 2+ 2+ 2+ 2+ Babinski: downgoing toes bilaterally Srivastava's: absent bilaterally Sensory function: Light touch: intact in bilateral upper and lower extremities Cerebellar function: Anterior Cerebellum/Gait: No not ambulated Rapid alternating movements: within normal limits, no dysdiadochokinesis, slightly slow on the left with tremor Tremor: Left hand tremor both at rest, and particularly with intention. RESULTS REVIEW: Aiding therapy notes reviewed. Our next CT from 08/09/2017 showed a tracheostomy in place with left posterior oropharynx mass, coronary artery disease, mucous plugging. Video fluoroscopic swallow study today was discussed but not visualized, apparently able to tolerate regular diet thin liquid. ASSESSMENT/PLAN: 71-year-old male with new impairments in mobility, self-care, swallow, communication with newly diagnosed squamous cell carcinoma of the oropharynx as described in the history of present illness. He is scheduled to have weekly chemotherapy for the next 8 weeks followed by radiation therapy. The patient is currently unable to go home because of his functional status, patient has good support from his who can provide light care. Also has family in the area able to provide care. He had 1 round of chemotherapy and is reporting virtually no side effects from that at this point. I am currently in touch with the oncology team to see if we can coordinate administration of IV chemotherapy during a rehabilitation course. The patient would benefit from inpatient rehab for treatment of impairments of mobility, self-care, as well as caregiver training for the tracheostomy and PEG tube. His is amenable to this training and feels that she could care for him at home with that type of training. If we are unable to coordinate the chemotherapy to be administered during the inpatient rehabilitation stay it is possible that he could have a shorter stay in between chemotherapy sessions. Additional complicating factors are his left hand tremor that is longstanding, without diagnosis, but does not appear to be particularly functionally limiting. He has chronic renal insufficiency but is not on hemodialysis. He would be a good candidate for inpatient rehabilitation, however the concurrent administration of chemotherapy may be prohibitive. Will continue to investigate this matter. Alternative options could include other inpatient rehabilitation facilities, LTAC, intermediate facility. Dr. Peterson is particularly concerned about having this patient go to a intermediate facility with his tracheostomy which is particularly specialized. It appears that he will likely not qualify for LTAC because of the chemotherapy. Will continue to work with the primary team and social work team for appropriate rehabilitation course. A total of 120 min was spent on the floor in the care of the patient, the majority of which was spent counseling and coordination of care regarding chemotherapy administration on inpatient rehabilitation and discussion with the family regarding options for rehabilitation care.
--- NOTE | 2017-08-11 13:50 | HOSPPROG ---
Hospitalist Progress Note Assessment/Plan: Assessment: 71-year-old male presents with lingular squamous cell carcinoma of the tongue base compromising his airway requiring tracheostomy and PEG placement c/b ATN Plan: 1. 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 Status post airway stabilization with tracheostomy, dietary stabilization with PEG tube, initiated on carbo/taxol - appreciate ongoing oncology consultation, next dose of carbo/taxol 08/16 - d/w Dr. Peterson and El how chemo infusions may interrupt Inpt Rehab, Dr. Gallegos will investigate whether patient is appropriate candidate and consult 2. Acute tubular necrosis on CKD Stage IV. Patient experienced ATN with peak creatinine 3.8, most likely hemodynamically mediated in the setting of chronic kidney disease stage 4 with baseline creatinine 2.5-3.0 -appreciate ongoing nephrology consultation, Cr downtrended to 2.7 -continue monitor creatinine level and urine output 3. Aspiration pneumonia. Seen by Pulmonary, status post IV antibiotics including vancomycin and levofloxacin, sputum culture from 07/29 demonstrating MSSA -07/31 chest x-ray demonstrating improvement -s/p 14 days of liq Augmentin, discontinue in AM 4. Anemia of chronic kidney disease. Continue monitor hemoglobin level 5. Diabetes mellitus type 2 with hyperglycemia. Improved w/ uptitration of lantus, actos, ISS 6. Acute atelectasis. Encourage incentive spirometer 7. Hypertension. Chronic, reinitiated amlodipine 8. Acute Hyperkalemia. 2/2 ATN, downtrended 9. Acute hypoxic respiratory failure. Evidenced by SpO2 85% on 30% FiO2, requiring uptitration to 50-60% FiO2, w/ objective tachypnea (RR>22) and frothy secretions, indicating that it is 2/2 combination of pneumonia, atelectasis, mucous plugging and NOT the original procedure - weaned to FiO2 35% - completely reliant on trach for airway protection, CT confirmed correct placement - d/w Dr. Peterson and RT, secretions currently well managed, it is symptomatic cough which requires additional suction care 10. Superficial cephalic vein thrombosis on left upper extremity. Resulting in edema, elevate and warm compress, cont on dvt ppx but do not systemically anticoagulate as this is NOT a DVT Diet. Peg tube Code. Full Prophylaxis. High risk patient, heparin subcu Disposition. Anticipated discharge uncertain, Inpt Rehab evaluating High-level of medical complexity, high risk of worsening morbidity secondary to all the issues as outlined above. Subjective: Patient denies any current pain Objective: Vital Signs Temp Pulse Resp BP Pulse Ox 36.6 C 74 20 144/64 H 96 08/11/17 08:00 08/11/17 11:38 08/11/17 11:38 08/11/17 11:38 08/11/17 11:38 Microbiology 08/07/17 06:16 - Final Sputum, Induced/Suctioned Sputum Culture - Final Laboratory Results 08/10/17 06:20 08/11/17 05:27 08/10/17 08/11/17 08/12/17 05:59 05:59 05:59 Intake Total 2379 2362 Output Total 970 1200 200 Balance 1409 1162 -200 - Physical Exam Constitutional: no apparent distress, not in pain, chronically ill appearing, obese, No uncomfortable Ears, Nose, Mouth, Throat: other (Tracheostomy in place) Cardiovascular: regular rate and rhythym, no murmur, rub, or gallop, No edema Respiratory: inspiratory crackles, No reduced air movement, No expiratory wheeze , No bronchial breath sounds, No respiratory distress Gastrointestinal: normoactive bowel sounds, soft, non-tender abdomen, no palpable masses, No distension Skin: other (No erythema/induration/fluctuance/tenderness at the left chest port site) Psychiatric: flat affect ICD10 Worksheet Patient Problems: Problems Problem Status Onset Carcinoma of base of tongue Acute
[2017-08-11] MEDS: INSULIN GLARGINE 100 UNITS/ML UNIT SC SCH (21:28)
[2017-08-12] MEDS: LORazepam 1 MG/0.5 ML UDSYR TUBE PRN (00:52)
[2017-08-12] MEDS: INSULIN REGULAR HUMAN 100 UNIT/ML UNIT SC SCH ×4 (00:56→18:36)
[2017-08-12] MEDS: HEPARIN 5,000 UNIT/0.5 ML SYR SC SCH ×3 (05:40→21:09)
[2017-08-12 06:07] LABS: PLATELET COUNT 145 10^3/uL (150-400)
[2017-08-12] MEDS: ALLOPURINOL 300 MG TAB TUBE SCH (09:09)
[2017-08-12] MEDS: METOPROLOL TARTRATE 25 MG TAB TUBE SCH (09:09)
[2017-08-12] MEDS: hydrALAZINE 25 MG TAB TUBE SCH (09:09)
[2017-08-12] MEDS: PIOGLITAZONE HCL 15 MG TAB TUBE SCH (09:09)
[2017-08-12] MEDS: AMOX/CLAVULANATE 500/125 MG TAB TUBE SCH (09:09)
[2017-08-12] MEDS: MULTIVIT/MINERAL/FERR GLUC 15 ML UDL TUBE SCH (09:14)
--- NOTE | 2017-08-12 09:17 | PDINTPN ---
Clearing House Clerk Progress Note Assessment/Plan: Assessment/Plan: * Squamous cell carcinoma base of the tongue. On chemo once a week for 8 weeks * Status post tracheostomy secondary to airway obstruction. The extra long tube is in good position. This is a cuffed hyper flux Portex Bivona with adjust ability. -tracheostomy tube in good position. * Cough: Secondary to irritation from the tube and from secretions. -Intermittent lidocaine seems to be helping. * MSSA positive sputum. No sima pneumonia, more consistent with bronchitis. Chest x-ray shows hypoventilatory changes with some basilar atelectasis. -continue oral Augmentin * Nutrition: Now on orals. -will wean off tube feeds * Anemia. Hematocrit 27. Multifactorial. No evidence of bleeding. * Chronic renal failure. Creatinine 2.7 today, improved. Being followed by [facility]. * DVT prophylaxis: Subcu heparin. GI prophylaxis: None needed, being fed gastric via PEG. * PT/OT-begin ambulation * Out of bed * Disposition-possible rehab versus LTAC Subjective: Sitting up in chair resting comfortably. Objective: Vital Signs Temp Pulse Resp BP Pulse Ox 36.8 C 78 20 135/56 H 97 08/12/17 07:53 08/12/17 09:09 08/12/17 07:53 08/12/17 07:53 08/12/17 07:53 Laboratory Results 08/12/17 05:45 08/12/17 05:45 08/11/17 08/12/17 08/13/17 05:59 05:59 05:59 Intake Total 2362 1690 Output Total 1200 1200 Balance 1162 490 - Time Spent With Patient Time Spent With Patient: 25 min of time spent with patient, over 1/2 involved with coordination of care or counseling. Case discussed with nurse Physical Exam - Physical Exam General Appearance: WD/WN, alert, no apparent distress EENT: PERRL/EOMI Neck: non-tender, other (Tracheostomy tube site clean and dry) Respiratory: chest non-tender, lungs clear, normal breath sounds Cardiac/Chest: normal peripheral pulses, regular rate, rhythm, systolic murmur Peripheral Pulses: 2+: carotid (R), carotid (L), femoral (R), femoral (L), dorsalis-pedis (R), dorsalis-pedis (L) Abdomen: normal bowel sounds Male Genitalia: deferred Rectal: deferred Skin: normal color, warm/dry Extremities: normal range of motion, non-tender, normal inspection, normal capillary refill Neuro/Psych: alert ICD10 Worksheet Patient Problems: Problems Problem Status Onset Carcinoma of base of tongue Acute
[2017-08-12] MEDS: SENNOSIDES 17.6 MG/10 ML UDL TUBE SCH (10:00)
--- NOTE | 2017-08-12 10:08 | SOAPPROG ---
SOAP Progress Note Assessment/Plan: Assessment: 1. Base of tongue cancer. locally advanced with clinically positive nodes (T3N2) , but has not been staged radiographically 2. s/p trach to protect airway 3. chronic renal insufficiency 4. anemia due to #3 Plan: - will continue to get carbo/taxol to cytoreduce tumor prior to RT. Next due WedAugust 16 - can consider changing to q3 week chemotherapy for induction, rather than weekly, if that would help get him to a rehab. However, the risk of complications, particularly infection, is likely higher with the q3 week schedule - cough likely due to presence of trach, will continue to discuss with team to minimize symptoms - can get PET-CT for staging as outpatient 25 min spent w/ pt and in coordination of care. d/w dr baires and dr montero. Subjective: frustrated by cough, did not sleep well last night. Objective: exam breathing comfortably trach in place lungs CTAB CV RRR no MGR Abd: +BS NT ND Ext: 1+ edema Vital Signs Temp Pulse Resp BP Pulse Ox 36.8 C 78 20 135/56 H 97 08/12/17 07:53 08/12/17 09:09 08/12/17 07:53 08/12/17 07:53 08/12/17 07:53 Laboratory Results 08/12/17 05:45 08/12/17 05:45 08/11/17 08/12/17 08/13/17 05:59 05:59 05:59 Intake Total 2362 1690 250 Output Total 1200 1200 200 Balance 1162 490 50 ICD10 Worksheet Patient Problems: Problems Problem Status Onset Carcinoma of base of tongue Acute
[2017-08-12] MEDS ORDERED: guaiFENesin/CODEINE PHOS 10 ML UDCUP PO PRN (10:49)
[2017-08-12] MEDS ORDERED: GUAIFENESIN/DM 10 ML UDCUP PO PRN (10:49)
[2017-08-12] MEDS ORDERED: HYDROCOD/APAP 7.5/325 IN 15ML UDCUP PO PRN (11:00)
[2017-08-12] MEDS ORDERED: LACTULOSE 20 GM/30 ML UDCUP PO PRN (11:00)
[2017-08-12] MEDS ORDERED: CALCIUM CARBONATE 500 MG CHEWABLE TAB PO PRN (11:44)
--- NOTE | 2017-08-12 12:05 | CPEKG ---
Heart Rate: 72 RR Interval: 833 P-R Interval: 192 QRSD Interval: 94 QT Interval: 404 QTC Interval: 443 P Asher: -11 QRS Asher: -35 T Wave Asher: 37 EKG Severity - OTHERWISE NORMAL ECG - EKG Impression: SINUS RHYTHM EKG Impression: LEFT AXIS DEVIATION Electronically Signed By: Sara Feliz 12-Aug-2017 15:26:31
[2017-08-12] MEDS: PANTOPRAZOLE SODIUM 40 MG TAB PO SCH (12:32)
--- NOTE | 2017-08-12 12:46 | ASMTCMCOM ---
CM Note CM Note Notes: The combination of patient's trach and the need for chemotherapy has limited patient's options. [facility] inpatient rehab is looking into whether or not they can take the patient with his chemotherapy requirements. Spoke with Bee who is waiting on answers from her 's as to whether they can handle all of patient's needs. In rounds, Dr. Retana said oncology was looking into patient getting his chemo every 3 weeks instead of weekly. Bee states this actually won't make much difference. D/C plan still TBD. CM will follow. Date Signed: 08/12/2017 12:45 PM Electronically Signed By:Amee Borrego LCSW
[2017-08-12] MEDS ORDERED: FUROSEMIDE 40 MG/4 ML VIAL IVP ONE (14:51)
--- NOTE | 2017-08-12 14:55 | SOAPPROG ---
SOAP Progress Note Assessment/Plan: Assessment/Plan: DALY on CKD 4: pt with baseline diabetic nephropathy with baseline Cr of 2.5-3.0 , likely has ATN. Cr seems to have peaked at 3.8 and now is stable back at baseline at 2.7. Nonoliguric, lytes ok. - No need for HD. - Will continue to monitor. - Avoid hypotension and nephrotoxins. HTN: BP ok on current meds, will continue to monitor. Hypervolemia: will give a dose of Lasix today and continue to monitor. Anemia: pt getting weekly epo, last dose on 08/09/17. Subjective: No acute events overnight. Pt states that he has no pain but his breathing is still not great. He feels tired. He did get to go and sit outside for a while today. Objective: Vital Signs Temp Pulse Resp BP Pulse Ox 36.8 C 71 20 125/57 H 94 08/12/17 07:53 08/12/17 11:19 08/12/17 11:19 08/12/17 11:19 08/12/17 11:19 Laboratory Results 08/12/17 05:45 08/12/17 05:45 08/11/17 08/12/17 08/13/17 05:59 05:59 05:59 Intake Total 2362 1690 711 Output Total 1200 1200 200 Balance 1162 490 511 General: alert and oriented, no acute distress Eyes: EOMI, PERRL Neck: trached CV: RRR Resp: trached Abd: Soft, NT Ext: +2 edema BLE Neuro: CN II-XII grossly intact, no asterixis Psych: cooperative, appropriate mood and affect ICD10 Worksheet Patient Problems: Problems Problem Status Onset Carcinoma of base of tongue Acute
[2017-08-12] MEDS: hydrALAZINE 25 MG TAB PO SCH ×2 (15:52→21:09)
[2017-08-12] MEDS: LIDOCAINE 1% 300 MG/30 ML SDV IH PRN (17:36)
--- NOTE | 2017-08-12 18:00 | HOSPPROG ---
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 Status post airway stabilization with tracheostomy, dietary stabilization with PEG tube, initiated on carbo/taxol - appreciate ongoing oncology consultation, next dose of carbo/taxol 08/16 - d/w Dr. Peterson and Dr. Huitron at length, possible option includes q3week carbo/taxol (dose on 08/15) and improve performance status at [facility] in interim, and case mgmt will d/w [facility] 2. Acute tubular necrosis on CKD Stage IV. Patient experienced ATN with peak creatinine 3.8, most likely hemodynamically mediated in the setting of chronic kidney disease stage 4 with baseline creatinine 2.5-3.0 -appreciate ongoing nephrology consultation, Cr downtrended to 2.7 -continue monitor creatinine level and urine output 3. Aspiration pneumonia. Seen by Pulmonary, status post IV antibiotics including vancomycin and levofloxacin, sputum culture from 07/29 demonstrating MSSA -07/31 chest x-ray demonstrating improvement -s/p 14 days of liq Augmentin 4. Anemia of chronic kidney disease. Continue monitor hemoglobin level 5. Diabetes mellitus type 2 with hyperglycemia. Improved w/ uptitration of lantus, actos, ISS 6. Acute atelectasis. Encourage incentive spirometer 7. Hypertension. Chronic, reinitiated amlodipine 8. Acute Hyperkalemia. 2/2 ATN, downtrended 9. Acute hypoxic respiratory failure. Evidenced by SpO2 85% on 30% FiO2, requiring uptitration to 50-60% FiO2, w/ objective tachypnea (RR>22) and frothy secretions, indicating that it is 2/2 combination of pneumonia, atelectasis, mucous plugging and NOT the original procedure - weaned to FiO2 35% - completely reliant on trach for airway protection, CT confirmed correct placement - d/w Dr. Peterson and RT, secretions currently well managed, it is symptomatic cough which requires additional suction care 10. Superficial cephalic vein thrombosis on left upper extremity. Resulting in edema, elevate and warm compress, cont on dvt ppx but do not systemically anticoagulate as this is NOT a DVT 11. Acute chest pain. New problem, further w/u indicated. Duration 5 mins, resolved w/o intervention, suspect GERD in setting of advancing diet, but given his cephalic clot, PE possible as is ACS - EKG w/o ischemic findings, NSR (personally interpreted) - trop neg, cycle second level - start PPI daily, tums PRN - if reoccurs and patient is tachy or SOB, consider PE and either get VQ or empirically start hep gtt Diet. Peg tube Code. Full Prophylaxis. High risk patient, heparin subcu Disposition. Anticipated discharge uncertain, Inpt Rehab evaluating Subjective: left chest pain w/ limited SOB Objective: Vital Signs Temp Pulse Resp BP Pulse Ox 36.8 C 80 17 144/63 H 97 08/12/17 07:53 08/12/17 15:50 08/12/17 15:50 08/12/17 15:50 08/12/17 15:50 Laboratory Results 08/12/17 05:45 08/12/17 05:45 08/11/17 08/12/17 08/13/17 05:59 05:59 05:59 Intake Total 2362 1690 811 Output Total 1200 1200 500 Balance 1162 490 311 - Physical Exam Constitutional: no apparent distress, not in pain, obese, No uncomfortable Ears, Nose, Mouth, Throat: other (trach and collar in place) Cardiovascular: regular rate and rhythym, no murmur, rub, or gallop, No tachycardia Respiratory: no respiratory distress, no rales or rhonchi, clear to auscultation Gastrointestinal: normoactive bowel sounds, soft, non-tender abdomen, no palpable masses Skin: warm, No abrasion, No erythema (at port site), No induration Neurologic: AAOx3, sensation intact bilaterally Psychiatric: interacting appropriately, not anxious, not encephalopathic, thought process linear ICD10 Worksheet Patient Problems: Problems Problem Status Onset Carcinoma of base of tongue Acute
[2017-08-12] MEDS ORDERED: AMOX/CLAVULANATE 500/125 MG TAB PO SCH (21:00)
[2017-08-12] MEDS: LORazepam 1 MG/0.5 ML UDSYR PO PRN (21:06)
[2017-08-12] MEDS: METOPROLOL TARTRATE 25 MG TAB PO SCH (21:07)
[2017-08-12] MEDS: INSULIN GLARGINE 100 UNITS/ML UNIT SC SCH (21:08)
[2017-08-12] MEDS: SENNOSIDES 17.6 MG/10 ML UDL PO SCH (21:19)
[2017-08-13] MEDS: INSULIN REGULAR HUMAN 100 UNIT/ML UNIT SC SCH (00:25)
[2017-08-13] MEDS: HEPARIN 5,000 UNIT/0.5 ML SYR SC SCH ×3 (06:10→21:12)
[2017-08-13] MEDS: PIOGLITAZONE HCL 15 MG TAB PO SCH (08:24)
[2017-08-13] MEDS: hydrALAZINE 25 MG TAB PO SCH ×3 (08:25→21:12)
[2017-08-13] MEDS: PANTOPRAZOLE SODIUM 40 MG TAB PO SCH (08:25)
[2017-08-13] MEDS: ALLOPURINOL 300 MG TAB PO SCH (08:25)
[2017-08-13] MEDS: METOPROLOL TARTRATE 25 MG TAB PO SCH ×2 (08:25→21:12)
[2017-08-13] MEDS: SENNOSIDES 17.6 MG/10 ML UDL PO SCH ×2 (08:26→21:19)
[2017-08-13] MEDS: MULTIVIT/MINERAL/FERR GLUC 15 ML UDL PO SCH (08:29)
[2017-08-13] MEDS ORDERED: FUROSEMIDE 40 MG/4 ML VIAL IVP ONE (10:12)
--- NOTE | 2017-08-13 10:15 | SOAPPROG ---
SOAP Progress Note Assessment/Plan: Assessment/Plan: DALY on CKD 4: pt with baseline diabetic nephropathy with baseline Cr of 2.5-3.0 , likely has ATN. Cr seems to have peaked at 3.8 and now is stable back at baseline at 2.6. Nonoliguric, lytes ok. - No need for HD. - Will continue to monitor. - Avoid hypotension and nephrotoxins. HTN: BP ok on current meds, will continue to monitor. Hypervolemia: will give another dose of Lasix today and continue to monitor. Anemia: pt getting weekly epo, last dose on 08/09/17. Subjective: No acute events overnight. Pt states that his breathing is fair today, had good UOP after Lasix yesterday. Objective: Vital Signs Temp Pulse Resp BP Pulse Ox 36.7 C 70 19 150/52 H 92 08/13/17 08:00 08/13/17 08:25 08/13/17 08:00 08/13/17 08:25 08/13/17 08:00 Laboratory Results 08/13/17 04:45 08/13/17 04:45 08/12/17 08/13/17 08/14/17 05:59 05:59 05:59 Intake Total 1690 1841 Output Total 1200 2175 Balance 490 -334 General: alert and oriented, no acute distress Eyes: EOMI, PERRL OP: Clear CV: RRR Resp: mildly labored respirations, trached Abd; Soft, NT Ext: +2 edema BLE Neuro: CN II-XII grossly intact ICD10 Worksheet Patient Problems: Problems Problem Status Onset Carcinoma of base of tongue Acute
--- NOTE | 2017-08-13 14:32 | SOAPPROG ---
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 Likely changing 2 chemotherapy regime once every 3 weeks * Status post tracheostomy secondary to airway obstruction. The extra long tube is in good position. This is a cuffed hyper flux Portex Bivona with adjust ability. -tracheostomy tube in good position. * Cough: Secondary to irritation from the tube and from secretions. -Intermittent lidocaine seems to be helping. * MSSA positive sputum. No sima pneumonia, more consistent with bronchitis. Chest x-ray shows hypoventilatory changes with some basilar atelectasis. -continue oral Augmentin * Nutrition: Now on orals. -will wean off tube feeds * Anemia. Hematocrit 27. Multifactorial. No evidence of bleeding. * Chronic renal failure. Creatinine 2.7 today, improved. Being followed by Renal. * DVT prophylaxis: Subcu heparin. GI prophylaxis: None needed, being fed gastric via PEG. * PT/OT-start ambulating in the halls without problem. * Out of bed * Disposition-possible rehab Subjective: Up ambulating with physical therapy. Doing well. Cough is improved. Objective: Vital Signs Temp Pulse Resp BP Pulse Ox 36.7 C 70 19 150/52 H 92 08/13/17 08:00 08/13/17 08:25 08/13/17 08:00 08/13/17 08:25 08/13/17 08:00 Laboratory Results 08/13/17 04:45 08/13/17 04:45 08/12/17 08/13/17 08/14/17 05:59 05:59 05:59 Intake Total 1690 1841 Output Total 1200 2175 Balance 490 -334 - Time Spent With Patient Time Spent With Patient: 25 min of time spent with patient, over 1/2 involved with coordination of care or counseling Case discussed with respiratory therapy and nursing Physical Exam - Physical Exam General Appearance: WD/WN, alert, No mild distress EENT: PERRL/EOMI Neck: non-tender, other (Tracheostomy tube site clean and dry) Respiratory: rhonchi (Few), No respiratory distress Cardiac/Chest: normal peripheral pulses, regular rate, rhythm Peripheral Pulses: 2+: carotid (R), carotid (L), femoral (R), femoral (L), dorsalis-pedis (R), dorsalis-pedis (L) Abdomen: normal bowel sounds, non-tender, soft Male Genitalia: deferred Rectal: deferred Skin: normal color, warm/dry Neuro/Psych: no motor/sensory deficits, alert, normal mood/affect, oriented x 3 ICD10 Worksheet Patient Problems: Problems Problem Status Onset Carcinoma of base of tongue Acute
--- NOTE | 2017-08-13 15:54 | SOAPPROG ---
SOAP Progress Note Assessment/Plan: Assessment: 1. Base of tongue cancer. locally advanced with clinically positive nodes (T3N2) , but has not been staged radiographically 2. s/p trach to protect airway 3. chronic renal insufficiency 4. anemia due to #3 Plan: - will continue to get weekly carbo/taxol to cytoreduce tumor prior to RT. Next due WedAugust 16 - can consider changing to q3 week chemotherapy for induction, rather than weekly, if that would help get him to a rehab. However, the risk of complications, particularly infection, is likely higher with the q3 week schedule. Decision re: rehab still pending. - can get PET-CT for staging as outpatient 30 min spent w/ pt and in coordination of care. d/w dr baires and dr montero. 08/13/17 15:54 Subjective: cough improved. frustrated with being in the hospital. Objective: exam: breathing comfortably. otherwise exam unchanged Vital Signs Temp Pulse Resp BP Pulse Ox 36.7 C 70 19 157/73 H 92 08/13/17 08:00 08/13/17 08:25 08/13/17 08:00 08/13/17 14:41 08/13/17 08:00 Laboratory Results 08/13/17 04:45 08/13/17 04:45 08/12/17 08/13/17 08/14/17 05:59 05:59 05:59 Intake Total 0034 4208 Output Total 1678 7756 Balance 490 -851 ICD10 Worksheet Patient Problems: Problems Problem Status Onset Carcinoma of base of tongue Acute
--- NOTE | 2017-08-13 17:58 | HOSPPROG ---
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 Status post airway stabilization with tracheostomy, dietary stabilization with PEG tube, initiated on carbo/taxol - appreciate ongoing oncology consultation, next dose of carbo/taxol 08/16 - d/w Dr. Peterson and Dr. Huitron at length, possible option includes q3week carbo/taxol (dose on 08/15) or q1week carbo/taxol, and since it is uncertain whether patient will qualify for IPR, best course of action at this time is continue the lower dosage on 08/15 which he has been able to tolerate, and revisit plan w/ IPR on 08/16 2. Acute tubular necrosis on CKD Stage IV. Patient experienced ATN with peak creatinine 3.8, most likely hemodynamically mediated in the setting of chronic kidney disease stage 4 with baseline creatinine 2.5-3.0 -appreciate ongoing nephrology consultation, Cr downtrended to 2.6 -continue monitor creatinine level and urine output 3. Aspiration pneumonia. Seen by Pulmonary, status post IV antibiotics including vancomycin and levofloxacin, sputum culture from 07/29 demonstrating MSSA -07/31 chest x-ray demonstrating improvement -s/p 14 days of liq Augmentin 4. Anemia of chronic kidney disease. Continue monitor hemoglobin level 5. Diabetes mellitus type 2 with hyperglycemia. Improved w/ uptitration of lantus, actos, ISS 6. Acute atelectasis. Encourage incentive spirometer 7. Hypertension. Chronic, reinitiated amlodipine 8. Acute Hyperkalemia. 2/2 ATN, downtrended 9. Acute hypoxic respiratory failure. Evidenced by SpO2 85% on 30% FiO2, requiring uptitration to 50-60% FiO2, w/ objective tachypnea (RR>22) and frothy secretions, indicating that it is 2/2 combination of pneumonia, atelectasis, mucous plugging and NOT the original procedure - weaned to FiO2 35% - completely reliant on trach for airway protection, CT confirmed correct placement - d/w Dr. Peterson and RT, secretions currently well managed, it is symptomatic cough which requires additional suction care 10. Superficial cephalic vein thrombosis on left upper extremity. Resulting in edema, elevate and warm compress, cont on dvt ppx but do not systemically anticoagulate as this is NOT a DVT 11. Acute chest pain. Likely 2/2 GERD, no recurrence, PORT site CDI Diet. Peg tube Code. Full Prophylaxis. High risk patient, heparin subcu Disposition. Anticipated discharge uncertain, Inpt Rehab evaluating Subjective: patient denies any current pain, attempting to keep arm elevated Objective: Vital Signs Temp Pulse Resp BP Pulse Ox 36.3 C 79 12 157/73 H 98 08/13/17 16:00 08/13/17 16:00 08/13/17 16:00 08/13/17 16:00 08/13/17 16:00 Laboratory Results 08/13/17 04:45 08/13/17 04:45 08/12/17 08/13/17 08/14/17 05:59 05:59 05:59 Intake Total 1690 1841 400 Output Total 1200 2175 1100 Balance 490 -334 -700 - Physical Exam Constitutional: no apparent distress, not in pain, obese, No uncomfortable Ears, Nose, Mouth, Throat: other (trach/collar in place) Cardiovascular: regular rate and rhythym, no murmur, rub, or gallop, edema ( bilat UE/LE) Respiratory: no respiratory distress, no rales or rhonchi, clear to auscultation Gastrointestinal: normoactive bowel sounds, soft, non-tender abdomen, no palpable masses, No distension Skin: other (port site w/o erythema/tenderness/induration/ecchymoses) Neurologic: AAOx3 Psychiatric: interacting appropriately, not anxious, not encephalopathic, thought process linear ICD10 Worksheet Patient Problems: Problems Problem Status Onset Carcinoma of base of tongue Acute
[2017-08-13] MEDS: INSULIN GLARGINE 100 UNITS/ML UNIT SC SCH (21:12)
[2017-08-13] MEDS: LORazepam 1 MG/0.5 ML UDSYR PO PRN (21:13)
[2017-08-14] MEDS: HEPARIN 5,000 UNIT/0.5 ML SYR SC SCH ×3 (05:10→22:08)
[2017-08-14] MEDS: MULTIVIT/MINERAL/FERR GLUC 15 ML UDL PO SCH (08:06)
[2017-08-14] MEDS: PIOGLITAZONE HCL 15 MG TAB PO SCH (08:07)
[2017-08-14] MEDS: ALLOPURINOL 300 MG TAB PO SCH (08:07)
[2017-08-14] MEDS: METOPROLOL TARTRATE 25 MG TAB PO SCH ×2 (08:07→22:07)
[2017-08-14] MEDS: hydrALAZINE 25 MG TAB PO SCH ×3 (08:07→22:07)
[2017-08-14] MEDS: PANTOPRAZOLE SODIUM 40 MG TAB PO SCH (08:07)
[2017-08-14] MEDS: SENNOSIDES 17.6 MG/10 ML UDL PO SCH ×2 (08:10→23:08)
[2017-08-14] MEDS ORDERED: FUROSEMIDE 40 MG/4 ML VIAL IVP ONE ×2 (08:26→10:45)
--- NOTE | 2017-08-14 08:41 | SOAPPROG ---
SOAP Progress Note Assessment/Plan: Assessment: DALY on CKD IV (baseline Cr 2.5-3) recently diagnosed with tongue cancer admitted for bx of tongue base and trach. Had probable aspiration PNA with severe hypoxia and DALY likely related to ATN. Cr now back down to previous baseline of 2.6. Now volume overloaded. Plan: 08/14/17 08:36 #DALY on CKD IV- resolved, Cr now back to baseline -CTM #Volume overload- responded well to dose of IV lasix on 08/13, negative 880mL *Another dose of 40mg IV lasix ordered for 08/14. Goal to keep patient negative 1 -1.5L over 24hrs. Ok to redose lasix in PM if does not look like he will meet diuresis goal # hyperkalemia- improved # metabolic alkalosis- ?possibly some compensation for a respiratory acidosis vs. 2/2 diuresis -NOT on bicarb replacement -no need to check blood gas at this point -CTM *Replace K conservatively if <3.5 # Hypertension- at goal # Anemia- Hgb below goal -Getting weekly Epo *If Hgb drops below 7, will need to consider transfusion 08/14/17 08:45 08/14/17 08:46 Subjective: No acute events overnight, patient feeling ok this morning. Reports swelling, denies shortness of breath Objective: Vital Signs Temp Pulse Resp BP Pulse Ox 36.5 C 74 21 H 126/63 H 98 08/14/17 07:53 08/14/17 08:07 08/14/17 07:53 08/14/17 08:07 08/14/17 07:53 Laboratory Results 08/14/17 04:50 08/14/17 04:50 08/13/17 08/14/17 08/15/17 05:59 05:59 05:59 Intake Total 1841 1470 Output Total 4175 0870 Balance -334 -880 Exam: General: awake, alert, well-appearing, sitting in chair on trach collar ENT: trach in place on trach collar, MMM Pulm: anterior lung mena CTAB, breathing comfortably on trach collar CV: NRRR, no g/m/r, + anasarca Extremities: + anasarca Neuro: CNII-XII grossly intact, moves all extremities ICD10 Worksheet Patient Problems: Problems Problem Status Onset Carcinoma of base of tongue Acute
[2017-08-14] MEDS ORDERED: HYDROCOD/APAP 7.5/325 IN 15ML UDCUP PO PRN (09:12)
--- NOTE | 2017-08-14 09:29 | SOAPPROG ---
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 Likely changing 2 chemotherapy regime once every 3 weeks * Status post tracheostomy secondary to airway obstruction. The extra long tube is in good position. This is a cuffed hyper flux Portex Bivona with adjust ability. -tracheostomy tube in good position. * Cough: Secondary to irritation from the tube and from secretions. -Intermittent lidocaine seems to be helping. * MSSA positive sputum. No sima pneumonia, more consistent with bronchitis. Chest x-ray shows hypoventilatory changes with some basilar atelectasis. -stop antibiotic * Nutrition: Now on orals. -will wean off tube feeds * Anemia. Hematocrit 27. Multifactorial. No evidence of bleeding. * Chronic renal failure. Creatinine 2.7 today, improved. Being followed by Renal. * DVT prophylaxis: Subcu heparin. GI prophylaxis: None needed, being fed gastric via PEG. * PT/OT-ambulating well on the halls * Out of bed * Disposition-getting rehabilitation evaluation Subjective: Resting comfortably. Objective: Vital Signs Temp Pulse Resp BP Pulse Ox 36.5 C 74 21 H 126/63 H 98 08/14/17 07:53 08/14/17 08:07 08/14/17 07:53 08/14/17 08:07 08/14/17 07:53 Laboratory Results 08/14/17 04:50 08/14/17 04:50 08/13/17 08/14/17 08/15/17 05:59 05:59 05:59 Intake Total 1841 1470 Output Total 2175 2350 Balance -334 -880 Laboratory Results 08/14/17 04:50 08/14/17 04:50 08/14/17 08/13/17 08/13/17 04:50 11:27 08:17 POC Glucose 152 mg/dL H mg/dL 152 mg/dL H mg/dL (70 - 100) (70 - 100) Calcium 8.4 mg/dL L mg/dL (8.5 - 10.4) Phosphorus 3.3 mg/dL mg/dL (2.5 - 4.5) Albumin 2.6 g/dL L g/dL (3.5 - 5.0) 08/13/17 08/12/17 08/12/17 04:45 20:58 05:45 POC Glucose 162 mg/dL H mg/dL (70 - 100) Calcium 8.5 mg/dL mg/dL 8.5 mg/dL mg/dL (8.5 - 10.4) (8.5 - 10.4) Phosphorus 3.7 mg/dL mg/dL 3.9 mg/dL mg/dL (2.5 - 4.5) (2.5 - 4.5) Albumin 2.7 g/dL L g/dL 2.7 g/dL L g/dL (3.5 - 5.0) (3.5 - 5.0) 08/11/17 05:27 POC Glucose Calcium 8.0 mg/dL L mg/dL (8.5 - 10.4) Phosphorus 4.4 mg/dL mg/dL (2.5 - 4.5) Albumin 2.6 g/dL L g/dL (3.5 - 5.0) - Time Spent With Patient Time Spent With Patient: 25 min time spent with patient, over 1/2 involved coordination of care or counseling. Physical Exam - Physical Exam General Appearance: alert, no apparent distress EENT: PERRL/EOMI, normal ENT inspection Neck: non-tender, other (Trach site okay) Respiratory: crackles (Basilar), No respiratory distress, No wheezing Cardiac/Chest: normal peripheral pulses, regular rate, rhythm, systolic murmur Peripheral Pulses: 2+: carotid (R), carotid (L), femoral (R), femoral (L), dorsalis-pedis (R), dorsalis-pedis (L) Abdomen: normal bowel sounds, non-tender, soft Male Genitalia: deferred Rectal: deferred Skin: normal color, warm/dry Extremities: non-tender Neuro/Psych: no motor/sensory deficits, alert, normal mood/affect, oriented x 3 ICD10 Worksheet Patient Problems: Problems Problem Status Onset Carcinoma of base of tongue Acute
[2017-08-14] MEDS: LIDOCAINE 1% 300 MG/30 ML SDV IH PRN (11:58)
--- NOTE | 2017-08-14 16:47 | ASMTCMCOM ---
CM Note CM Note Notes: Pt tx back to 1N. Per pt's , Arlene, Inpt Rehab had reached out to her yesterday and indicated they will consider pt. Pt will have chemo again on Wednesday. CM to follow. Date Signed: 08/14/2017 04:46 PM Electronically Signed By:Alanna Zamudio LCSW
--- NOTE | 2017-08-14 18:52 | HOSPPROG ---
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 Status post airway stabilization with tracheostomy, dietary stabilization with PEG tube, initiated on carbo/taxol - appreciate ongoing oncology consultation, next dose of carbo/taxol 08/16 - d/w patient and at length, counseled them that possible option includes q3week carbo/taxol (dose on 08/15) or q1week carbo/taxol, and since it is uncertain whether patient will qualify for IPR, best course of action at this time is continue the lower dosage on 08/15 which he has been able to tolerate, and revisit plan w/ IPR on 08/16, as it is unclear how long his rehab program will last 2. Acute tubular necrosis on CKD Stage IV. Patient experienced ATN with peak creatinine 3.8, most likely hemodynamically mediated in the setting of chronic kidney disease stage 4 with baseline creatinine 2.5-3.0 -appreciate ongoing nephrology consultation, Cr downtrended to 2.6 -continue monitor creatinine level and urine output 3. Aspiration pneumonia. Seen by Pulmonary, status post IV antibiotics including vancomycin and levofloxacin, sputum culture from 07/29 demonstrating MSSA -s/p 14 days of liq Augmentin 4. Anemia of chronic kidney disease. Continue monitor hemoglobin level 5. Diabetes mellitus type 2 with hyperglycemia. Improved w/ uptitration of lantus, actos, ISS 6. Acute atelectasis. Encourage incentive spirometer 7. Hypertension. Chronic, reinitiated amlodipine 8. Acute Hyperkalemia. 2/2 ATN, downtrended 9. Acute hypoxic respiratory failure. Evidenced by SpO2 85% on 30% FiO2, requiring uptitration to 50-60% FiO2, w/ objective tachypnea (RR>22) and frothy secretions, indicating that it is 2/2 combination of pneumonia, atelectasis, mucous plugging and NOT the original procedure - weaned to FiO2 35% - completely reliant on trach for airway protection, CT confirmed correct placement - d/w patient, , RT, secretions currently well managed, it is symptomatic cough which requires additional lidocaine, and patient's sensation of not being able to breath may be related to reduced flow w/ PMV, so PMV removed for patient to gauge effect 10. Superficial cephalic vein thrombosis on left upper extremity. Resulting in edema, elevate and warm compress, cont on dvt ppx but do not systemically anticoagulate as this is NOT a DVT 11. Acute chest pain. Likely 2/2 GERD, no recurrence, PORT site CDI Diet. Peg tube Code. Full Prophylaxis. High risk patient, heparin subcu Disposition. Anticipated discharge uncertain, Inpt Rehab evaluating Subjective: pt feels like every so often he cannot breath (inhale) and he has pervasive, self-limited coughing episodes Objective: Vital Signs Temp Pulse Resp BP Pulse Ox 36.9 C 76 16 138/64 H 95 08/14/17 14:00 08/14/17 17:00 08/14/17 17:00 08/14/17 16:18 08/14/17 17:00 Laboratory Results 08/14/17 04:50 08/14/17 04:50 08/13/17 08/14/17 08/15/17 05:59 05:59 05:59 Intake Total 1841 1470 Output Total 2173 6500 500 Balance -334 -880 -500 - Time Spent With Patient Time Spent with Patient: greater than 35 minutes Time Spent with Patient: Greater than 35 minutes spent on this patients care, greater than 50% of time spent counseling, educating, and coordinating care regarding the above mentioned plan. - Physical Exam Constitutional: obese, uncomfortable Cardiovascular: regular rate and rhythym, no murmur, rub, or gallop, edema ( diffuse) Respiratory: no rales or rhonchi, clear to auscultation, other (coughing spells which are self-limited but protracted) Gastrointestinal: normoactive bowel sounds, soft, non-tender abdomen, no palpable masses Neurologic: AAOx3 Psychiatric: interacting appropriately, not anxious, not encephalopathic, thought process linear, flat affect ICD10 Worksheet Patient Problems: Problems Problem Status Onset Carcinoma of base of tongue Acute
[2017-08-14] MEDS: LORazepam 1 MG/0.5 ML UDSYR PO PRN (22:09)
[2017-08-14] MEDS: INSULIN GLARGINE 100 UNITS/ML UNIT SC SCH (22:20)
[2017-08-15] MEDS: HEPARIN 5,000 UNIT/0.5 ML SYR SC SCH ×3 (05:43→22:40)
[2017-08-15] MEDS: ONDANSETRON 4 MG/2 ML VIAL IVP PRN (09:03)
[2017-08-15] MEDS: hydrALAZINE 25 MG TAB PO SCH ×3 (10:33→22:41)
[2017-08-15] MEDS: METOPROLOL TARTRATE 25 MG TAB PO SCH ×2 (10:33→22:41)
[2017-08-15] MEDS: PANTOPRAZOLE SODIUM 40 MG TAB PO SCH (10:34)
[2017-08-15] MEDS: ALLOPURINOL 300 MG TAB PO SCH (10:34)
[2017-08-15] MEDS: SENNOSIDES 17.6 MG/10 ML UDL PO SCH ×2 (10:42→22:42)
--- NOTE | 2017-08-15 10:43 | SOAPPROG ---
SOAP Progress Note Assessment/Plan: Assessment: SOAP Progress Note Assessment/Plan: Assessment: 1. Base of tongue cancer. locally advanced with clinically positive nodes (T3N2) , but has not been staged radiographically 2. s/p trach to protect airway 3. chronic renal insufficiency 4. anemia due to #3 Plan: - continue weekly carbo/taxol to cytoreduce tumor prior to RT. Will give second dose today. - can consider changing to q3 week chemotherapy for induction, rather than weekly, if that would help get him to a rehab. However, the risk of complications, particularly infection, is likely higher with the q3 week schedule. - can get PET-CT for staging as outpatient Subjective: eager to receive chemo today. mild nausea, but relieved with antiemetics Objective: Vital Signs Temp Pulse Resp BP Pulse Ox 36.6 C 80 22 H 141/77 H 95 08/15/17 08:19 08/15/17 08:19 08/15/17 08:19 08/15/17 08:19 08/15/17 08:19 Laboratory Results 08/14/17 04:50 08/14/17 04:50 08/14/17 08/15/17 08/16/17 05:59 05:59 05:59 Intake Total 1470 700 Output Total 2350 1328 Balance -880 -628 Physical Exam - Physical Exam General Appearance: alert, no apparent distress Neck: other (trach) Respiratory: lungs clear (anteriorly) Abdomen: non-tender, soft Extremities: pedal edema (2+, equal) Neuro/Psych: alert, normal mood/affect, oriented x 3 ICD10 Worksheet Patient Problems: Problems Problem Status Onset Carcinoma of base of tongue Acute
[2017-08-15] MEDS ORDERED: FUROSEMIDE 40 MG/4 ML VIAL IVP ONE (11:02)
--- NOTE | 2017-08-15 11:02 | SOAPPROG ---
SOAP Progress Note Assessment/Plan: Assessment: DALY on CKD IV (baseline Cr 2.5-3) recently diagnosed with tongue cancer admitted for bx of tongue base and trach. Had probable aspiration PNA with severe hypoxia and DALY likely related to ATN. Cr now back down to previous baseline of 2.6. Now with hypervolemia. Plan: 08/14/17 08:36 #DALY on CKD IV- resolved, Cr now back to baseline -CTM *AM labs pending #Volume overload- responded well to dose of IV lasix on 08/13, negative 880mL. It does not look like patient received 08/14 dose. *Another dose of 40mg IV lasix ordered for 08/15. Goal to keep patient negative 1 -1.5L over 24hrs. Ok to redose lasix in PM if does not look like he will meet diuresis goal # hyperkalemia- *AM labs pending # metabolic alkalosis- ?possibly some compensation for a respiratory acidosis vs. 2/2 diuresis -NOT on bicarb replacement -no need to check blood gas at this point -CTM *Replace K conservatively if <3.5 # Hypertension- at goal # Anemia- Hgb below goal -Getting weekly Epo *If Hgb drops below 7, will need to consider transfusion Subjective: Feels ok, denies shortness of breath. Eating ok Objective: Vital Signs Temp Pulse Resp BP Pulse Ox 36.6 C 80 22 H 141/77 H 95 08/15/17 08:19 08/15/17 08:19 08/15/17 08:19 08/15/17 08:19 08/15/17 08:19 Laboratory Results 08/14/17 04:50 08/14/17 04:50 08/14/17 08/15/17 08/16/17 05:59 05:59 05:59 Intake Total 1470 700 Output Total 2350 1328 Balance -880 -628 AM Labs pending Physical Exam - Physical Exam General Appearance: alert, no apparent distress EENT: other (trach with pauci manan valve in place and trach collar) Respiratory: lungs clear, normal breath sounds, other (trach with trach collar) Cardiac/Chest: regular rate, rhythm, edema (tense ) Abdomen: normal bowel sounds, non-tender Skin: normal color, warm/dry Extremities: swelling Neuro/Psych: normal mood/affect, oriented x 3 ICD10 Worksheet Patient Problems: Problems Problem Status Onset Carcinoma of base of tongue Acute
[2017-08-15] MEDS: MULTIVIT/MINERAL/FERR GLUC 15 ML UDL PO SCH (11:19)
[2017-08-15] MEDS: PIOGLITAZONE HCL 15 MG TAB PO SCH (11:19)
[2017-08-15] MEDS ORDERED: NS IV ONE ×2 (11:30→17:30)
[2017-08-15] MEDS ORDERED: DEXAMETHASONE SOD PHOSPHATE IV ONE (11:30)
[2017-08-15] MEDS ORDERED: DEXAMETHASONE 20 MG in D5W 50 ML IV ONE (11:30)
--- NOTE | 2017-08-15 13:54 | HOSPPROG ---
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 Status post airway stabilization with tracheostomy, dietary stabilization with PEG tube, initiated on carbo/taxol - appreciate ongoing oncology consultation, next dose of carbo/taxol 08/15 - ongoing IPR eval 2. Acute tubular necrosis on CKD Stage IV. Patient experienced ATN with peak creatinine 3.8, most likely hemodynamically mediated in the setting of chronic kidney disease stage 4 with baseline creatinine 2.5-3.0 -appreciate ongoing nephrology consultation, Cr downtrended to 2.6 -continue monitor creatinine level and urine output -currently hypervolemic and received IV lasix 40mg today, redose in PM if not net neg 3. Aspiration pneumonia. Seen by Pulmonary, status post IV antibiotics including vancomycin and levofloxacin, sputum culture from 07/29 demonstrating MSSA -s/p 14 days of liq Augmentin 4. Anemia of chronic kidney disease. Continue monitor hemoglobin level 5. Diabetes mellitus type 2 with hyperglycemia. Improved w/ uptitration of lantus, actos, ISS 6. Acute atelectasis. Encourage incentive spirometer 7. Hypertension. Chronic, reinitiated amlodipine 8. Acute Hyperkalemia. 2/2 ATN, downtrended 9. Acute hypoxic respiratory failure. Evidenced by SpO2 85% on 30% FiO2, requiring uptitration to 50-60% FiO2, w/ objective tachypnea (RR>22) and frothy secretions, indicating that it is 2/2 combination of pneumonia, atelectasis, mucous plugging and NOT the original procedure - weaned to FiO2 35% - completely reliant on trach for airway protection, CT confirmed correct placement - exp wheeze today, no prior hx of COPD, given lasix/duonebs and reassess, get CXR if o2 requirements increasing 10. Superficial cephalic vein thrombosis on left upper extremity. Resulting in edema, elevate and warm compress, cont on dvt ppx but do not systemically anticoagulate as this is NOT a DVT 11. Acute chest pain. Likely 2/2 GERD, no recurrence, PORT site CDI Diet. Peg tube Code. Full Prophylaxis. High risk patient, heparin subcu Disposition. Anticipated discharge uncertain, Inpt Rehab evaluating Subjective: no episodes of sudden SOB today, feels edematous Objective: Vital Signs Temp Pulse Resp BP Pulse Ox 36.6 C 69 18 141/77 H 92 08/15/17 08:19 08/15/17 11:31 08/15/17 11:31 08/15/17 08:19 08/15/17 11:31 Laboratory Results 08/14/17 04:50 08/15/17 13:00 08/14/17 08/15/17 08/16/17 05:59 05:59 05:59 Intake Total 1470 700 Output Total 2350 1328 Balance -880 -628 - Physical Exam Constitutional: no apparent distress, not in pain, chronically ill appearing, obese, uncomfortable Ears, Nose, Mouth, Throat: other (trach in place) Cardiovascular: regular rate and rhythym, no murmur, rub, or gallop, edema (2+ bilat LE, 1+ bilat UE), No irregularly irregular Respiratory: expiratory wheeze, other (insp wheeze anteriorly), No reduced air movement, No bronchial breath sounds, No respiratory distress Gastrointestinal: normoactive bowel sounds, soft, non-tender abdomen, no palpable masses, distension (mild, G-tube in place) Neurologic: AAOx3, sensation intact bilaterally, No weakness Psychiatric: interacting appropriately, not anxious, not encephalopathic, thought process linear ICD10 Worksheet Patient Problems: Problems Problem Status Onset Carcinoma of base of tongue Acute
[2017-08-15] MEDS ORDERED: FAMOTIDINE 20 MG/NACL 50 ML IV ONE (15:00)
[2017-08-15] MEDS ORDERED: ONDANSETRON HCL PF 8 MG, DEXAMETHASONE 10 MG in NS 50 ML IV ONE (15:00)
[2017-08-15] MEDS ORDERED: D5W IV ONE (15:30)
[2017-08-15] MEDS ORDERED: PACLITAXEL IV ONE (15:30)
[2017-08-15] MEDS: IPRATROPIUM/ALBUTEROL 3 ML DEYVIAL IH SCH ×2 (15:35→20:15)
--- NOTE | 2017-08-15 15:56 | ASMTCMCOM ---
CM Note CM Note Notes: Pt is having his second round of chemo today. Pt's DC options are limitd by the combination of traech and chemo. Pt and would prefer weekly chemo in the hopes that pt will no longer need traech. Going to inpt rehab is an option if they can take pt on chemo. SNFs and LTACs do not want to take. CM to follow. Date Signed: 08/15/2017 03:55 PM Electronically Signed By:Alanna Zamudio LCSW
[2017-08-15] MEDS ORDERED: CARBOPLATIN IV ONE (17:30)
[2017-08-15] MEDS: INSULIN GLARGINE 100 UNITS/ML UNIT SC SCH (22:40)
[2017-08-15] MEDS: LORazepam 1 MG/0.5 ML UDSYR PO PRN (22:41)
[2017-08-16] MEDS: IPRATROPIUM/ALBUTEROL 3 ML DEYVIAL IH SCH ×3 (01:21→10:11)
[2017-08-16 04:30] LABS: PLATELET COUNT 227 10^3/uL (150-400)
[2017-08-16] MEDS: HEPARIN 5,000 UNIT/0.5 ML SYR SC SCH ×3 (05:09→22:03)
[2017-08-16] MEDS: ALLOPURINOL 300 MG TAB PO SCH (09:58)
[2017-08-16] MEDS: MULTIVIT/MINERAL/FERR GLUC 15 ML UDL PO SCH (09:58)
[2017-08-16] MEDS: PANTOPRAZOLE SODIUM 40 MG TAB PO SCH (09:58)
[2017-08-16] MEDS: PIOGLITAZONE HCL 15 MG TAB PO SCH (09:59)
[2017-08-16] MEDS: hydrALAZINE 25 MG TAB PO SCH ×3 (10:01→22:03)
[2017-08-16] MEDS: METOPROLOL TARTRATE 25 MG TAB PO SCH ×2 (10:02→22:08)
[2017-08-16] MEDS: SENNOSIDES 17.6 MG/10 ML UDL PO SCH ×2 (10:19→22:04)
[2017-08-16] MEDS: EPOETIN ALFA 10,000 UNIT/ML VIAL SC SCH (11:34)
--- NOTE | 2017-08-16 12:29 | SOAPPROG ---
SOAP Progress Note Assessment/Plan: Assessment/Plan: 71 yo man w base of tongue ca, clinically advanced T3N2 getting induction w carbo/taxol 1. Head and neck ca - s/p trach, PEG, PORT finally doing better and out of unit tolerating po at this time needs induction chemo to cytoreduce C2 chemo given 08/15/2017 Needs PET/CT as outpt for complete staging 2. Deconditioning - looking into rehab and feasibility of getting trasnported for weekly chemo vs switching to Q3 week 3. Anemia - getting Procrit in hospital will cont as outpt 4. CKD- ATN in ICU, renal following 5. Asp PNA - s/p course of abx Dispo - pending dispo Subjective: No acute events gaining strength slowly Objective: Vital Signs Temp Pulse Resp BP Pulse Ox 36.7 C 69 18 128/60 H 98 08/16/17 07:12 08/16/17 10:20 08/16/17 10:20 08/16/17 10:02 08/16/17 10:20 Laboratory Results 08/16/17 03:45 08/16/17 03:55 08/15/17 08/16/17 08/17/17 05:59 05:59 05:59 Intake Total 700 1790 Output Total 1328 470 Balance -628 1320 Gen - Obese man, NAD HEENT - trach CV - RRR Abd - soft, NT, PEG intact Ext - 2+ bilateral LE edema ICD10 Worksheet Patient Problems: Problems Problem Status Onset Carcinoma of base of tongue Acute
--- NOTE | 2017-08-16 13:32 | HOSPPROG ---
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 Status post airway stabilization with tracheostomy, dietary stabilization with PEG tube, initiated on carbo/taxol - appreciate ongoing oncology consultation, weekly dose of carbo/taxol 08/01, currently on qWeekly schedule - counseled patient and his that Inpt Rehab is continuing to review his case to determine the duration of likely therapy, whether they can facilitate once weekly chemo at [facility], and Dr. Moctezuma/Dr. Gallegos will collaborate as to the best way for the patient to get rehab (and improve his performance status) while also getting chemo (low dose can be performed qWeekly OR high dose can be performed [id number]) - also counseled that her concerns about physical assist at home shall continue to be the focus of our therapy sessions here, as well as his next care location, so as to enable transition home once deemed physically safe 2. Acute tubular necrosis on CKD Stage IV. Patient experienced ATN with peak creatinine 3.8, most likely hemodynamically mediated in the setting of chronic kidney disease stage 4 with baseline creatinine 2.5-3.0 -appreciate ongoing nephrology consultation, Cr uptrended to 3.2 today s/p IV lasix 08/15 -continue monitor creatinine level and urine output -d/w Dr. Melton, she will assess patient and determine whether to give lasix today , appears hypervolemic on physical exam 3. Aspiration pneumonia. Seen by Pulmonary, status post IV antibiotics including vancomycin and levofloxacin, sputum culture from 07/29 demonstrating MSSA -s/p 14 days of liq Augmentin 4. Anemia of chronic kidney disease. Continue monitor hemoglobin level 5. Diabetes mellitus type 2 with hyperglycemia. Improved w/ uptitration of lantus, actos, ISS 6. Acute atelectasis. Encourage incentive spirometer 7. Hypertension. Chronic, reinitiated amlodipine w/ success 8. Acute Hyperkalemia. 2/2 ATN, downtrended 9. Acute hypoxic respiratory failure. Evidenced by SpO2 85% on 30% FiO2, requiring uptitration to 50-60% FiO2, w/ objective tachypnea (RR>22) and frothy secretions, indicating that it is 2/2 combination of pneumonia, atelectasis, mucous plugging and NOT the original procedure - weaned to FiO2 35% - completely reliant on trach for airway protection, CT confirmed correct placement - exp wheeze improved today, will adjust nebs to PRN, cont to attempt diuresis 10. Superficial cephalic vein thrombosis on left upper extremity. Resulting in edema, elevate and warm compress, cont on dvt ppx but do not systemically anticoagulate as this is NOT a DVT 11. Acute chest pain. Likely 2/2 GERD, no recurrence, PORT site CDI Diet. Peg tube Code. Full Prophylaxis. High risk patient, heparin subcu Disposition. Anticipated discharge uncertain, Inpt Rehab evaluating Subjective: patient w/ more energy, getting bored, required some assist w/ trach tubing on ambulation Objective: Vital Signs Temp Pulse Resp BP Pulse Ox 36.7 C 69 18 128/60 H 98 08/16/17 07:12 08/16/17 10:20 08/16/17 10:20 08/16/17 10:02 08/16/17 10:20 Laboratory Results 08/16/17 03:45 08/16/17 03:55 08/15/17 08/16/17 08/17/17 05:59 05:59 05:59 Intake Total 700 1790 Output Total 1328 470 Balance -628 1320 - Time Spent With Patient Time Spent with Patient: greater than 35 minutes Time Spent with Patient: Greater than 35 minutes spent on this patients care, greater than 50% of time spent counseling, educating, and coordinating care regarding the above mentioned plan. - Physical Exam Constitutional: no apparent distress, not in pain, obese, No uncomfortable Ears, Nose, Mouth, Throat: other (trach in place) Cardiovascular: regular rate and rhythym, no murmur, rub, or gallop, edema (1+ bilat UE/LE) Respiratory: other (insp wheeze, less exp wheeze today) Gastrointestinal: normoactive bowel sounds, soft, non-tender abdomen, no palpable masses, distension (mild, PEG in place) Neurologic: AAOx3 Psychiatric: interacting appropriately, not anxious, not encephalopathic, thought process linear ICD10 Worksheet Patient Problems: Problems Problem Status Onset Carcinoma of base of tongue Acute
--- NOTE | 2017-08-16 15:15 | ASMTCMCOM ---
CM Note CM Note Notes: Per Hospitalist, Oncology and Rehab to discuss treatment plan. Hopefully the patient may be able to go to inpt rehab for period of time. He is making progress. Still has a trach and is now off feeding via peg tube. Reviewed dc POC with patient and his . CM to follow. Disposition to inpatient rehab. Date Signed: 08/16/2017 03:14 PM Electronically Signed By:Aida Aparicio RN
--- NOTE | 2017-08-16 16:36 | SOAPPROG ---
SOAP Progress Note Assessment/Plan: Assessment/Plan: DALY on CKD 4: pt with baseline diabetic nephropathy with baseline Cr of 2.5-3.0 , likely has ATN. Cr seems to have peaked at 3.8 and came down to 2.6-2.7, today is up to 3.2. Nonoliguric, lytes ok. - No need for HD. - Will hold Lasix today and continue to monitor. We discussed today that the tradeoff for euvolemia is azotemia. - Will continue to monitor. - Avoid hypotension and nephrotoxins. HTN: BP ok on current meds, will continue to monitor. Hypervolemia: improving but still has a lot of extra fluid. With increase in Cr today, will hold dose of Lasix today and continue to monitor, likely will give Lasix tomorrow. Anemia: pt getting weekly epo, last dose on 08/16/17. Subjective: No acute events overnight. Pt states that he still has swelling in his legs, which bothers him. His breathing feels comfortable this afternoon, he has been walking around more. Objective: Vital Signs Temp Pulse Resp BP Pulse Ox 36.9 C 66 20 128/58 H 92 08/16/17 15:10 08/16/17 15:10 08/16/17 15:10 08/16/17 15:16 08/16/17 15:10 Laboratory Results 08/16/17 03:45 08/16/17 03:55 08/15/17 08/16/17 08/17/17 05:59 05:59 05:59 Intake Total 700 1790 Output Total 1328 470 Balance -628 1320 General: alert and oriented, no acute distress Eyes: EOMI, PERRL OP: Clear Neck: trached CV: RRR, +2 edema BLE but improved from last week Resp: CTA bilat, nonlabored respirations Abd: Soft, NT Neuro: CN II-XII grossly intact, no asterixis Psych: cooperative, appropriate mood and affect ICD10 Worksheet Patient Problems: Problems Problem Status Onset Carcinoma of base of tongue Acute
[2017-08-16] MEDS: INSULIN GLARGINE 100 UNITS/ML UNIT SC SCH (22:04)
[2017-08-17] MEDS: LORazepam 1 MG/0.5 ML UDSYR PO PRN ×2 (01:15→21:13)
[2017-08-17] MEDS: HEPARIN 5,000 UNIT/0.5 ML SYR SC SCH ×3 (05:22→21:11)
[2017-08-17 06:36] LABS: PLATELET COUNT 185 10^3/uL (150-400)
[2017-08-17] MEDS: PANTOPRAZOLE SODIUM 40 MG TAB PO SCH (09:27)
[2017-08-17] MEDS: METOPROLOL TARTRATE 25 MG TAB PO SCH ×2 (09:27→21:12)
[2017-08-17] MEDS: ALLOPURINOL 300 MG TAB PO SCH (09:27)
[2017-08-17] MEDS: PIOGLITAZONE HCL 15 MG TAB PO SCH (09:28)
[2017-08-17] MEDS: hydrALAZINE 25 MG TAB PO SCH ×3 (09:32→21:12)
[2017-08-17] MEDS: SENNOSIDES 1 TAB PO SCH ×2 (09:32→21:12)
[2017-08-17] MEDS: MULTIVITAMINS 1 EACH TAB PO SCH (09:32)
[2017-08-17] MEDS: MULTIVIT/MINERAL/FERR GLUC 15 ML UDL PO SCH (09:40)
[2017-08-17] MEDS: SENNOSIDES 17.6 MG/10 ML UDL PO SCH (09:40)
--- NOTE | 2017-08-17 11:49 | SOAPPROG ---
SOAP Progress Note Assessment/Plan: Assessment/Plan: DALY on CKD 4: pt with baseline diabetic nephropathy with baseline Cr of 2.5-3.0 , likely has ATN. Cr seems to have peaked at 3.8 and came down to 2.6-2.7, today is up again to 3.8. Nonoliguric, lytes ok. - No need for HD. - Will give Lasix IV x1 today after PRBC transfusion. We discussed that the tradeoff for euvolemia is azotemia. - Will recheck urine studies today. - Will continue to monitor. - Avoid hypotension and nephrotoxins. HTN: BP ok on current meds, will continue to monitor. Hypervolemia: still has a lot of extra fluid. Giving Lasix after transfusion today, will continue to monitor. Anemia: pt getting weekly epo, last dose on 08/16/17. Hgb down to 6.9 today, getting PRBCs transfused later today. Subjective: No acute events overnight. Pt still quite swollen, had less UOP overnight. He is breathing comfortably and continues to walk around. Objective: Vital Signs Temp Pulse Resp BP Pulse Ox 36.7 C 61 14 129/67 H 95 08/17/17 11:36 08/17/17 11:36 08/17/17 11:36 08/17/17 11:36 08/17/17 11:36 Laboratory Results 08/17/17 05:25 08/17/17 05:25 08/16/17 08/17/17 08/18/17 05:59 05:59 05:59 Intake Total 1790 130 450 Output Total 470 520 Balance 1320 -390 450 General: alert and oriented, no acute distress Eyes: EOMI, PERRL OP: Clear CV: RRR Resp: trached, nonlabored respirations Abd: Soft, NT Ext: +2 edema BLE Neuro; CN II-XII grossly intact, no asterixis Psych; cooperative, appropriate mood and affect ICD10 Worksheet Patient Problems: Problems Problem Status Onset Carcinoma of base of tongue Acute
--- NOTE | 2017-08-17 12:21 | SOAPPROG ---
SOAP Progress Note Assessment/Plan: Assessment/Plan: 71 yo man w base of tongue ca, clinically advanced T3N2 getting induction w carbo/taxol 1. Head and neck ca - SCC, HPV negative s/p trach, PEG, PORT finally doing better and out of unit tolerating po at this time needs induction chemo to cytoreduce C2 chemo given 08/15/2017 will need RT +/- cetuximab after induction (not a cisplatin candidate given GFR) Needs PET/CT as outpt for complete staging 2. Deconditioning - will need rehab; Discussed w Dr Loredo re: feasibility of getting transported for weekly chemo 3. Anemia - getting Procrit in hospital will cont as outpt will given 1unit PRBC today given Hgb of 6.9 4. CKD- ATN in ICU, renal following Increasing lasix today 5. Asp PNA - s/p course of abx Dispo - pending dispo 08/17/17 12:16 08/17/17 12:21 08/17/17 12:23 Subjective: No acute events denies new complaints Objective: Vital Signs Temp Pulse Resp BP Pulse Ox 36.7 C 61 14 129/67 H 95 08/17/17 11:36 08/17/17 11:36 08/17/17 11:36 08/17/17 11:36 08/17/17 11:36 Laboratory Results 08/17/17 05:25 08/17/17 05:25 08/16/17 08/17/17 08/18/17 05:59 05:59 05:59 Intake Total 1790 130 450 Output Total 470 520 Balance 1320 -390 450 Gen - NAD HEENT - anicteric, OP clear, trach intact CV - RRR Lung - occasional wheeze abd - obese, soft, NT Ext - bilateral edema ICD10 Worksheet Patient Problems: Problems Problem Status Onset Carcinoma of base of tongue Acute
--- NOTE | 2017-08-17 12:35 | HOSPPROG ---
Hospitalist Progress Note Assessment/Plan: #Normocytic anemia: transfuse 1 unit RBC followed by lasix #Volume overload: will give small dose lasix today with blood #Acute on CKD: renal following. Holding nephrotoxins #Head/neck cancer -last chemo 08/15. Will need chemo to cytoreduce #Deconditioning: inpatient rehab evaluating and will likely accept #Aspiration PNA: s/p abx #DALY on CKD: due to ATN #DM 2: Glargine, Actos. Add low-dose SSI; monitor closely with DALY #HTN: home meds #Acute hypoxic resp failure: trach #Superficial cephalic vein: warm compresses. No NSAIDs # Subjective: hands swollen, denies dizziness Objective: Vital Signs Temp Pulse Resp BP Pulse Ox 36.7 C 61 14 129/67 H 95 08/17/17 11:36 08/17/17 11:36 08/17/17 11:36 08/17/17 11:36 08/17/17 11:36 Laboratory Results 08/17/17 05:25 08/17/17 05:25 08/16/17 08/17/17 08/18/17 05:59 05:59 05:59 Intake Total 1790 130 450 Output Total 470 520 Balance 1320 -390 450 - Physical Exam Constitutional: no apparent distress Eyes: PERRL Ears, Nose, Mouth, Throat: moist mucous membranes Cardiovascular: regular rate and rhythym, edema (+2 legs, BL) Respiratory: no respiratory distress Gastrointestinal: normoactive bowel sounds Skin: warm Musculoskeletal: full muscle strength, other (Left hand swollen) Neurologic: AAOx3, CN II-XII Intact Psychiatric: interacting appropriately ICD10 Worksheet Patient Problems: Problems Problem Status Onset Carcinoma of base of tongue Acute
[2017-08-17] MEDS ORDERED: FUROSEMIDE 40 MG/4 ML VIAL IVP ONE (15:00)
[2017-08-17] MEDS ORDERED: D50W 25 GM/50 ML VIAL IVP PRN (16:30)
[2017-08-17] MEDS: INSULIN LISPRO 100 UNIT/ML SC SCH (17:38)
[2017-08-17] MEDS: ONDANSETRON 4 MG/2 ML VIAL IVP PRN (17:42)
[2017-08-17] MEDS: INSULIN GLARGINE 100 UNITS/ML UNIT SC SCH (21:13)
[2017-08-18] MEDS: HEPARIN 5,000 UNIT/0.5 ML SYR SC SCH ×3 (05:46→22:00)
[2017-08-18] MEDS: INSULIN LISPRO 100 UNIT/ML SC SCH ×3 (08:27→17:48)
[2017-08-18] MEDS: METOPROLOL TARTRATE 25 MG TAB PO SCH ×2 (09:12→21:59)
[2017-08-18] MEDS: ALLOPURINOL 300 MG TAB PO SCH (09:12)
[2017-08-18] MEDS: MULTIVITAMINS 1 EACH TAB PO SCH (09:12)
[2017-08-18] MEDS: hydrALAZINE 25 MG TAB PO SCH ×3 (09:13→21:59)
[2017-08-18] MEDS: PANTOPRAZOLE SODIUM 40 MG TAB PO SCH (09:13)
[2017-08-18] MEDS: PIOGLITAZONE HCL 15 MG TAB PO SCH (09:13)
[2017-08-18] MEDS: SENNOSIDES 1 TAB PO SCH (09:21)
--- NOTE | 2017-08-18 10:38 | HOSPPROG ---
Hospitalist Progress Note Assessment/Plan: 71 yo M w newly diagnosed tongue carcinoma, acute on chronic kidney failure, deconditioning Normocytic anemia: transfuse 1 unit RBC followed by lasix Volume overload: will give small dose lasix today with blood Acute on CKD: renal following. Holding nephrotoxins cr trending up suspect 2/2 diuresis repeat in AM Head/neck cancer last chemo 08/15. Will need chemo to cytoreduce Deconditioning: inpatient rehab evaluating and will likely accept Aspiration PNA: s/p abx DALY on CKD: due to ATN DM 2: Glargine, Actos. Add low-dose SSI; monitor closely with DALY HTN: Acute hypoxic resp failure: trach Superficial cephalic vein: warm compresses. No NSAIDs Subjective: case d/w dr beaver. cr up to 4.0 after diuresis Objective: Vital Signs Temp Pulse Resp BP Pulse Ox 36.8 C 63 18 151/68 H 93 08/18/17 08:50 08/18/17 08:50 08/18/17 08:50 08/18/17 08:50 08/18/17 08:50 Laboratory Results 08/18/17 05:40 08/18/17 05:40 08/17/17 08/18/17 08/19/17 05:59 05:59 05:59 Intake Total 130 1500 Output Total 520 600 320 Balance -390 900 -320 - Physical Exam Constitutional: no apparent distress, appears nourished Eyes: PERRL, anicteric sclera Ears, Nose, Mouth, Throat: moist mucous membranes, hearing normal Cardiovascular: regular rate and rhythym, no murmur, rub, or gallop, edema Respiratory: no respiratory distress, no rales or rhonchi Gastrointestinal: normoactive bowel sounds, soft, non-tender abdomen Genitourinary: no bladder fullness, No vasquez in urethra Skin: warm, normal color Musculoskeletal: full muscle strength, no muscle tenderness Neurologic: AAOx3 Psychiatric: interacting appropriately, not anxious Lymph, Heme, Immunologic: no cervical LAD ICD10 Worksheet Patient Problems: Problems Problem Status Onset Carcinoma of base of tongue Acute
[2017-08-18] MEDS: ONDANSETRON 4 MG/2 ML VIAL IVP PRN (12:46)
--- NOTE | 2017-08-18 14:26 | SOAPPROG ---
SOAP Progress Note Assessment/Plan: Assessment/Plan: 71 yo man w base of tongue ca, clinically advanced T3N2 getting induction w carbo/taxol 1. Head and neck ca - SCC, HPV negative locally advanced, non-resectable s/p trach, PEG, PORT finally doing better and out of unit tolerating po at this time on induction chemo to cytoreduce C2 chemo given 08/15/2017 C3 due 08/22 - orders written will need RT +/- cetuximab after induction (not a cisplatin candidate given GFR) Needs PET/CT as outpt for complete staging 2. Deconditioning - will need rehab; Discussed w Dr Loredo re: feasibility of getting transported for weekly chemo 3. Anemia - getting Procrit in hospital will cont as outpt will given 1unit PRBC 08/17 given Hgb of 6.9 4. CKD- ATN in ICU, renal following 5. Asp PNA - s/p course of abx Dispo - to rehab today or tomorrow 08/18/17 14:15 08/18/17 14:30 Subjective: No acute events Objective: Vital Signs Temp Pulse Resp BP Pulse Ox 36.4 C 67 20 158/71 H 90 L 08/18/17 11:54 08/18/17 11:54 08/18/17 11:54 08/18/17 11:54 08/18/17 13:43 Laboratory Results 08/18/17 05:40 08/18/17 05:40 08/17/17 08/18/17 08/19/17 05:59 05:59 05:59 Intake Total 130 1500 Output Total 520 600 320 Balance -390 900 -320 Gen - NAD HEENT - trach CV - RRR Lungs - coarse BS bilaterally Abd - obese, nontender Ext - 3+ edema ICD10 Worksheet Patient Problems: Problems Problem Status Onset Carcinoma of base of tongue Acute
--- NOTE | 2017-08-18 17:37 | SOAPPROG ---
SOAP Progress Note Assessment/Plan: Assessment: 1. DALY on CKD IV. Creat creeping up, now 4.0. Likely atn. Await plateau/recovery. 2. CKD IV. Likely diabetic nephropathy. Nephrotic. B/l creat ~2.6-2.7. 3. HTN. Generally decent control. On amlodipine, metoprolol, hydralazine. 4. Volume overload. Hold lasix today although not sure this is having any effect on creatinine. 5. Tongue cancer. Carboplatin/paclitaxel chemo, per onc. 6. Anemia. Procrit 40K units/wk. S/p 1 U PRBCs yesterday. 7. Dispo. Would hold d/c until creat improving. Plan: 07/28/17 12:27 07/29/17 10:25 07/29/17 10:28 07/29/17 10:29 07/29/17 10:30 07/29/17 10:32 08/09/17 09:08 08/09/17 09:09 08/09/17 09:12 08/09/17 09:14 08/11/17 08:32 08/18/17 17:34 08/18/17 17:35 Subjective: Has dry cough. Anxious to discharge. Objective: Vital Signs Temp Pulse Resp BP Pulse Ox 36.5 C 65 17 140/65 H 98 08/18/17 16:00 08/18/17 16:00 08/18/17 16:00 08/18/17 16:00 08/18/17 16:00 Laboratory Results 08/18/17 05:40 08/18/17 05:40 08/17/17 08/18/17 08/19/17 05:59 05:59 05:59 Intake Total 130 1500 800 Output Total 520 600 320 Balance -390 900 480 Comfortable in chair Trach with PM valve Dry cough RRR, no m/g/r Coarse breath sounds throughout Abdom soft, nontender 2+ pitting edema ICD10 Worksheet Patient Problems: Problems Problem Status Onset Carcinoma of base of tongue Acute
[2017-08-18] MEDS: INSULIN GLARGINE 100 UNITS/ML UNIT SC SCH (21:59)
[2017-08-19] MEDS: SENNOSIDES 1 TAB PO SCH ×3 (01:24→21:27)
[2017-08-19] MEDS: HEPARIN 5,000 UNIT/0.5 ML SYR SC SCH ×3 (05:59→21:26)
[2017-08-19] MEDS: METOPROLOL TARTRATE 25 MG TAB PO SCH ×2 (08:19→21:27)
[2017-08-19] MEDS: PANTOPRAZOLE SODIUM 40 MG TAB PO SCH (08:19)
[2017-08-19] MEDS: PIOGLITAZONE HCL 15 MG TAB PO SCH (08:19)
[2017-08-19] MEDS: hydrALAZINE 25 MG TAB PO SCH ×3 (08:19→21:27)
[2017-08-19] MEDS: MULTIVITAMINS 1 EACH TAB PO SCH (08:19)
[2017-08-19] MEDS: ALLOPURINOL 300 MG TAB PO SCH (08:19)
[2017-08-19] MEDS: INSULIN LISPRO 100 UNIT/ML SC SCH ×3 (08:21→18:28)
--- NOTE | 2017-08-19 12:33 | SOAPPROG ---
SOAP Progress Note Assessment/Plan: Assessment/Plan: 71 yo man w base of tongue ca, clinically advanced T3N2 getting induction w carbo/taxol 1. Head and neck ca - SCC, HPV negative locally advanced, non-resectable s/p trach, PEG, PORT finally doing better and out of unit; biggest issue is depression/anxiety today tolerating po at this time on induction chemo to cytoreduce C2 chemo given 08/15/2017 C3 due 08/22 - orders written will need RT +/- cetuximab after induction (not a cisplatin candidate given GFR) Needs PET/CT as outpt for complete staging 2. Deconditioning - will need rehab; Discussed w Dr Loredo re: feasibility of getting transported for weekly chemo 3. Anemia - getting Procrit in hospital will cont as outpt will given 1unit PRBC 08/17 given Hgb of 6.9 4. CKD- ATN in ICU, renal following, Cr worse 5. Asp PNA - s/p course of abx 6. anxiety/depression - prn ativan, needs SSRI Dispo - pending Cr improvement for rehab 08/18/17 14:15 08/18/17 14:30 08/19/17 12:30 08/19/17 12:31 08/19/17 12:32 Subjective: Very tearful today and discouraged Objective: Vital Signs Temp Pulse Resp BP Pulse Ox 36.4 C 77 14 127/66 H 92 08/19/17 08:12 08/19/17 09:07 08/19/17 09:07 08/19/17 08:12 08/19/17 09:07 Laboratory Results 08/18/17 05:40 08/19/17 05:00 08/18/17 08/19/17 08/20/17 05:59 05:59 05:59 Intake Total 1500 1100 Output Total 600 1245 200 Balance 900 -145 -200 Gen - tearful HEENT - anicteric, trach Ext - 3+ edema ICD10 Worksheet Patient Problems: Problems Problem Status Onset Carcinoma of base of tongue Acute
--- NOTE | 2017-08-19 14:59 | HOSPPROG ---
Hospitalist Progress Note Assessment/Plan: 71 yo M w newly diagnosed tongue carcinoma, acute on chronic kidney failure, deconditioning Normocytic anemia: transfuse 1 unit RBC followed by lasix Volume overload: will give small dose lasix today with blood Acute on CKD: renal following. Holding nephrotoxins cr trending up suspect 2/2 diuresis up to 4.2 suspected ATN euvolemic today depression: discussed role of ssri for situational depression he is considering Head/neck cancer last chemo 08/15. Will need chemo to cytoreduce Deconditioning: inpatient rehab evaluating and will likely accept Aspiration PNA: s/p abx DALY on CKD: due to ATN DM 2: Glargine, Actos. Add low-dose SSI; monitor closely with DALY HTN: Acute hypoxic resp failure: trach Superficial cephalic vein: warm compresses. No NSAIDs Subjective: cr inching up. case d/w dr beaver Objective: Vital Signs Temp Pulse Resp BP Pulse Ox 36.6 C 65 16 132/68 H 95 08/19/17 13:00 08/19/17 13:00 08/19/17 13:00 08/19/17 13:00 08/19/17 13:00 Laboratory Results 08/18/17 05:40 08/19/17 05:00 08/18/17 08/19/17 08/20/17 05:59 05:59 05:59 Intake Total 1500 1100 Output Total 600 1245 200 Balance 900 -145 -200 - Physical Exam Constitutional: no apparent distress, appears nourished Eyes: PERRL, anicteric sclera Ears, Nose, Mouth, Throat: moist mucous membranes, hearing normal Cardiovascular: regular rate and rhythym, no murmur, rub, or gallop Respiratory: no respiratory distress, no rales or rhonchi Gastrointestinal: normoactive bowel sounds, soft, non-tender abdomen Genitourinary: no bladder fullness, No vasquez in urethra Skin: warm, normal color Musculoskeletal: full muscle strength Neurologic: AAOx3 ICD10 Worksheet Patient Problems: Problems Problem Status Onset Carcinoma of base of tongue Acute
--- NOTE | 2017-08-19 15:22 | SOAPPROG ---
SOAP Progress Note Assessment/Plan: Assessment: 1. DALY on CKD IV. Creat creeping up, now 4.2. Likely atn. Await plateau/recovery. 2. CKD IV. Likely diabetic nephropathy. Nephrotic. B/l creat ~2.6-2.7. 3. HTN. Generally decent control. On amlodipine, metoprolol, hydralazine. 4. Volume overload. Give dose of albumin/lasix x 1. 5. Tongue cancer. Carboplatin/paclitaxel chemo, per onc. 6. Anemia. Procrit 40K units/wk. S/p 1 U PRBCs yesterday. 7. Dispo. Would hold d/c until creat improving. 8. Depression. Start prozac. Plan: 07/28/17 12:27 07/29/17 10:25 07/29/17 10:28 07/29/17 10:29 07/29/17 10:30 07/29/17 10:32 08/09/17 09:08 08/09/17 09:09 08/09/17 09:12 08/09/17 09:14 08/11/17 08:32 08/18/17 17:34 08/18/17 17:35 08/19/17 15:21 Subjective: Feeling depressed. No other complaints today. Wants to get out of hospital. Objective: Vital Signs Temp Pulse Resp BP Pulse Ox 36.6 C 65 16 132/68 H 95 08/19/17 13:00 08/19/17 13:00 08/19/17 13:00 08/19/17 13:00 08/19/17 13:00 Laboratory Results 08/18/17 05:40 08/19/17 05:00 08/18/17 08/19/17 08/20/17 05:59 05:59 05:59 Intake Total 1500 1100 Output Total 600 1245 200 Balance 900 -145 -200 Comfortable, in chair, trach mask with PM valve RRR, I/ sys murmur, no G/R Coarse rhonchi throughout, mild expiratory wheezes Abdom soft, nontender 3+ sacral to ankle pitting edema ICD10 Worksheet Patient Problems: Problems Problem Status Onset Carcinoma of base of tongue Acute
[2017-08-19] MEDS ORDERED: ALBUMIN 25% 100 ML IV ONE (15:25)
[2017-08-19] MEDS ORDERED: FUROSEMIDE 40 MG/4 ML VIAL IVP ONE (16:00)
[2017-08-19] MEDS: FLUoxetine 10 MG CAP PO SCH (16:21)
--- NOTE | 2017-08-19 16:21 | ASMTCMCOM ---
CM Note CM Note Notes: Due to pt's creatinine, pt not DC for a few days. Inpt rehab aware and cannot accept pt over the weekend. They will reevaluate on Wednesday. If pt does not meet criteris on Wednesday, pt and agree to SNF placement. CM to follow. Date Signed: 08/19/2017 04:20 PM Electronically Signed By:Alanna Zamudio LCSW
[2017-08-19] MEDS: INSULIN GLARGINE 100 UNITS/ML UNIT SC SCH (21:26)
[2017-08-19] MEDS: LORazepam 1 MG/0.5 ML UDSYR PO PRN (21:28)
[2017-08-20] MEDS: HEPARIN 5,000 UNIT/0.5 ML SYR SC SCH ×3 (05:03→20:16)
[2017-08-20] MEDS: ALLOPURINOL 300 MG TAB PO SCH (08:38)
[2017-08-20] MEDS: PIOGLITAZONE HCL 15 MG TAB PO SCH (08:38)
[2017-08-20] MEDS: METOPROLOL TARTRATE 25 MG TAB PO SCH ×2 (08:39→20:17)
[2017-08-20] MEDS: hydrALAZINE 25 MG TAB PO SCH ×3 (08:40→20:17)
[2017-08-20] MEDS: PANTOPRAZOLE SODIUM 40 MG TAB PO SCH (08:40)
[2017-08-20] MEDS: FLUoxetine 10 MG CAP PO SCH (08:40)
[2017-08-20] MEDS: MULTIVITAMINS 1 EACH TAB PO SCH (08:41)
[2017-08-20] MEDS: INSULIN LISPRO 100 UNIT/ML SC SCH ×3 (08:42→19:11)
[2017-08-20] MEDS: SENNOSIDES 1 TAB PO SCH ×2 (10:56→20:18)
--- NOTE | 2017-08-20 13:38 | SOAPPROG ---
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 He has received 2 cycles thus far and is due for his third treatment on Wednesday. Hopefully he will be transferred to inpatient Rehab on Wednesday of next week. Plan is to complete initial induction chemotherapy prior to definitive XRT with Cetuximab. Plan outpatient PET scan to complete staging. Renal function finally recovering. Patient and had multiple questions which were answered. Subjective: Feels better. Reports less depression and anxiety. Denies pain. at bedside. Objective: Vital Signs Temp Pulse Resp BP Pulse Ox 36.6 C 64 18 109/76 94 08/20/17 12:50 08/20/17 12:50 08/20/17 12:50 08/20/17 12:50 08/20/17 12:50 Laboratory Results 08/18/17 05:40 08/20/17 05:00 08/19/17 08/20/17 08/21/17 05:59 05:59 05:59 Intake Total 1100 900 Output Total 1245 2150 Balance -145 -1250 - Time Spent With Patient Time Spent With Patient: 25 minutes Physical Exam - Physical Exam General Appearance: alert, no apparent distress EENT: PERRL/EOMI, other (Tracheostomy site clean and w/o induration) Respiratory: other (breathing comfortably) Skin: normal color Neuro/Psych: alert, normal mood/affect ICD10 Worksheet Patient Problems: Problems Problem Status Onset Carcinoma of base of tongue Acute
--- NOTE | 2017-08-20 14:25 | HOSPPROG ---
Hospitalist Progress Note Assessment/Plan: 71 yo M w newly diagnosed tongue carcinoma, acute on chronic kidney failure, deconditioning Normocytic anemia: transfuse 1 unit RBC followed by lasix Volume overload: diuresis per renal respondede well yesterday w regards to cr Acute on CKD: renal following. Holding nephrotoxins cr trending up suspect 2/2 diuresis 3.9 today from 4.2 hopefully has crested depression: discussed role of ssri for situational depression ssri started Head/neck cancer last chemo 08/15. Will need chemo to cytoreduce Deconditioning: inpatient rehab evaluating and will likely accept Aspiration PNA: s/p abx DALY on CKD: due to ATN DM 2: Glargine, Actos. Add low-dose SSI; monitor closely with DALY HTN: Acute hypoxic resp failure: trach Superficial cephalic vein: warm compresses. No NSAIDs Subjective: case d/w dr paul Objective: Vital Signs Temp Pulse Resp BP Pulse Ox 36.6 C 64 18 109/76 94 08/20/17 12:50 08/20/17 12:50 08/20/17 12:50 08/20/17 12:50 08/20/17 12:50 Laboratory Results 08/18/17 05:40 08/20/17 05:00 08/19/17 08/20/17 08/21/17 05:59 05:59 05:59 Intake Total 1100 900 Output Total 1245 2150 Balance -145 -1250 - Physical Exam Constitutional: no apparent distress, appears nourished Eyes: PERRL, anicteric sclera Ears, Nose, Mouth, Throat: moist mucous membranes, hearing normal Cardiovascular: regular rate and rhythym, no murmur, rub, or gallop Respiratory: no respiratory distress, no rales or rhonchi Gastrointestinal: normoactive bowel sounds, soft, non-tender abdomen Genitourinary: no bladder fullness, No vasquez in urethra Skin: warm, normal color Musculoskeletal: full muscle strength, no muscle tenderness Neurologic: AAOx3 ICD10 Worksheet Patient Problems: Problems Problem Status Onset Carcinoma of base of tongue Acute
--- NOTE | 2017-08-20 16:03 | SOAPPROG ---
SOAP Progress Note Assessment/Plan: Assessment: 1. DALY on CKD IV. Creat starting to recover, now 3.9. Likely atn. Good uop with lasix. 2. CKD IV. Likely diabetic nephropathy. Nephrotic. B/l creat ~2.6-2.7. 3. HTN. Generally decent control. On amlodipine, metoprolol, hydralazine. 4. Volume overload. Good response to lasix. Give another dose of albumin/lasix. 5. Tongue cancer. Carboplatin/paclitaxel chemo, per onc. 6. Anemia. Procrit 40K units/wk. S/p 1 U PRBCs. 7. Dispo. As long as creatinine stable or improved in am, august d/c from renal standpoint. 8. Depression. Continue prozac. Plan: 07/28/17 12:27 07/29/17 10:25 07/29/17 10:28 07/29/17 10:29 07/29/17 10:30 07/29/17 10:32 08/09/17 09:08 08/09/17 09:09 08/09/17 09:12 08/09/17 09:14 08/11/17 08:32 08/18/17 17:34 08/18/17 17:35 08/19/17 15:21 08/20/17 16:00 Subjective: Had mild hypoxia earlier today. Coughing up phlegm. Objective: Vital Signs Temp Pulse Resp BP Pulse Ox 36.6 C 64 18 109/76 94 08/20/17 12:50 08/20/17 12:50 08/20/17 12:50 08/20/17 12:50 08/20/17 12:50 Laboratory Results 08/18/17 05:40 08/20/17 05:00 08/19/17 08/20/17 08/21/17 05:59 05:59 05:59 Intake Total 1100 900 Output Total 1245 2150 Balance -145 -1250 Comfortable, wearing trach mask RRR, II/ systolic murmur Coarse rhonchi throughout Abdom obese, nontender 2+ pitting edema ICD10 Worksheet Patient Problems: Problems Problem Status Onset Carcinoma of base of tongue Acute
[2017-08-20] MEDS ORDERED: ALBUMIN 25% 100 ML IV ONE (16:05)
--- NOTE | 2017-08-20 16:05 | ASMTCMCOM ---
CM Note CM Note Notes: Current plan is for inpt rehab to re-eval pt on Wednesday for admission there. Backup plan is SNF. [facility] [place] [facility] comfortable with traechs. Left a msg for admissions. They will need referral if Inpt rehab declines pt. After Wednesday's chemo, pt will not have chemo for two weeks. No Snf will take pt after two weeks due to chemo but pt and Arlene are now comfortable with pt's traech and respiratory has been providing teaching to both. CM to follow. Date Signed: 08/20/2017 04:05 PM Electronically Signed By:Alanna Zamudio LCSW
[2017-08-20] MEDS ORDERED: FUROSEMIDE 40 MG/4 ML VIAL IVP ONE (16:06)
[2017-08-20] MEDS: LORazepam 1 MG/0.5 ML UDSYR PO PRN (20:22)
[2017-08-20] MEDS: INSULIN GLARGINE 100 UNITS/ML UNIT SC SCH (21:10)
[2017-08-21] MEDS: HEPARIN 5,000 UNIT/0.5 ML SYR SC SCH ×3 (04:45→20:26)
[2017-08-21] MEDS: INSULIN LISPRO 100 UNIT/ML SC SCH ×3 (09:18→18:17)
[2017-08-21] MEDS: ALLOPURINOL 300 MG TAB PO SCH (09:21)
[2017-08-21] MEDS: FLUoxetine 10 MG CAP PO SCH (09:21)
[2017-08-21] MEDS: MULTIVITAMINS 1 EACH TAB PO SCH (09:21)
[2017-08-21] MEDS: METOPROLOL TARTRATE 25 MG TAB PO SCH ×2 (09:22→20:21)
[2017-08-21] MEDS: hydrALAZINE 25 MG TAB PO SCH ×2 (09:23→15:32)
[2017-08-21] MEDS: IPRATROPIUM/ALBUTEROL 3 ML DEYVIAL IH PRN ×2 (10:02→20:33)
--- NOTE | 2017-08-21 10:19 | HOSPPROG ---
Hospitalist Progress Note Assessment/Plan: 71 yo M w newly diagnosed tongue carcinoma, acute on chronic kidney failure, deconditioning Normocytic anemia: transfuse 1 unit RBC followed by lasix Volume overload: diuresis per renal respondede well yesterday w regards to cr Acute on CKD: renal following. 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 Will need chemo to cytoreduce Deconditioning: inpatient rehab evaluating and will likely accept Aspiration PNA: s/p abx DALY on CKD: due to ATN DM 2: Glargine, Actos. Add low-dose SSI; monitor closely with DALY HTN: Acute hypoxic resp failure: trach Superficial cephalic vein: warm compresses. No NSAIDs Subjective: good spirits today. cr trending down. case d/w dr brower Objective: Vital Signs Temp Pulse Resp BP Pulse Ox 36.7 C 67 14 124/63 H 97 08/21/17 09:22 08/21/17 10:03 08/21/17 10:03 08/21/17 09:22 08/21/17 10:03 Laboratory Results 08/18/17 05:40 08/21/17 04:54 08/20/17 08/21/17 08/22/17 05:59 05:59 05:59 Intake Total 900 1525 Output Total 2150 1875 Balance -1250 -350 - Physical Exam Constitutional: no apparent distress, appears nourished Eyes: PERRL, anicteric sclera Ears, Nose, Mouth, Throat: moist mucous membranes, hearing normal Cardiovascular: regular rate and rhythym, no murmur, rub, or gallop Respiratory: no respiratory distress, no rales or rhonchi Gastrointestinal: normoactive bowel sounds, soft, non-tender abdomen Genitourinary: no bladder fullness, No vasquez in urethra Skin: warm, normal color Musculoskeletal: full muscle strength Neurologic: AAOx3 ICD10 Worksheet Patient Problems: Problems Problem Status Onset Carcinoma of base of tongue Acute
--- NOTE | 2017-08-21 11:46 | SOAPPROG ---
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 He has received 2 cycles thus far and is due for his third treatment on Wednesday. Hopefully he will be transferred to inpatient Rehab on Wednesday of next week. Plan is to complete initial induction chemotherapy prior to definitive XRT with Cetuximab. Plan outpatient PET scan to complete staging. Renal function finally recovering. Patient and had multiple questions which were answered. Subjective: Feels ok Objective: Vital Signs Temp Pulse Resp BP Pulse Ox 98.1 F 67 14 124/63 H 97 08/21/17 09:22 08/21/17 10:03 08/21/17 10:03 08/21/17 09:22 08/21/17 10:03 Laboratory Results 08/18/17 05:40 08/21/17 04:54 08/20/17 08/21/17 08/22/17 05:59 05:59 05:59 Intake Total 900 1525 Output Total 2150 1875 Balance -1250 -350 Physical Exam - Physical Exam General Appearance: alert Neck: other (Trach) Respiratory: decreased breath sounds Cardiac/Chest: regular rate, rhythm ICD10 Worksheet Patient Problems: Problems Problem Status Onset Carcinoma of base of tongue Acute
[2017-08-21] MEDS: PANTOPRAZOLE SODIUM 40 MG TAB PO SCH (12:36)
[2017-08-21] MEDS: PIOGLITAZONE HCL 15 MG TAB PO SCH (12:36)
--- NOTE | 2017-08-21 16:16 | SOAPPROG ---
SOAP Progress Note Assessment/Plan: Assessment: 1. DALY on CKD IV. Creat starting to recover, now 3.6. Likely atn. Good uop with lasix. OK to continue 2. CKD IV. Likely diabetic nephropathy. Nephrotic. B/l creat ~2.6-2.7. 3. HTN. -Generally decent control. -Hold Amlodipine to offset any effects on peripheral edema -Cont metoprolol, double hydralazine. 4. Volume overload. Good response to lasix. Albumin > 2, schedule lasix 40mg IV BID. Will hold off if Cr worsens again 5. Tongue cancer. Carboplatin/paclitaxel chemo, per onc. 6. Anemia. Procrit 40K units/wk. S/p 1 U PRBCs. 7. Dispo. As long as creatinine stable or improved in am, august d/c from renal standpoint. 8. Depression. Continue prozac. Plan: 08/21/17 16:11 08/21/17 16:16 Subjective: Feels well, notes some improvement in UOP Objective: Vital Signs Temp Pulse Resp BP Pulse Ox 36.6 C 72 20 150/68 H 94 08/21/17 11:54 08/21/17 11:54 08/21/17 11:54 08/21/17 11:54 08/21/17 11:54 Laboratory Results 08/18/17 05:40 08/21/17 04:54 08/20/17 08/21/17 08/22/17 05:59 05:59 05:59 Intake Total 900 1525 Output Total 2150 4007 450 Balance -1250 -350 -450 Physical Exam - Physical Exam General Appearance: WD/WN Neck: other (TC) Respiratory: wheezing Cardiac/Chest: regular rate, rhythm Abdomen: soft Extremities: swelling (2+) ICD10 Worksheet Patient Problems: Problems Problem Status Onset Carcinoma of base of tongue Acute
[2017-08-21] MEDS: FUROSEMIDE 40 MG/4 ML VIAL IVP SCH (16:55)
[2017-08-21] MEDS: SENNOSIDES 1 TAB PO SCH ×2 (17:15→20:20)
[2017-08-21] MEDS: LORazepam 1 MG/0.5 ML UDSYR PO PRN (20:22)
[2017-08-21] MEDS: INSULIN GLARGINE 100 UNITS/ML UNIT SC SCH (20:22)
[2017-08-22] MEDS: HEPARIN 5,000 UNIT/0.5 ML SYR SC SCH ×3 (05:54→21:37)
[2017-08-22 06:13] LABS: PLATELET COUNT 147 10^3/uL (150-400)
[2017-08-22] MEDS: FUROSEMIDE 40 MG/4 ML VIAL IVP SCH ×2 (08:17→16:06)
[2017-08-22] MEDS: ALLOPURINOL 300 MG TAB PO SCH (08:17)
[2017-08-22] MEDS: FLUoxetine 10 MG CAP PO SCH (08:17)
[2017-08-22] MEDS: METOPROLOL TARTRATE 25 MG TAB PO SCH ×2 (08:17→21:38)
[2017-08-22] MEDS: MULTIVITAMINS 1 EACH TAB PO SCH (08:18)
[2017-08-22] MEDS: PANTOPRAZOLE SODIUM 40 MG TAB PO SCH (08:18)
[2017-08-22] MEDS: SENNOSIDES 1 TAB PO SCH ×2 (08:27→13:33)
[2017-08-22] MEDS: INSULIN LISPRO 100 UNIT/ML SC SCH ×2 (08:27→14:25)
[2017-08-22] MEDS ORDERED: DEXAMETHASONE 20 MG in D5W 50 ML IV ONE (08:30)
[2017-08-22] MEDS: LIDOCAINE 4%/MENTHOL 1% PATCH TD SCH (10:40)
--- NOTE | 2017-08-22 11:55 | SOAPPROG ---
SOAGNES Progress Note Assessment/Plan: Assessment: 1. DALY on CKD IV. Creat starting to recover, now 3.4. Likely resolving atn. Good uop with lasix. OK to continue 2. CKD IV. Likely diabetic nephropathy. Nephrotic. B/l creat ~2.6-2.7. 3. HTN. -Generally decent control. -Held Amlodipine to offset any effects on peripheral edema -Cont metoprolol, doubled hydralazine. -Inc Lasix to BID 4. Volume overload. Good response to lasix. Albumin > 2, increase lasix to 40mg IV BID. Will hold off if Cr worsens again 5. Tongue cancer. Carboplatin/paclitaxel chemo, per onc. 6. Anemia. Procrit 40K units/wk. S/p 1 U PRBCs. 7. Dispo. As long as creatinine stable or improved in am, august d/c from renal standpoint. 8. Depression. Continue prozac. Plan: 08/22/17 11:52 08/22/17 11:52 08/22/17 11:53 Subjective: Feels well, no complaints. Objective: Vital Signs Temp Pulse Resp BP Pulse Ox 36.4 C 67 18 142/84 H 95 08/22/17 09:02 08/22/17 09:02 08/22/17 09:02 08/22/17 09:02 08/22/17 09:02 Laboratory Results 08/22/17 06:10 08/22/17 06:10 08/21/17 08/22/17 08/23/17 05:59 05:59 05:59 Intake Total 1525 1450 Output Total 1875 1290 Balance -350 160 Physical Exam - Physical Exam General Appearance: WD/WN Neck: other (TC) Respiratory: wheezing Cardiac/Chest: regular rate, rhythm Abdomen: non-tender, soft Extremities: swelling (2+) ICD10 Worksheet Patient Problems: Problems Problem Status Onset Carcinoma of base of tongue Acute
[2017-08-22] MEDS ORDERED: FAMOTIDINE 20 MG/NACL 50 ML IV ONE (12:00)
[2017-08-22] MEDS ORDERED: ONDANSETRON HCL PF 8 MG, DEXAMETHASONE 10 MG in NS 50 ML IV ONE (12:00)
--- NOTE | 2017-08-22 12:16 | HOSPPROG ---
Hospitalist Progress Note Assessment/Plan: 71 yo M w newly diagnosed tongue carcinoma, acute on chronic kidney failure, deconditioning Normocytic anemia: transfuse 1 unit RBC followed by lasix Volume overload: bid IV lasix started today Acute on CKD: renal following. Holding nephrotoxins cr trending up suspect 2/2 diuresis cr trending down to baseline depression: discussed role of ssri for situational depression ssri started Head/neck cancer last chemo 08/15. Will need chemo to cytoreduce Deconditioning: inpatient rehab evaluating and will likely accept Aspiration PNA: s/p abx DALY on CKD: due to ATN DM 2: Glargine, Actos. Add low-dose SSI; monitor closely with DALY HTN: Acute hypoxic resp failure: trach Superficial cephalic vein: warm compresses. No NSAIDs likely to inpt rehab 08/23 Subjective: carboplatin today. lasix started. case d/w dr brower Objective: Vital Signs Temp Pulse Resp BP Pulse Ox 36.4 C 61 18 135/60 H 95 08/22/17 12:07 08/22/17 12:07 08/22/17 12:07 08/22/17 12:07 08/22/17 12:07 Laboratory Results 08/22/17 06:10 08/22/17 06:10 08/21/17 08/22/17 08/23/17 05:59 05:59 05:59 Intake Total 1525 1450 Output Total 1875 1290 Balance -350 160 - Physical Exam Constitutional: no apparent distress, appears nourished Eyes: PERRL, anicteric sclera Ears, Nose, Mouth, Throat: moist mucous membranes, hearing normal Cardiovascular: regular rate and rhythym, no murmur, rub, or gallop, No tachycardia Respiratory: no respiratory distress, no rales or rhonchi Gastrointestinal: normoactive bowel sounds, soft, non-tender abdomen Genitourinary: no bladder fullness, No vasquez in urethra Skin: warm, normal color Musculoskeletal: full muscle strength Neurologic: AAOx3 ICD10 Worksheet Patient Problems: Problems Problem Status Onset Carcinoma of base of tongue Acute
--- NOTE | 2017-08-22 12:22 | SOAPPROG ---
SOAP Progress Note Assessment/Plan: Assessment: 1) T3N2 SCC base of tongue 2) Airway obstruction secondary to #1 (S/P tracheostomy) 3) ATN, gradually improving Plan: Sukhjinder is receiving induction weekly Taxol / Carboplatin. He has received 2 cycles thus far and is due for his third treatment today Hopefully he will be transferred to inpatient Rehab on Wednesday of next week. Plan is to complete initial induction chemotherapy prior to definitive XRT with Cetuximab. Plan outpatient PET scan to complete staging. Renal function finally recovering. Patient and had multiple questions which were answered.Will need follow up with me post d/c 08/22/17 12:21 Subjective: Feels ok, getting stronger Objective: Vital Signs Temp Pulse Resp BP Pulse Ox 97.5 F 61 18 135/60 H 95 08/22/17 12:07 08/22/17 12:07 08/22/17 12:07 08/22/17 12:07 08/22/17 12:07 Laboratory Results 08/22/17 06:10 08/22/17 06:10 08/21/17 08/22/17 08/23/17 05:59 05:59 05:59 Intake Total 1525 1450 Output Total 1875 1290 Balance -350 160 ICD10 Worksheet Patient Problems: Problems Problem Status Onset Carcinoma of base of tongue Acute
[2017-08-22] MEDS ORDERED: PACLITAXEL IV ONE (12:30)
[2017-08-22] MEDS ORDERED: D5W IV ONE (12:30)
[2017-08-22] MEDS: PIOGLITAZONE HCL 15 MG TAB PO SCH (14:24)
[2017-08-22] MEDS ORDERED: NS IV ONE (14:30)
[2017-08-22] MEDS ORDERED: CARBOPLATIN IV ONE (14:30)
[2017-08-22] MEDS: INSULIN GLARGINE 100 UNITS/ML UNIT SC SCH (21:37)
[2017-08-22] MEDS: LORazepam 1 MG/0.5 ML UDSYR PO PRN (21:37)
[2017-08-22] MEDS: PATCH REMOVAL 1 EA PATCH TD SCH (21:39)
[2017-08-23] MEDS: HEPARIN 5,000 UNIT/0.5 ML SYR SC SCH ×3 (05:59→22:11)
[2017-08-23] MEDS: PIOGLITAZONE HCL 15 MG TAB PO SCH (08:38)
[2017-08-23] MEDS: PANTOPRAZOLE SODIUM 40 MG TAB PO SCH (08:39)
[2017-08-23] MEDS: FUROSEMIDE 40 MG/4 ML VIAL IVP SCH (08:39)
[2017-08-23] MEDS: METOPROLOL TARTRATE 25 MG TAB PO SCH ×2 (08:39→22:13)
[2017-08-23] MEDS: MULTIVITAMINS 1 EACH TAB PO SCH (08:39)
[2017-08-23] MEDS: LIDOCAINE 4%/MENTHOL 1% PATCH TD SCH (08:39)
[2017-08-23] MEDS: FLUoxetine 10 MG CAP PO SCH (08:39)
[2017-08-23] MEDS: ALLOPURINOL 300 MG TAB PO SCH (08:39)
[2017-08-23] MEDS: SENNOSIDES 1 TAB PO SCH ×2 (08:49→22:04)
[2017-08-23] MEDS: EPOETIN ALFA 10,000 UNIT/ML VIAL SC SCH (10:02)
--- NOTE | 2017-08-23 12:03 | SOAPPROG ---
SOAP Progress Note Assessment/Plan: Assessment: 1) T3N2 SCC base of tongue 2) Airway obstruction secondary to #1 (S/P tracheostomy) 3) ATN (resolving) Plan: Sukhjinder is receiving induction weekly Taxol / Carboplatin. He has received 3 cycles thus far. Hopefully he will be transferred to inpatient Rehab today. Plan is to complete initial induction chemotherapy prior to definitive XRT with Cetuximab. Plan outpatient PET scan to complete staging. Renal function recovering slowly. Plan outpatient follow up early next week with Dr. Saunders for 4th cycle on induction chemotherapy. Subjective: Feels well. Received 3rd cycle of Taxol / Carbo yesterday. Probable d/c to inpatient rehab today. Objective: Vital Signs Temp Pulse Resp BP Pulse Ox 36.8 C 73 28 H 172/65 H 98 08/23/17 08:10 08/23/17 08:10 08/23/17 08:10 08/23/17 08:10 08/23/17 08:10 Laboratory Results 08/22/17 06:10 08/23/17 06:27 08/22/17 08/23/17 08/24/17 05:59 05:59 05:59 Intake Total 1450 1257 Output Total 1290 600 170 Balance 160 657 -170 - Time Spent With Patient Time Spent With Patient: 20 minutes Physical Exam - Physical Exam General Appearance: alert, no apparent distress EENT: other (Trach site clean and w/o infxn) Neuro/Psych: no motor/sensory deficits, alert, normal mood/affect ICD10 Worksheet Patient Problems: Problems Problem Status Onset Carcinoma of base of tongue Acute
--- NOTE | 2017-08-23 13:54 | SOAPPROG ---
SOAP Progress Note Assessment/Plan: Assessment: 1. Crf: creat sl >b/l of high-2's but reasonably stable. Likely element of recurrent atn that hopefully will resolve. Stable for d/c to rehab any time from renal standpoint. 2. Htn: stable, cont current meds but would cont to hold arb. 3. SCCa: on chemo Plan: 08/03/17 13:36 08/04/17 15:04 08/10/17 14:51 08/23/17 13:51 Subjective: Up in chair, no particular c/o. Hoping to go to rehab soon. Objective: Vital Signs Temp Pulse Resp BP Pulse Ox 36.8 C 61 20 119/63 94 08/23/17 08:10 08/23/17 12:01 08/23/17 12:01 08/23/17 12:01 08/23/17 12:01 Laboratory Results 08/22/17 06:10 08/23/17 06:27 08/22/17 08/23/17 08/24/17 05:59 05:59 05:59 Intake Total 1450 1257 Output Total 1290 600 170 Balance 160 657 -170 Physical Exam - Physical Exam General Appearance: no apparent distress Respiratory: decreased breath sounds (anteriorly) Cardiac/Chest: regular rate, rhythm Abdomen: soft Extremities: pedal edema ICD10 Worksheet Patient Problems: Problems Problem Status Onset Carcinoma of base of tongue Acute
--- NOTE | 2017-08-23 16:33 | HOSPPROG ---
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 Status post airway stabilization with tracheostomy, dietary stabilization with PEG tube, initiated on carbo/taxol, s/p 3 cycles (weekly) - d/w Dr. Lynne, he reports [facility] will contact patient and arrange for weekly cycles, then patient will get XRT/cetuximab 2. Acute tubular necrosis on CKD Stage IV. Patient experienced ATN with peak creatinine 3.8, most likely hemodynamically mediated in the setting of chronic kidney disease stage 4 with baseline creatinine 2.5-3.0 -appreciate ongoing nephrology consultation, Cr uptrended to 3.7 today s/p IV lasix 08/22 -continue monitor creatinine level and urine output -d/w Dr. Brand, he recommends resuming home HCTZ tomorrow for DC home, and outpt lab monitoring 3. Aspiration pneumonia. Seen by Pulmonary, status post IV antibiotics including vancomycin and levofloxacin, sputum culture from 07/29 demonstrating MSSA -s/p 14 days of liq Augmentin 4. Anemia of chronic kidney disease. Continue monitor hemoglobin level, stable 8.1 5. Diabetes mellitus type 2 with hyperglycemia. Improved w/ uptitration of lantus, actos, ISS 6. Acute atelectasis. Encourage incentive spirometer 7. Hypertension. Chronic, reinitiated amlodipine w/ success 8. Acute Hyperkalemia. 2/2 ATN, downtrended 9. Acute hypoxic respiratory failure. Evidenced by SpO2 85% on 30% FiO2, requiring uptitration to 50-60% FiO2, w/ objective tachypnea (RR>22) and frothy secretions, indicating that it is 2/2 combination of pneumonia, atelectasis, mucous plugging and NOT the original procedure - weaned to 8LPM - completely reliant on trach for airway protection, CT confirmed correct placement - coordinated w/ RT to supply trac supplies and home o2 through DME, dx: lingular squamous cell carcinoma 10. Superficial cephalic vein thrombosis on left upper extremity. Resulting in edema, elevate and warm compress, cont on dvt ppx but do not systemically anticoagulate as this is NOT a DVT 11. Acute chest pain. Likely 2/2 GERD, no recurrence, PORT site CDI Diet. Peg tube Code. Full Prophylaxis. High risk patient, heparin subcu Disposition. Anticipated discharge 08/24, pending stabilization of above Counseled patient and extensively regarding the above preparations for discharge home, coordinated care w/ the above providers. Subjective: less SOB w/ exertion, ongoing polyuria Objective: Vital Signs Temp Pulse Resp BP Pulse Ox 36.3 C 63 20 133/66 H 96 08/23/17 16:17 08/23/17 16:17 08/23/17 16:17 08/23/17 16:17 08/23/17 16:17 Laboratory Results 08/22/17 06:10 08/23/17 06:27 08/22/17 08/23/17 08/24/17 05:59 05:59 05:59 Intake Total 1450 1257 Output Total 1290 600 170 Balance 160 657 -170 - Time Spent With Patient Time Spent with Patient: greater than 35 minutes Time Spent with Patient: Greater than 35 minutes spent on this patients care, greater than 50% of time spent counseling, educating, and coordinating care regarding the above mentioned plan. - Pending Discharge Pending Discharge Within 24 Hours: Yes Pending Discharge Date: 08/24/17 Pending Discharge Time: 11:00 - Physical Exam Constitutional: no apparent distress, not in pain, obese, No uncomfortable Ears, Nose, Mouth, Throat: other (trach in place) Cardiovascular: regular rate and rhythym, no murmur, rub, or gallop, edema ( diffuse) Respiratory: other (mild insp wheeze bilat) Gastrointestinal: normoactive bowel sounds, soft, non-tender abdomen, no palpable masses Neurologic: AAOx3 Psychiatric: interacting appropriately, not anxious, not encephalopathic, thought process linear ICD10 Worksheet Patient Problems: Problems Problem Status Onset Carcinoma of base of tongue Acute
--- NOTE | 2017-08-23 16:45 | ASMTCMCOM ---
CM Note CM Note Notes: Inpt Rehab declined pt today as he is no longer appropriate for that LOC. Discussed home care and SNF options with pt and his and they made decision for pt to d/c home with home care. His understands she will need to learn suctioning and trach care. Spoke with [facility] and they are able to accept pt for trach care, RN/PT/OT/QUARRYMAN. Respiratory therapy set up home O2 through [employer]. They will also supply the suction machine and supplies. Pt is very happy to know he is going home tomorrow. Date Signed: 08/23/2017 04:44 PM Electronically Signed By:CALIN Schroeder
--- NOTE | 2017-08-23 18:14 | PDHOMEO2F ---
Home Oxygen Face to Face Home Orders: I certify that a physician or a nurse practitioner or physician's wet process miller head assistant has had a [id number] encounter with this patient on the date of this order due to the diagnosis listed, which relates to the primary reason the patient requires home oxygen. Alternative treatments have been tried, or considered, and deemed ineffective. It is anticipated that supplemental oxygen will result in improvement with treatment. Home oxygen qualifying diagnosis: Lingular squamous cell carcinoma of tongue base SpO2 on room air (%): 85 Frequency of home oxygen needed: continuous Home oxygen liters per minute: 4 Home oxygen delivery device: other (trach mask) Concentrator: Yes E-tanks for mobility and back up: Yes If ordering portable O2, is the patient mobile in the home?: Yes I certify that, based on these findings, the home oxygen is medically necessary for this patient for the following length of time. Length of time home oxygen needed: 99 years
[2017-08-23] MEDS: LORazepam 1 MG/0.5 ML UDSYR PO PRN (22:12)
[2017-08-23] MEDS: INSULIN GLARGINE 100 UNITS/ML UNIT SC SCH (22:12)
[2017-08-23] MEDS: PATCH REMOVAL 1 EA PATCH TD SCH (22:23)
[2017-08-24] MEDS: HEPARIN 5,000 UNIT/0.5 ML SYR SC SCH ×3 (05:24→21:45)
--- NOTE | 2017-08-24 10:56 | SOAPPROG ---
SOAP Progress Note Assessment/Plan: Assessment: 1. DALY on CKD He is at the end of a difficult hospitalization. He very much want to go home. He appears generally stable, but has multiple issues that need close attention. He will need home care, frequent labs, and monitoring of his home weights. I have communicated these needs with the primary service. Our office will follow up with him on . 2. Anemia He will need to continue procrit injections. 3. K level is ok 4. Fluid Overload O2 Levels are stable. He has some rales in RLL today. Will dc on Bumex 1mg bid. Plan: 08/24/17 10:53 Subjective: Alert, want to go home Objective: Vital Signs Temp Pulse Resp BP Pulse Ox 36.8 C 68 17 134/63 H 84 L 08/24/17 08:09 08/24/17 09:16 08/24/17 09:16 08/24/17 08:09 08/24/17 09:16 Laboratory Results 08/24/17 05:30 08/24/17 05:30 08/23/17 08/24/17 08/25/17 05:59 05:59 05:59 Intake Total 1257 600 Output Total 600 670 Balance 657 -70 Physical Exam - Physical Exam General Appearance: no apparent distress Respiratory: rales (RLL, some exp wheezing) Cardiac/Chest: regular rate, rhythm Extremities: pedal edema (1-2+) ICD10 Worksheet Patient Problems: Problems Problem Status Onset Carcinoma of base of tongue Acute
[2017-08-24] MEDS: METOPROLOL TARTRATE 25 MG TAB PO SCH ×2 (11:08→21:45)
[2017-08-24] MEDS: PIOGLITAZONE HCL 15 MG TAB PO SCH (11:08)
[2017-08-24] MEDS: MULTIVITAMINS 1 EACH TAB PO SCH (11:08)
[2017-08-24] MEDS: ALLOPURINOL 300 MG TAB PO SCH (11:08)
[2017-08-24] MEDS: PANTOPRAZOLE SODIUM 40 MG TAB PO SCH (11:09)
[2017-08-24] MEDS: FLUoxetine 10 MG CAP PO SCH (11:09)
[2017-08-24] MEDS: SENNOSIDES 1 TAB PO SCH ×2 (11:10→21:45)
[2017-08-24] MEDS: LIDOCAINE 4%/MENTHOL 1% PATCH TD SCH (11:12)
[2017-08-24] MEDS ORDERED: BUMETANIDE 1 MG TAB PO ONE (11:50)
--- NOTE | 2017-08-24 12:14 | PDIAF ---
- Diagnosis Diagnosis: Lingular squamous cell cancer at base of tongue, CKD Stage IV, Resp Failure Code Status: Full Code - Medication Management Discharge Medications: Medications to Continue on Transfer Allopurinol [Allopurinol 300 MG (RX)] 300 mg PO DAILY 07/23/17 [Last Taken 07/26] Aspirin [Aspirin 81mg (*)] 81 mg PO DAILY 07/23/17 [Last Taken 07/25/17] Pioglitazone HCl [Actos] 30 mg PO DAILY 07/23/17 [Last Taken 07/26/17] Insulin Detemir [Levemir] 20 unit SQ DAILY 07/27/17 [Last Taken 07/26/17] Multivitamins [Multivitamin (*)] 1 each PO DAILY 07/27/17 [Last Taken Unknown] Bumetanide 1 mg PO BIDDIUR #120 tablet 08/24/17 [Last Taken Unknown] FLUoxetine [Prozac 10 MG (*)] 10 mg PO DAILY #30 cap 08/24/17 [Last Taken Unknown] Lidocaine 1% [Lidocaine HCl 1%] 2 ml IH Q4H PRN #30 ml 08/24/17 [Last Taken Unknown] Lidocaine 4%/Menthol 1% [Icy Hot Lidocaine/Menthol 4%/1% Patch (*)] 1 patch TD DAILY #30 patch 08/24/17 [Last Taken Unknown] Metoprolol Tartrate [Lopressor 25 mg (*)] 25 mg PO BID #60 tab 08/24/17 [Last Taken Unknown] Pantoprazole Sodium [Protonix 40mg (*)] 40 mg PO DAILY #30 tab 08/24/17 [Last Taken Unknown] Patch Removal 1 ea TD DAILY21 patch 08/24/17 [Last Taken Unknown] Sennosides [Senokot] 2 tab PO BID tab 08/24/17 [Last Taken Unknown] guaiFENesin/DEXTROMETHORPHAN [Robitussin Dm Oral Liquid (*)] 10 ml PO Q4 PRN # 200 ml 08/24/17 [Last Taken Unknown] hydrALAZINE [Apresoline 50 mg (*)] 50 mg PO TID #90 tab 08/24/17 [Last Taken Unknown] Discharge Medications: Refer to the Discharge Home Medication list for PRN reason. PICC Care - Routine: Yes - Orders Services needed: Home Care, Registered Nurse, Physical Therapy, Occupational Therapy, Speech Language Pathologist Home Care Face to Face: I certify that this patient was under my care and that I had the required [id number] encounter meeting the encounter requirements on the discharge day. My findings support the fact that the patient is homebound as defined in Home Care Face to Face Continued: [facility] Chapter 7 Medicare Benefits Manual 30.1.1 , The condition of the patient is such that there exists a normal inability to leave home and consequently, leaving home would require a considerable and taxing effort. Isolation Type: None Oxygen: 4LPM on trach mask Diet Recommendation: sodium restricted Diet Texture: Regular Texture Diet, Thin Liquids, Meds Crushed in Puree, Non Oral Meds Weigh Patient: daily (keep daily log) Activity/Weight Bearing Restrictions: with walker as tolerated - Labs/Radiology BMP Date: 08/25/17 (check every Wednesday and starting 08/30) HCT/HGB Date: 08/25/17 (check every Wednesday and starting 08/30) Call or Fax Lab and Imaging Results to: Dr. Harinder Verduzco and Dr. Scott Garland - Follow Up Care Current Providers and Referrals: Christopher Ramirez MD [Primary Care Provider] - Leonard Verduzco MD [Medical Doctor] - 08/26/17 9:30 am Jovany Alcaraz MD [Medical Doctor] - follow up in 1 week Torito Saunders MD [Medical Doctor] - (please follow-up next Wednesday for chemo ; office will call you to schedule)
--- NOTE | 2017-08-24 15:23 | ASMTLACE ---
LACE Length of stay for Answers: 14 days or more current admission Acuity / Level of Answers: Yes Care: Did the patient have an inpatient admission? Comorbidities - select Answers: Any tumor (including all that apply lymphoma or leukemia) Coronary Artery Disease Diabetes (uncontrolled or controlled) Mild liver or renal disease Other Notes: HTN # of Emergency department Answers: 0 visits in the last 6 months Score: 18 Date Signed: 08/24/2017 03:22 PM Electronically Signed By:Ariella Koch RN
--- NOTE | 2017-08-24 17:42 | PDDCSUM ---
Discharge Summary Discharge Summary: DISCHARGE SUMMARY FOLLOW-UP ITEMS: 1. Repeat creatinine BUN lytes and hemoglobin tomorrow, then Wednesday and weekly thereafter 2. Ordered Procrit injections at [facility] DATE OF ADMISSION: 07/27/2017 DATE OF DISCHARGE: 08/24/2017 DISCHARGE DIAGNOSES: 1. 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 Acute tubular necrosis 3. Chronic kidney disease stage 4 4. Acute aspiration pneumonia 5. Anemia of chronic kidney disease 6. Diabetes mellitus type 2 with hyperglycemia 7. Acute atelectasis 8. Chronic hypertension 9. Acute hyperkalemia 10. Acute hypoxic respiratory failure 11. Superficial cephalic vein thrombosis of left upper extremity 12. Morbid obesity CONSULTATIONS: Nephrology, ear nose and throat, pulmonary, oncology PROCEDURES / IMAGIN07/27/[address] Alcaraz, multiple VFSS studies, peg tube placement CHIEF COMPLAINT: Acute upper airway obstruction SUBJECTIVE: Patient is feeling well at time discharge, he feels steady on his feet, he feels very comfortable going home, he is not experiencing any pain PHYSICAL EXAM ON DISCHARGE: Systolic blood pressure 130-150, 60 70, satting well on 4 liters/minute trach mask, obese, ongoing anasarca, some inspiratory crackles in the bilateral bases , alert awake oriented x3, abdomen is soft, no erythema and is feeding tube site , bowel sounds are present LABS ON DISCHARGE: Creatinine 3.8, BUN 71, potassium 4.2, hemoglobin 7.5 HOSPITAL COURSE BY PROBLEM: 1. 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 The patient presented from the ears and throat office of Dr. Alcaraz for acute upper airway obstruction and stabilization via tracheostomy with new diagnosis of lingular squamous cell carcinoma at the tongue base. The patient was initially admitted to their service following his tracheostomy placement and he received dietary stabilization with PEG tube placement. He was seen in consultation by Oncology and was initiated on a once weekly carbo/Taxol chemotherapy, and he is currently received 3 cycles. He will continue seeing Dr. Torito Saunders at [facility] and he will continue on once weekly carbo/Taxol. He is currently tolerating his chemotherapy well and his airway has been well stabilized. He is currently completely dependent on tracheostomy with trach mask and is utilizing 4 liters/minute. His hospitalization was extended secondary to persistent cough and irritation at the trach site, and the patient has responded well to inhaled lidocaine to june his cough. He has not required this in a over 1 week, and he will be prescribed a limited supply as emergency dosing at home. All of his home oxygen and tracheostomy equipment has been ordered prior to discharge. 2. Acute tubular necrosis. Secondary to renal hypoperfusion in the setting of his surgical procedures and acute illness with a peak creatinine of 3.8. His baseline serum creatinine level is 2.5-3.0. He normally follows up with Dr. Scott Garland. He is most likely experiencing acute tubular necrosis following his renal injury, and his creatinine level has remained elevated. This has resulted in anasarca and Dr. Farhat Velasco has evaluated the patient prior to discharge, recommending Bumex 1 mg twice daily with frequent outpatient lab monitoring. The patient will also monitor his daily weights and this has been discussed with the patient his prior to discharge. He will follow up with Dr. Verduzco on and then Dr. Garland thereafter. He will avoid NSAIDs and other renal toxins. 3. Anemia of chronic kidney disease. Patient did receive blood transfusions during this hospitalization as well as Procrit. He will be continued on Procrit injections as an outpatient. 4. Aspiration pneumonia. Patient received IV vancomycin and levofloxacin during his hospitalization and was transitioned to liquid Augmentin for treatment of MSSA for 14 total days. 5. Diabetes mellitus type 2 with hyperglycemia. Patient was continued on Actos , Lantus as well as insulin sliding scale. 6. Acute atelectasis. Patient was encouraged to frequently ambulate, as incentive spirometry was not feasible with his tracheostomy. 7. Acute hypoxic respiratory failure. Evidenced by SpO2 of 85% on 30% FiO2 requiring up titration to 50-60% FiO2, with objective tachypnea and respiratory rate of greater than 22 with frothy secretions indicating that his respiratory failure was secondary to a combination of pneumonia, atelectasis, mucus plugging and not the original surgical procedure. The patient had his oxygen requirements went to 4 L by time of discharge and had all trach supplies ordered. He will be completely trach dependent moving forward. He has a [place] valve. 8. Superficial cephalic vein thrombosis of the left upper extremity. This resulted in some edema, this was elevated and warm compress was applied, but DVT prophylaxis was not systemically given. 9. Chronic hypertension. Patient's home antihypertensives were discontinued and Nephrology recommended hydralazine and beta-timothy. These can be up titrated in the outpatient setting if needed. DISCHARGE MEDICATIONS: Please see official discharge medication reconciliation sheet in chart , discontinue amlodipine and losartan, initiate metoprolol 25 twice daily, hydralazine 50 mg 3 times daily, Prozac 10, Bumex 1 mg twice daily, lidocaine patch, inhaler lidocaine as needed, pantoprazole 40 mg daily, Senokot scheduled twice daily. DISCHARGE INSTRUCTIONS: Patient has follow-up scheduled on at [facility], follow up at [facility] on Wednesday, and he should follow up with Dr. Alcaraz office thereafter. TIME SPENT: Greater than 30 minutes were spent on direct patient care, as well as discharge planning and preparation.
--- NOTE | 2017-08-24 17:50 | ASMTCMCOM ---
CM Note CM Note Notes: Pt was supposed to dc home today but was unable to as [employer], company delivering trach equipment and supplies was not able to provide Resp Therapist to go out to pt's home this evening for teaching and setup. Pt very disappointed but assured him and his that we would work hard in the morning to make this happen tomorrow. Left voicemail for [facility]. Anticipate pt will dc home tomorrow. Date Signed: 08/24/2017 05:49 PM Electronically Signed By:Ariella Koch RN
[2017-08-24] MEDS: INSULIN GLARGINE 100 UNITS/ML UNIT SC SCH (21:44)
[2017-08-24] MEDS: LORazepam 1 MG/0.5 ML UDSYR PO PRN (21:46)
[2017-08-24] MEDS: PATCH REMOVAL 1 EA PATCH TD SCH (21:49)
[2017-08-25] MEDS: HEPARIN 5,000 UNIT/0.5 ML SYR SC SCH ×2 (05:33→14:05)
[2017-08-25] MEDS: METOPROLOL TARTRATE 25 MG TAB PO SCH (08:30)
[2017-08-25] MEDS: LIDOCAINE 4%/MENTHOL 1% PATCH TD SCH (08:30)
[2017-08-25] MEDS: MULTIVITAMINS 1 EACH TAB PO SCH (08:32)
[2017-08-25] MEDS: ALLOPURINOL 300 MG TAB PO SCH (08:32)
[2017-08-25] MEDS: PANTOPRAZOLE SODIUM 40 MG TAB PO SCH (08:32)
[2017-08-25] MEDS: FLUoxetine 10 MG CAP PO SCH (08:32)
[2017-08-25] MEDS: PIOGLITAZONE HCL 15 MG TAB PO SCH (08:32)
--- NOTE | 2017-08-25 08:54 | PDIAF ---
- Diagnosis Diagnosis: Lingular squamous cell cancer at base of tongue, CKD Stage IV, Resp Failure Code Status: Full Code - Medication Management Discharge Medications: Medications to Continue on Transfer Allopurinol [Allopurinol 300 MG (RX)] 300 mg PO DAILY 07/23/17 [Last Taken 07/26] Aspirin [Aspirin 81mg (*)] 81 mg PO DAILY 07/23/17 [Last Taken 07/25/17] Pioglitazone HCl [Actos] 30 mg PO DAILY 07/23/17 [Last Taken 07/26/17] Insulin Detemir [Levemir] 20 unit SQ DAILY 07/27/17 [Last Taken 07/26/17] Multivitamins [Multivitamin (*)] 1 each PO DAILY 07/27/17 [Last Taken Unknown] Bumetanide 1 mg PO BIDDIUR #120 tablet 08/24/17 [Last Taken Unknown] FLUoxetine [Prozac 10 MG (*)] 10 mg PO DAILY #30 cap 08/24/17 [Last Taken Unknown] Lidocaine 1% [Lidocaine HCl 1%] 2 ml IH Q4H PRN #30 ml 08/24/17 [Last Taken Unknown] Lidocaine 4%/Menthol 1% [Icy Hot Lidocaine/Menthol 4%/1% Patch (*)] 1 patch TD DAILY #30 patch 08/24/17 [Last Taken Unknown] Metoprolol Tartrate [Lopressor 25 mg (*)] 25 mg PO BID #60 tab 08/24/17 [Last Taken Unknown] Pantoprazole Sodium [Protonix 40mg (*)] 40 mg PO DAILY #30 tab 08/24/17 [Last Taken Unknown] Patch Removal 1 ea TD DAILY21 patch 08/24/17 [Last Taken Unknown] Sennosides [Senokot] 2 tab PO BID tab 08/24/17 [Last Taken Unknown] guaiFENesin/DEXTROMETHORPHAN [Robitussin Dm Oral Liquid (*)] 10 ml PO Q4 PRN # 200 ml 08/24/17 [Last Taken Unknown] hydrALAZINE [Apresoline 50 mg (*)] 50 mg PO TID #90 tab 08/24/17 [Last Taken Unknown] Discharge Medications: Refer to the Discharge Home Medication list for PRN reason. PICC Care - Routine: Yes - Orders Services needed: Home Care, Registered Nurse, Physical Therapy, Occupational Therapy, Speech Language Pathologist Home Care Face to Face: I certify that this patient was under my care and that I had the required [id number] encounter meeting the encounter requirements on the discharge day. My findings support the fact that the patient is homebound as defined in Home Care Face to Face Continued: [facility] Chapter 7 Medicare Benefits Manual 30.1.1 , The condition of the patient is such that there exists a normal inability to leave home and consequently, leaving home would require a considerable and taxing effort. Isolation Type: None Oxygen: 4LPM on trach mask Diet Recommendation: sodium restricted Diet Texture: Regular Texture Diet, Thin Liquids, Meds Crushed in Puree, Non Oral Meds Weigh Patient: daily (keep daily log) Activity/Weight Bearing Restrictions: with walker as tolerated Additional Instructions: [facility] [phone] - Labs/Radiology BMP Date: 08/30/17 (check every Wednesday and starting 08/30) HCT/HGB Date: 08/30/17 (check every Wednesday and starting 08/30) Call or Fax Lab and Imaging Results to: Dr. Harinder Verduzco and Dr. Scott Garland - Follow Up Care Current Providers and Referrals: Christopher Ramirez MD [Primary Care Provider] - Leonard Verduzco MD [Medical Doctor] - 08/26/17 9:30 am Torito Saunders MD [Medical Doctor] - (please follow-up next Wednesday for chemo ; office will call you to schedule) Jovany Alcaarz MD [Medical Doctor] - follow up in 1 week
[2017-08-25] MEDS: SENNOSIDES 1 TAB PO SCH (10:16)
--- NOTE | 2017-08-25 11:11 | PDDCSUM ---
Discharge Summary Discharge Summary: DISCHARGE SUMMARY FOLLOW-UP ITEMS: 1. Repeat creatinine BUN lytes and hemoglobin Wednesday and , weekly thereafter 2. Ordered Procrit injections at [facility] DATE OF ADMISSION: 07/27/2017 DATE OF DISCHARGE: 08/25/2017 DISCHARGE DIAGNOSES: 1. 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 Acute tubular necrosis 3. Chronic kidney disease stage 4 4. Acute aspiration pneumonia 5. Anemia of chronic kidney disease 6. Diabetes mellitus type 2 with hyperglycemia 7. Acute atelectasis 8. Chronic hypertension 9. Acute hyperkalemia 10. Acute hypoxic respiratory failure 11. Superficial cephalic vein thrombosis of left upper extremity 12. Morbid obesity CONSULTATIONS: Nephrology, ear nose and throat, pulmonary, oncology PROCEDURES / IMAGIN07/27/[address] Alcaraz, multiple VFSS studies, peg tube placement CHIEF COMPLAINT: Acute upper airway obstruction SUBJECTIVE: Patient is feeling well at time discharge, he feels steady on his feet, he feels very comfortable going home, he is not experiencing any pain PHYSICAL EXAM ON DISCHARGE: Systolic blood pressure 130-150, 60 70, satting well on 4 liters/minute trach mask, obese, ongoing anasarca, some inspiratory crackles in the bilateral bases w/ some fine exp wheeze, alert awake oriented x3 LABS ON DISCHARGE: Creatinine 3.8, BUN 72, potassium 4.2, hemoglobin 8.4 HOSPITAL COURSE BY PROBLEM: 1. 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 The patient presented from the ears and throat office of Dr. Alcaraz for acute upper airway obstruction and stabilization via tracheostomy with new diagnosis of lingular squamous cell carcinoma at the tongue base. The patient was initially admitted to their service following his tracheostomy placement and he received dietary stabilization with PEG tube placement. He was seen in consultation by Oncology and was initiated on a once weekly carbo/Taxol chemotherapy, and he is currently received 3 cycles. He will continue seeing Dr. Torito Saunders at [facility] and he will continue on once weekly carbo/Taxol. He is currently tolerating his chemotherapy well and his airway has been well stabilized. His hospitalization was extended secondary to persistent cough and irritation at the trach site, and the patient has responded well to inhaled lidocaine to june his cough. He has not required this in a over 1 week, and he will be prescribed a limited supply as emergency dosing at home. He is currently completely dependent on tracheostomy with trach mask and is utilizing 4 liters/minute. All of his home oxygen and tracheostomy equipment is completely medically necessary, as maintaining the physical airway is absolutely essential to his survival - he requires the suctioning equipment given ongoing secretions in the upper airway that require regular suctioning care to keep from obstructing his airflow; he requires the tracheostomy mask equipment to provide him w/ effective supplemental oxygen delivery, as he has an obstructed airway proximal to the trach and absolutely cannot take supplemental oxygen in any other delivery method by mouth or nares; he requires gauze and site materials to keep the area clean and sterile, to medically prevent infection. Failure to provide any of this necessary equipment - which has been prescribed by this physician prior to discharge - places the patient at high risk for . 2. Acute tubular necrosis. Secondary to renal hypoperfusion in the setting of his surgical procedures and acute illness with a peak creatinine of 3.8. His baseline serum creatinine level is 2.5-3.0. He normally follows up with Dr. Scott Garland. He is most likely experiencing acute tubular necrosis following his renal injury, and his creatinine level has remained elevated. This has resulted in anasarca and Dr. Farhat Velasco has evaluated the patient prior to discharge, recommending Bumex 1 mg twice daily with frequent outpatient lab monitoring. The patient will also monitor his daily weights and this has been discussed with the patient his prior to discharge. He will follow up with Dr. Verduzco on and then Dr. Garland thereafter. He will avoid NSAIDs and other renal toxins. 3. Anemia of chronic kidney disease. Patient did receive blood transfusions during this hospitalization as well as Procrit. He will be continued on Procrit injections as an outpatient. 4. Aspiration pneumonia. Patient received IV vancomycin and levofloxacin during his hospitalization and was transitioned to liquid Augmentin for treatment of MSSA for 14 total days. 5. Diabetes mellitus type 2 with hyperglycemia. Patient was continued on Actos , Lantus as well as insulin sliding scale. 6. Acute atelectasis. Patient was encouraged to frequently ambulate, as incentive spirometry was not feasible with his tracheostomy. 7. Acute hypoxic respiratory failure. Evidenced by SpO2 of 85% on 30% FiO2 requiring up titration to 50-60% FiO2, with objective tachypnea and respiratory rate of greater than 22 with frothy secretions indicating that his respiratory failure was secondary to a combination of pneumonia, atelectasis, mucus plugging and not the original surgical procedure. The patient had his oxygen requirements went to 4 L by time of discharge and had all trach supplies ordered. He will be completely trach dependent moving forward. He has a Passy Ilene valve. 8. Superficial cephalic vein thrombosis of the left upper extremity. This resulted in some edema, this was elevated and warm compress was applied, but DVT prophylaxis was not systemically given. 9. Chronic hypertension. Patient's home antihypertensives were discontinued and Nephrology recommended hydralazine and beta-timothy. These can be up titrated in the outpatient setting if needed. DISCHARGE MEDICATIONS: Please see official discharge medication reconciliation sheet in chart , discontinue amlodipine and losartan, initiate metoprolol 25 twice daily, hydralazine 50 mg 3 times daily, Prozac 10, Bumex 1 mg twice daily, lidocaine patch, inhaler lidocaine as needed, pantoprazole 40 mg daily, Senokot scheduled twice daily. DISCHARGE INSTRUCTIONS: Patient has follow-up scheduled on at [facility], follow up at [facility] on Wednesday, and he should follow up with Dr. Alcaraz office thereafter. TIME SPENT: Greater than 30 minutes were spent on direct patient care, as well as discharge planning and preparation.
--- NOTE | 2017-08-25 12:28 | SOAPPROG ---
[facility] Progress Note Assessment/Plan: Assessment: 1. DALY on CKD IV. Had some recovery but creat now stuck around 3.9. 2. CKD IV. Likely diabetic nephropathy. Nephrotic. B/l creat ~2.6-2.7. May have new baseline. 3. HTN. Continue metoprolol, hydralazine. Titrate as outpatient. 4. Volume overload. Continue bumex. May need to double dose. 5. Tongue cancer. Carboplatin/paclitaxel chemo, per onc. 6. Anemia. Procrit 40K units/wk. 7. Dispo. Somewhat tenuous status, but may d/c from renal standpoint. Will f/u with us tomorrow. 8. Depression. Continue prozac. Plan: 07/28/17 12:27 07/29/17 10:25 07/29/17 10:28 07/29/17 10:29 07/29/17 10:30 07/29/17 10:32 08/09/17 09:08 08/09/17 09:09 08/09/17 09:12 08/09/17 09:14 08/11/17 08:32 08/18/17 17:34 08/18/17 17:35 08/19/17 15:21 08/20/17 16:00 08/25/17 12:25 08/25/17 12:27 Subjective: Ready to go home. Objective: Vital Signs Temp Pulse Resp BP Pulse Ox 36.3 C 67 18 148/68 H 93 08/25/17 08:28 08/25/17 08:30 08/25/17 08:28 08/25/17 08:32 08/25/17 08:28 Laboratory Results 08/25/17 04:54 08/25/17 04:54 08/24/17 08/25/17 08/26/17 05:59 05:59 05:59 Intake Total 600 500 Output Total 670 Balance -70 500 Sitting outside in wheelchair, NAD, PM valve in place RRR, no m/g/r Coarse crackles 1/3 up bilaterally 3+ LE pitting edema ICD10 Worksheet Patient Problems: Problems Problem Status Onset Carcinoma of base of tongue Acute
--- NOTE | 2017-08-25 16:05 | ASMTCMCOM ---
CM Note CM Note Notes: [facility] able to approve pt's suction machine after receiving detailed progress notes. They will deliver this PM. They were initially unable to provide an RN for teaching. [facility] was willing to step in but Shana from RT made a call to Zoe, an RT funeral location manager at [facility] and they agreed to get someone up from [place] to meet pt at his home at 6:00. Pt able to DC. Date Signed: 08/25/2017 04:04 PM Electronically Signed By:Alanna Zamudio LCSW
--- NOTE | 2017-08-25 16:06 | ASDISCHSUM ---
Discharge Information Plan Status: Medically Cleared to Leave: Discharge Date: D/C Disposition: ADT D/C Disposition:Home Health Service Projected Discharge Date:08/24/2017 11:00 AM Transportation at D/C: Discharge Delay Reason: Follow-Up Date:08/24/2017 11:00 AM Discharge Slot: Final Diagnosis: Placement Information Referral Type:*Long-Term/SNF Referral ID:[id number] Provider Name: Address 1: Phone Number: Address 2: Fax Number: City: Selection Factors: State: Referral Type:*Home Health Care Services Referral ID:[id number] Provider Name:[facility] Address 1:[address] [address] Address 2: City:[place] Selection Factors: State:[place] Patient Contact Information Contact Name:MARKSHARIFChristopherERNESTO Relationship: Address:[address] Work Phone: City:[place] Alternate Phone: [facility]/Zip Code:[place] [address] Email: Financial Information Financial Class:Medicare Primary Plan Desc:MEDICARE INPATIENT Primary Plan Number:[id number] Secondary Plan Desc:ERNESTINE INDEMNITY Secondary Plan Number:[id number] Assessment Information LACE LACE Length of stay for Answers: 14 days or more current admission Acuity / Level of Answers: Yes Care: Did the patient have an inpatient admission? Comorbidities - select Answers: Any tumor (including all that apply lymphoma or leukemia) Coronary Artery Disease Diabetes (uncontrolled or controlled) Mild liver or renal disease Other Notes: HTN # of Emergency department Answers: 0 visits in the last 6 months Score: 18 Date Signed: 08/24/2017 03:22 PM Electronically Signed By:Ariella Koch RN [facility] Progress Note CM Note CM Note Notes: Patient admitted for biopsy of tongue mass. He also had a tracheostomy placed for airway protection. He will have a G tube placed in two days. He has a history of Diabetes and chronic renal insufficiency. His head mechanic, Dr Garland, will follow him here. Oncology will follow for treatment options of this probable squamos cell carcinoma. Patient is normally independent and has a supportive . PT/OT have been ordered, and Case Management will assist with discharge planning. Date Signed: 07/28/2017 02:30 PM Electronically Signed By:Rochelle Villanueva RN [facility] Progress Note CM Note CM Note Notes: Patient's biopsy came back positive for cancer. Met with patient's , Mark for emotional support along with Chaplain Ernestine. Mark states patient has been active and they have made many wonderful memories in the first 7 years of their detention together. Mark really wants to make sure she is asking what the patient wants to do in terms of pursuing treatment for the cancer but he cannot talk right now. She states they have always had good communication and worries he might not be able to talk. Suggested she explore assistive technology and that during periods of time right now maybe they can text back and forth to communicate. Mark had not thought of this and was encouraged this could be a solution and strategy for during chemo treatments. Mark hopes to talk to patient on Wednesday when they might cap the trach so he can communicate. She hopes to find out how much treatment he wants to pursue. D/C plan is unclear presently. OT/PT/Dealer Card Room have all been ordered. CM will follow. Date Signed: 07/29/2017 04:04 PM Electronically Signed By:Amee Borrego LCSW [facility] CM Progress Note CM Note CM Note Notes: Spoke with Chaplain Shay, who states he gave the family resources with the cancer program here at [facility]. Patient has several procedures scheduled for today including a trach change and a PEG placement. CM will follow. Date Signed: 07/30/2017 12:58 PM Electronically Signed By:Amee Borrego LCSW [facility] CM Progress Note CM Note CM Note Notes: PT is recommending inpt rehab (no order in yet) and OT recommending SNF at d/c. Pt currently with trach collar and Bipap trials. He has a new PEG with Jevity feedings and a Hill. He may transfer to Med/Surg soon. CM will continue to follow. Date Signed: 07/31/2017 03:22 PM Electronically Signed By:CALIN Schroeder [facility] CM Progress Note CM Note CM Note Notes: Chart reviewed. Discussed with Dr. Ortega. Per Dr. Berman's note, consultation made to Oncology Radiation. Also speaking with inpatient rehab regarding patient's need for treatment timeline as this would impact the ability for inpatient rehab to accommodate Likely unable to go to SNF if he is under treatment for cancer with chemo and radiation. Spoke with his who is overwhelmed and does not have a large support community. Call to [facility], Metoprolol dose verified but no refills since December. Left message with Dr. Ramirez's office to call for medication verification. Therapy postponed due to rapid heart rates.No clear plan for discharge yet. CM to follow Date Signed: 08/03/2017 03:49 PM Electronically Signed By:Aida Aparicoi RN [facility] Progress Note CM Note CM Note Notes: Spoke with Dr Berman about pts treatment plan. The details havent been worked out yet but started working on eventual DC plan today. First called inpt rehab to discuss possibility of taking a pt who is in treatment for cancer. They stated they cannot handle someone getting IV chemo on their unit. Also if the pt was getting radiation, they cannot pay for !$100/day cost of [facility]. They also consider time at radiation is time from therapy so that he possible wouldnt qualify. Finally, they dont know how he would respond to treatment. Next called [facility]. Judie in admissions stated they cannot take pt because 1) They do not have an time lock expert. 2) Medicare would require [facility] to pay for the treatment costs and they cannot afford it. 3) Pt could not stay there while awaiting start of treatment because Medicare requires at least a 20-day stay and he would likely start treatment in less than 20-days. Finally [facility] ([facility] and [facility]) to see if they would take a pt with a traech. [facility] CANNOT MANAGE A TRAECH. [facility] will only take a pt that has had a traech for at least 30 days and does not require much suctioning. In addition, The [facility] also expressed concerns about the costs of pts potential chemo and radiation treatment. They would likely decline pt due to that. Met with pt and to let them know the potential DC issues down the road. Also provided resources and support for pts Mark. CM will continue to follow. Date Signed: 08/04/2017 04:06 PM Electronically Signed By:Alanna Zaumdio LCSW [facility] CM Progress Note CM Note CM Note Notes: Palliative care consult ordered for pt for clarification of his goals. At this time, radiation is not indicated fot pt, per prog notes. Spoke with Mary Grace in [facility] rehab. Depending on pt's chemo schedule and if he chooses to go ahead with treatment, they may be able to take him there. CM will continue to follow. Date Signed: 08/05/2017 04:17 PM Electronically Signed By:Alanna Zamudio LCSW [facility] Progress Note CM Note CM Note Notes: There was a palliative consult this morning. Present were pt, his Mark, Imani Cody, Onc SerafinMariah, Palliative and this CM. Pt and hiw were most interested in understanding the likely treatment plan. Imani described it thoroughly and answered mark's questions, about side effects, start date, how long and when they would know if it is effective. Pt indicated he wanted to move forward with treatment. Pt is not a candidate for inpt rehab, CND or LTAC at this time due to the combination of chemo and new traech. Pt will likely remain at [facility] at least through his first round of chemo. CM marbella continue to follow. Date Signed: 08/06/2017 12:25 PM Electronically Signed By:Alanna Zamudio LCSW [facility] CM Progress Note CM Note CM Note Notes: Patient and are interested in continuing tx. Had Chemo yesterday. Trach care, airway obstruction, tumor concern so in ICU. Date Signed: 08/09/2017 04:28 PM Electronically Signed By:Payton Siegel LCSW [facility] CM Progress Note CM Note CM Note Notes: The combination of patient's trach and the need for chemotherapy has limited patient's options. [facility] inpatient rehab is looking into whether or not they can take the patient with his chemotherapy requirements. Spoke with Bee who is waiting on answers from her 's as to whether they can handle all of patient's needs. In rounds, Dr. Retana said oncology was looking into patient getting his chemo every 3 weeks instead of weekly. Bee states this actually won't make much difference. D/C plan still TBD. CM will follow. Date Signed: 08/12/2017 12:45 PM Electronically Signed By:Amee Borrego LCSW [facility] CM Progress Note CM Note CM Note Notes: Pt tx back to [facility]N. Per pt's , Mark, Inpt Rehab had reached out to her yesterday and indicated they will consider pt. Pt will have chemo again on Wednesday. CM to follow. Date Signed: 08/14/2017 04:46 PM Electronically Signed By:Alanna Zamudio LCSW [facility] Progress Note CM Note CM Note Notes: Pt is having his second round of chemo today. Pt's DC options are limitd by the combination of traech and chemo. Pt and would prefer weekly chemo in the hopes that pt will no longer need traech. Going to inpt rehab is an option if they can take pt on chemo. SNFs and LTACs do not want to take. CM to follow. Date Signed: 08/15/2017 03:55 PM Electronically Signed By:Alanna Zamudio LCSW [facility] CM Progress Note CM Note CM Note Notes: Per Hospitalist, Oncology and Rehab to discuss treatment plan. Hopefully the patient may be able to go to inpt rehab for period of time. He is making progress. Still has a trach and is now off feeding via peg tube. Reviewed dc POC with patient and his . CM to follow. Disposition to inpatient rehab. Date Signed: 08/16/2017 03:14 PM Electronically Signed By:Aida Aparicio RN [facility] CM Progress Note CM Note CM Note Notes: Due to pt's creatinine, pt not DC for a few days. Inpt rehab aware and cannot accept pt over the weekend. They will reevaluate on Wednesday. If pt does not meet criteris on Wednesday, pt and agree to SNF placement. CM to follow. Date Signed: 08/19/2017 04:20 PM Electronically Signed By:Alanna Zamudio LCSW [facility] Progress Note CM Note CM Note Notes: Current plan is for inpt rehab to re-eval pt on Wednesday for admission there. Backup plan is SNF. [facility] is comfortable with traechs. Left a msg for admissions. They will need referral if Inpt rehab declines pt. After Wednesday's chemo, pt will not have chemo for two weeks. No Snf will take pt after two weeks due to chemo but pt and Mark are now comfortable with pt's traech and [facility] has been providing teaching to both. CM to follow. Date Signed: 08/20/2017 04:05 PM Electronically Signed By:Alanna Zamudio LCSW [facility] CM Progress Note CM Note CM Note Notes: Inpt Rehab declined pt today as he is no longer appropriate for that LOC. Discussed home care and SNF options with pt and his and they made decision for pt to d/c home with home care. His understands she will need to learn suctioning and trach care. Spoke with [facility] and they are able to accept pt for trach care, RN/PT/OT/LIVE HANGER. Respiratory therapy set up home O2 through [employer]. They will also supply the suction machine and supplies. Pt is very happy to know he is going home tomorrow. Date Signed: 08/23/2017 04:44 PM Electronically Signed By:CALIN Schroeder Case Management Discharge Plan Note Case Management Discharge Discharge Order Complete? Answers: Yes Patient to Obtain Answers: via Family Medications Transportation Arranged Answers: Family/Friends Faxed Final Orders Answers: No Notes: avail on Zoce[employer] for [facility] Family Notified Answers: Yes Notes: present Discharge Comments Notes: Pt will dc home today with . He will be followed by [facility], confirmed w/Kimberly at [facility] that they can accept. [employer] will deliver portable O2 to hospital and then to home and [employer] will deliver trach supplies/equipment. Confirmed w/[employer] that they will send RT out to pt's home today for pt/family teaching on trach care and equip. Met w/pt and , Elida, and they are in agreement w/dc plan of care. Discussed w/MD and RN who will call report to [facility]. Date Signed: 08/24/2017 03:21 PM Electronically Signed By:Ariella Koch RN [facility] CM Progress Note CM Note CM Note Notes: Pt was supposed to dc home today but was unable to as [facility], company delivering trach equipment and supplies was not able to provide Resp Therapist to go out to pt's home this evening for teaching and setup. Pt very disappointed but assured him and his that we would work hard in the morning to make this happen tomorrow. Left voicemail for [facility]. Anticipate pt will dc home tomorrow. Date Signed: 08/24/2017 05:49 PM Electronically Signed By:Ariella Koch RN [facility] CM Progress Note CM Note CM Note Notes: [facility] able to approve pt's suction machine after receiving detailed progress notes. They will deliver this PM. They were initially unable to provide an RN for teaching. [facility] was willing to step in but Shana from RT made a call to Zoe, an RT manager of construction at [facility] and they agreed to get someone up from [place] to meet pt at his home at 6:00. Pt able to DC. Date Signed: 08/25/2017 04:04 PM Electronically Signed By:Alanna Zamudio LCSW Intervention Information Intervention Type:*IM-Signed Date of Service:08/24/2017 12:46 PM Patient Type:Inpatient Staff Member:Geovanna Pereira Hours: Discipline: Severity: Comment:
[2017-08-25 16:19] VITALS: BP 137/70
== END 2017-08-25 16:44 | disposition home health service (06) | DRG 11 ==
LOC: FSGY 09:28 → F2N 12:51 → OBSVTOIN 07-28 08:16 → F1N 08-01 16:41 → F2N 08-07 16:28 → F1N 08-14 13:54
PROVIDERS: ADMIT Otolaryngology; ATTEND Internal Medicine
PROC: 0B110F4 Bypass Trachea to Cutaneous with Tracheostomy Device, Open Approach (ICD-10-PCS; principal; 2017-07-27 11:00)
PROC: 0CBS8ZX Excision of Larynx, Via Natural or Artificial Opening Endoscopic, Diagnostic (ICD-10-PCS; principal; 2017-07-27 11:00)
PROC: 0B968ZZ Drainage of Right Lower Lobe Bronchus, Via Natural or Artificial Opening Endoscopic (ICD-10-PCS; 2017-07-29)
PROC: 0B9B8ZZ Drainage of Left Lower Lobe Bronchus, Via Natural or Artificial Opening Endoscopic (ICD-10-PCS; 2017-07-29)
PROC: 0B9J8ZZ Drainage of Left Lower Lung Lobe, Via Natural or Artificial Opening Endoscopic (ICD-10-PCS; 2017-07-29)
PROC: 0B918ZZ Drainage of Trachea, Via Natural or Artificial Opening Endoscopic (ICD-10-PCS; 2017-07-29)
PROC: 0B978ZZ Drainage of Left Main Bronchus, Via Natural or Artificial Opening Endoscopic (ICD-10-PCS; 2017-07-29)
PROC: 0B9F8ZZ Drainage of Right Lower Lung Lobe, Via Natural or Artificial Opening Endoscopic (ICD-10-PCS; 2017-07-29)
PROC: 02HV33Z Insertion of Infusion Device into Superior Vena Cava, Percutaneous Approach (ICD-10-PCS; 2017-07-30)
PROC: 0DH63UZ Insertion of Feeding Device into Stomach, Percutaneous Approach (ICD-10-PCS; 2017-07-30)
PROC: 3E04305 Introduction of Other Antineoplastic into Central Vein, Percutaneous Approach (ICD-10-PCS; 2017-08-08)
PROC: 30233N1 Transfusion of Nonautologous Red Blood Cells into Peripheral Vein, Percutaneous Approach (ICD-10-PCS; 2017-08-17)
DX: C01 Malignant neoplasm of base of tongue (principal); J98.8 Other specified respiratory disorders; R13.12 Dysphagia, oropharyngeal phase; N17.0 Acute kidney failure with tubular necrosis; J96.01 Acute respiratory failure with hypoxia; J69.0 Pneumonitis due to inhalation of food and vomit; B95.61 Methicillin susceptible Staphylococcus aureus infection as the cause of diseases classified elsewhere; N18.4 Chronic kidney disease, stage 4 (severe); J98.11 Atelectasis; E11.22 Type 2 diabetes mellitus with diabetic chronic kidney disease; D63.8 Anemia in other chronic diseases classified elsewhere; E11.65 Type 2 diabetes mellitus with hyperglycemia; I12.9 Hypertensive chronic kidney disease with stage 1 through stage 4 chronic kidney disease, or unspecified chronic kidney disease; E87.0 Hyperosmolality and hypernatremia; I82.612 Acute embolism and thrombosis of superficial veins of left upper extremity; E87.3 Alkalosis; E87.5 Hyperkalemia; E66.01 Morbid (severe) obesity due to excess calories; F32.9 Major depressive disorder, single episode, unspecified; E11.21 Type 2 diabetes mellitus with diabetic nephropathy; G47.33 Obstructive sleep apnea (adult) (pediatric); I25.10 Atherosclerotic heart disease of native coronary artery without angina pectoris; K59.00 Constipation, unspecified; K21.9 Gastro-esophageal reflux disease without esophagitis; Z68.36 Body mass index [BMI] 36.0-36.9, adult; Z84.2 Family history of other diseases of the genitourinary system; Z95.5 Presence of coronary angioplasty implant and graft; Z79.84 Long term (current) use of oral hypoglycemic drugs
CPT/HCPCS: 82947-QW; 88365-90; 92507-GN; 92523-GN; 92526-GN; 92610-GN; 92611-GN; 97110-GP; 97112-GP; 97116-GP; 97162-GP; 97166-GO; 97530-GO; 97530-GP; 97535-GO; B4087; C1788; G8978-GP-CJ; G8978-GP-CK; G8978-GP-CL; G8979-GP-CI; G8979-GP-CJ; G8987-GO-CK; G8987-GO-CM; G8988-GO-CI; G8988-GO-CJ; G8996-GN-CI; G8996-GN-CJ; G8996-GN-CL; G8997-GN-CI; G8997-GN-CJ; G8998-GN-CI; G8998-GN-CJ; G9168-GN-CJ; G9169-GN-CJ; G9170-GN-CJ; G9171-GN-CI; G9172-GN-CI; G9173-GN-CI; J0330; J0690; J0885; J1100; J1200; J1642; J1644; J1815; J1940; J1956; J2250; J2270; J2370; J2405; J2550; J2704; J3010; J3370; J9045; J9267; P9016; P9047